=== PATIENT | male | born 1985 | race Caucasian/White ===

== ENCOUNTER → 2019-05-23 13:08 | Outpatient (BNVA) | payer MEDICAID, SELFPAY | PROVIDERS: Family Provider Nurse Practitioner; PCP Nurse Practitioner; Visit Provider Psychiatry & Neurology Psychiatry | DX: F20.89 Other schizophrenia (principal); F10.20 Alcohol dependence, uncomplicated; F12.20 Cannabis dependence, uncomplicated; F17.200 Nicotine dependence, unspecified, uncomplicated; G62.1 Alcoholic polyneuropathy | CPT/HCPCS: 99215 ==

== ENCOUNTER → 2019-07-18 08:11 | Outpatient (BNVA) | payer MEDICAID, SELFPAY | PROVIDERS: Family Provider Nurse Practitioner; PCP Nurse Practitioner; Visit Provider Psychiatry & Neurology Psychiatry | DX: F20.89 Other schizophrenia (principal); F10.20 Alcohol dependence, uncomplicated; G62.1 Alcoholic polyneuropathy; F12.20 Cannabis dependence, uncomplicated; F17.200 Nicotine dependence, unspecified, uncomplicated; F33.2 Major depressive disorder, recurrent severe without psychotic features | CPT/HCPCS: 99214 ==

== ENCOUNTER → 2019-07-24 08:16 | Outpatient (BNVA) | payer MEDICAID, SELFPAY | PROVIDERS: Family Provider Nurse Practitioner; PCP Nurse Practitioner; Visit Provider Psychiatry & Neurology Psychiatry | DX: F10.20 Alcohol dependence, uncomplicated (principal); F20.89 Other schizophrenia | CPT/HCPCS: 99214 ==

== ENCOUNTER → 2019-08-02 08:05 | Outpatient (BNVA) | payer MEDICAID, SELFPAY | PROVIDERS: Family Provider Nurse Practitioner; Visit Provider Psychiatry & Neurology Psychiatry | DX: F20.89 Other schizophrenia (principal); F10.20 Alcohol dependence, uncomplicated; F17.200 Nicotine dependence, unspecified, uncomplicated; G62.1 Alcoholic polyneuropathy; F12.20 Cannabis dependence, uncomplicated | CPT/HCPCS: 99213 ==

== ENCOUNTER → 2019-08-23 08:10 | Outpatient (BNVA) | payer MEDICAID, SELFPAY | PROVIDERS: Family Provider Nurse Practitioner; Visit Provider Psychiatry & Neurology Psychiatry | DX: F20.89 Other schizophrenia (principal); F10.20 Alcohol dependence, uncomplicated; F17.200 Nicotine dependence, unspecified, uncomplicated; F12.20 Cannabis dependence, uncomplicated; G62.1 Alcoholic polyneuropathy | CPT/HCPCS: 99213 ==

== ENCOUNTER → 2019-10-18 08:05 | Outpatient (BNVA) | payer MEDICAID, SELFPAY | PROVIDERS: Family Provider Nurse Practitioner; Visit Provider Psychiatry & Neurology Psychiatry | DX: F20.89 Other schizophrenia (principal); F10.20 Alcohol dependence, uncomplicated; F17.200 Nicotine dependence, unspecified, uncomplicated; F12.20 Cannabis dependence, uncomplicated; G62.1 Alcoholic polyneuropathy; F33.41 Major depressive disorder, recurrent, in partial remission | CPT/HCPCS: 99214 ==

== ENCOUNTER → 2019-12-12 09:38 | Outpatient (BNVA) | payer MEDICAID, SELFPAY | PROVIDERS: Family Provider Nurse Practitioner; Visit Provider Psychiatry & Neurology Psychiatry | DX: F20.89 Other schizophrenia (principal); F10.20 Alcohol dependence, uncomplicated; F17.200 Nicotine dependence, unspecified, uncomplicated; F12.20 Cannabis dependence, uncomplicated; G62.1 Alcoholic polyneuropathy | CPT/HCPCS: 99213 ==

== ENCOUNTER → 2020-02-01 12:42 | Outpatient (BNVA) | payer MEDICAID, SELFPAY | PROVIDERS: Family Provider Nurse Practitioner; Visit Provider Psychiatry & Neurology Psychiatry | DX: F20.89 Other schizophrenia (principal); F10.20 Alcohol dependence, uncomplicated; F12.20 Cannabis dependence, uncomplicated; F17.200 Nicotine dependence, unspecified, uncomplicated; G62.1 Alcoholic polyneuropathy | CPT/HCPCS: 99215 ==

== ENCOUNTER → 2020-02-07 11:29 | Outpatient (BNVA) | payer MEDICAID, SELFPAY | PROVIDERS: Family Provider Nurse Practitioner; Visit Provider Psychiatry & Neurology Psychiatry | DX: F20.89 Other schizophrenia (principal); F10.20 Alcohol dependence, uncomplicated; F17.200 Nicotine dependence, unspecified, uncomplicated; F12.20 Cannabis dependence, uncomplicated; G62.1 Alcoholic polyneuropathy | CPT/HCPCS: 99214 ==

== ENCOUNTER → 2020-02-15 15:34 | Outpatient (BNVA) | payer MEDICAID, SELFPAY | PROVIDERS: Family Provider Nurse Practitioner; Visit Provider Psychiatry & Neurology Psychiatry | DX: F20.89 Other schizophrenia (principal); F10.20 Alcohol dependence, uncomplicated; F17.200 Nicotine dependence, unspecified, uncomplicated; F12.20 Cannabis dependence, uncomplicated | CPT/HCPCS: 90832 ==

== ENCOUNTER → 2020-03-13 08:45 | Outpatient (BNVA) | payer MEDICAID, SELFPAY | PROVIDERS: Family Provider Nurse Practitioner; Visit Provider Psychiatry & Neurology Psychiatry | DX: F20.89 Other schizophrenia (principal); F10.20 Alcohol dependence, uncomplicated; F12.20 Cannabis dependence, uncomplicated; F17.200 Nicotine dependence, unspecified, uncomplicated | CPT/HCPCS: 99214 ==

== ENCOUNTER → 2020-04-09 08:10 | Outpatient (BNVA) | payer MEDICAID, SELFPAY | PROVIDERS: Family Provider Nurse Practitioner; Visit Provider Psychiatry & Neurology Psychiatry | DX: F20.89 Other schizophrenia (principal); F10.20 Alcohol dependence, uncomplicated; F17.200 Nicotine dependence, unspecified, uncomplicated; F12.20 Cannabis dependence, uncomplicated | CPT/HCPCS: 99214 ==

== ENCOUNTER → 2020-05-07 08:35 | Outpatient (BNVA) | payer MEDICAID, SELFPAY | PROVIDERS: Family Provider Nurse Practitioner; Visit Provider Psychiatry & Neurology Psychiatry | DX: F20.89 Other schizophrenia (principal); F10.20 Alcohol dependence, uncomplicated; F12.20 Cannabis dependence, uncomplicated; F17.200 Nicotine dependence, unspecified, uncomplicated | CPT/HCPCS: 99215 ==

== ENCOUNTER → 2020-06-25 08:09 | Outpatient (BNVA) | payer MEDICAID, SELFPAY | PROVIDERS: Family Provider Nurse Practitioner; Visit Provider Psychiatry & Neurology Psychiatry | DX: F10.20 Alcohol dependence, uncomplicated (principal); F20.89 Other schizophrenia; F12.20 Cannabis dependence, uncomplicated; F17.200 Nicotine dependence, unspecified, uncomplicated; Z79.899 Other long term (current) drug therapy | CPT/HCPCS: 99214 ==

== ENCOUNTER → 2020-08-20 08:07 | Outpatient (BNVA) | payer MEDICAID, SELFPAY | PROVIDERS: Family Provider Nurse Practitioner; Visit Provider Psychiatry & Neurology Psychiatry | DX: F20.89 Other schizophrenia (principal); F10.20 Alcohol dependence, uncomplicated; F12.20 Cannabis dependence, uncomplicated; F17.200 Nicotine dependence, unspecified, uncomplicated | CPT/HCPCS: 99214 ==

== ENCOUNTER → 2020-10-16 13:26 | Outpatient (BNVA) | payer MEDICAID, SELFPAY | PROVIDERS: Family Provider Nurse Practitioner; Visit Provider Psychiatry & Neurology Psychiatry | DX: F20.89 Other schizophrenia (principal); F10.20 Alcohol dependence, uncomplicated; F12.20 Cannabis dependence, uncomplicated; F17.200 Nicotine dependence, unspecified, uncomplicated | CPT/HCPCS: 99214 ==

== ENCOUNTER → 2021-02-26 13:47 | Outpatient (BNVA) | payer MEDICAID, SELFPAY | PROVIDERS: Family Provider Nurse Practitioner; Visit Provider Psychiatry & Neurology Psychiatry | DX: F20.89 Other schizophrenia (principal); G61.0 Guillain-Barre syndrome; F10.20 Alcohol dependence, uncomplicated; F12.20 Cannabis dependence, uncomplicated; F17.200 Nicotine dependence, unspecified, uncomplicated | CPT/HCPCS: 99215 ==

== ENCOUNTER → 2021-03-02 09:19 | Outpatient (BNVA) | payer MEDICAID, SELFPAY | PROVIDERS: Family Provider Nurse Practitioner; Visit Provider Specialist | DX: G61.0 Guillain-Barre syndrome (principal); G62.89 Other specified polyneuropathies; F10.20 Alcohol dependence, uncomplicated; R63.4 Abnormal weight loss; Z68.21 Body mass index [BMI] 21.0-21.9, adult | CPT/HCPCS: 62270; 95913; 99205 ==

== ENCOUNTER 2021-03-02 14:13 | Outpatient (CLI) | payer MEDICAID, SELFPAY ==
[2021-03-02 15:11] LABS: Basophils % 0.4 %; Eosinophils % 0.1 %; Hematocrit 45.3 % (42.0-52.0); Hemoglobin 16.1 g/dL (11.7-16.6); Lymphocytes # 2.4 10^3/uL (0.8-4.8); Lymphocytes % 33.4 %; Mean Corpuscular HGB Conc 35.5 g/dL (30.0-36.0); Mean Corpuscular Hemoglobin 35.5 pg (28.0-34.0); Mean Platelet Volume 9.6 fL (7.4-10.4); Monocytes # 0.7 10^3/uL (0.2-0.9); Monocytes % 9.2 %; Neutrophils # 4.01 10^3/uL (1.8-7.7); Neutrophils % 56.2 %; Nucleated Red Blood Cells % 0 %; Platelet Count 234 10^3/cmm (130-400); Red Blood Count 4.53 10^6/uL (4.1-5.3); Red Cell Distribution Width 16.3 % (12.1-15.1); White Blood Count 7.2 10^3/uL (4.0-10.0)
[2021-03-02 15:44] LABS: Folate Level 2.6 ng/mL (4.5-32.2)
[2021-03-02 15:46] LABS: Alanine Aminotransferase 12 U/L (0-41); Albumin Level 3.4 g/dL (3.5-5.2); Alkaline Phosphatase 109 IU/L (40-130); Anion Gap 19.3 (5-19); Aspartate Amino Transferase 16 U/L (0-40); Blood Urea Nitrogen 5 mg/dL (6-20); C Reactive Protein 7.6 mg/L (0.0-4.9); Calcium 8.4 mg/dL (8.5-10.5); Carbon Dioxide 24 mmol/L (22-29); Chloride 93 mmol/L (98-107); Globulin 2.8 g/dL (1.3-4.6); Glomerular Filtration Rate 127.6 mL/min (90-130); Glucose 99 mg/dL (65-115); Osmolality Calculated 273 mOsm/kg (285-295); Potassium 3.3 mmol/L (3.5-5.1); Sodium 133 mmol/L (136-145); Total Bilirubin 0.7 mg/dL (0.15-1.2); Total Protein 6.2 g/dL (6.6-8.7); Vitamin B12 401 pg/mL (232-1245)
[2021-03-02 15:51] LABS: HIV 1 & 2 Antibody Non-Reactive (Non-Reactiv); HIV 1 & 2 Antigen Non-Reactive (Non-Reactiv)
[2021-03-03 13:18] LABS: COMPLEMENT COMPONENT C3C 122 mg/dL (82-185); COMPLEMENT COMPONENT C4C 20 mg/dL (15-53)
[2021-03-04 11:54] LABS: Erythrocyte Sedimentation Rate 6 mm/hr (0-10)
[2021-03-04 13:58] LABS: CENTROMERE B ANTIBODY <1.0 NEG AI (<1.0 NEG); JO-1 ANTIBODY <1.0 NEG AI (<1.0 NEG); RNP ANTIBODY <1.0 NEG AI (<1.0 NEG); SCL-70 ANTIBODY <1.0 NEG AI (<1.0 NEG); SJOGREN'S ANTIBODY (SS-A) <1.0 NEG AI (<1.0 NEG); SM ANTIBODY <1.0 NEG AI (<1.0 NEG); SS-B <1.0 NEG AI (<1.0 NEG); THYROID PEROXIDASE ANTIBODIES 1 IU/mL (<9)
[2021-03-04 15:46] LABS: COMPLEMENT, TOTAL (CH50) 60 U/mL (31-60)
[2021-03-04 16:07] LABS: ANA SCREEN, IFA NEGATIVE (NEGATIVE)
[2021-03-06 14:27] LABS: DNA AB (DS) CRITHIDIA,IFA NEGATIVE (NEGATIVE)
== END 2021-03-02 14:14 | disposition home or self-care (01) ==
LOC: LAB 14:21
PROVIDERS: PCP Family Medicine; Visit Provider Specialist
DX: G61.81 Chronic inflammatory demyelinating polyneuritis (principal)
CPT/HCPCS: 36415; 80053; 80500; 82164; 82607; 82746; 82945; 83520; 84157; 84443; 85025; 85651; 86140; 86160; 86162; 86235; 86255; 86334; 86376; 86592; 86617; 87070; 87075; 87205; 87806; 89050

== ENCOUNTER → 2021-03-09 13:48 | Outpatient (BNVA) | payer MEDICAID, SELFPAY | PROVIDERS: PCP Family Medicine; Visit Provider Specialist | DX: G62.89 Other specified polyneuropathies (principal); E53.8 Deficiency of other specified B group vitamins; F17.200 Nicotine dependence, unspecified, uncomplicated | CPT/HCPCS: 99214; 99215 ==

== ENCOUNTER 2021-03-15 20:39 | Emergency (ER) | payer MEDICAID, SELFPAY ==
[2021-03-15 22:35] VITALS: BP 147/95; PULSE 100; RESP 18; TEMP 36.6; O2SAT 98; BMI 21.7
--- NOTE | 2021-03-16 01:09 | W.ED.SOB ---
Documented by User: NATALIO Wilson 03/16/21 04:16 HPI - SOB/Dyspnea General: Chief Complaint: Shortness of Breath/Dyspnea Stated Complaint: breathing diff Time Seen by Provider: 03/16/21 00:59 History of Present Illness: HPI Narrative: Patient is a 36-year-old male comes to the ED with chest pain. Symptoms started today around 3 PM. 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 Marquez is following patient and he was supposed to get his first course of treatment this week. Patient says since end of December he had weakness in his legs along with some numbness and tingling. He saw Dr. Marquez and she did some testing diagnosed him with GBS. He has been unable to walk and bed ridden since the end of December. He describes the chest pain that started today as a sharp pain in the left lower part of his chest that comes and goes and is pleuritic in nature. whenever he takes a deep breath sharp pain gets worse. Pain has improved since he first arrived here in the ED. He rates the current pain a 3 out of 10. Denies any shortness of breath, cough, hemoptysis, nausea/vomiting, abdominal pain, fever, chills, bladder or bowel symptoms. Associated symptoms: Reports chest pain; Deny abdominal pain, fever(s), nausea, orthopnea, palpitations or vomiting Review of Systems Const: Denies: fever(s), chills or fatigue Eyes: Denies: change in vision or eye discomfort ENMT: Denies: throat pain, odynophagia, nasal discharge or nasal congestion Card: Reports: chest pain; Denies: palpitations, edema, swelling of feet/ankles, dyspnea on exertion or orthopnea Resp: Reports: pain on inspiration (left lower lung); Denies: dyspnea, productive cough or non-productive cough GI: Denies: abdominal pain, nausea, vomiting, diarrhea, constipation or hematochezia : Denies: flank pain, difficulty urinating, dysuria or hematuria Musc: Denies: neck pain, back pain or extremity swelling Skin/Breast: Denies: rash or new lesions Neuro: Denies: headache(s), numbness in extremities or weakness in extremities [facility] ED PFSH: Medical History Alcohol dependence Cannabis use disorder, moderate, dependence Chain smoker Other schizophrenia Psychiatric care Social History Quit status (tobacco): not considering quitting Second hand smoke exposure: Yes Physical Exam Const: COMMON NORMALS: no acute distress, patient oriented x3 and alert GENERAL APPEARANCE: cooperative and comfortable HENMT: COMMON NORMALS: normocephalic HEAD & SCALP: normocephalic MOUTH: Normal oral and palatal mucosa present THROAT: posterior oropharynx normal and uvula midline Neck/C-Spine: COMMON NORMALS: supple GENERAL: Yes normal visual inspection Resp: COMMON NORMALS: normal respiratory effort, No retractions, No use of accessory muscles and clear to auscultation bilaterally EFFORT & INSPECTION: Yes able to speak in complete sentences, No tachypneic, No respiratory distress and No labored AUSCULTATION: clear to auscultation bilaterally Cardio: COMMON NORMALS: regular rate, regular rhythm, S1 normal heart sound present, S2 normal heart sound present, No gallops present (Cardio), No clicks present (Cardio), No murmurs present (Cardio) and Peripheral pulses 2+ throughout RATE: regular rate RHYTHM: regular rhythm HEART SOUNDS: S1 normal heart sound present and S2 normal heart sound present PERIPHERAL PULSES: Peripheral pulses 2+ throughout GI: COMMON NORMALS: Normal to inspection, nondistended, normoactive bowel sounds present, Soft to palpation, non-tender and no masses PALPATION: Yes Soft to palpation : COMMON NORMALS: Yes no CVA tenderness BLADDER/KIDNEY EXAM: Yes no CVA tenderness Back/Pelvis: COMMON NORMALS: no CVA tenderness Extremity: COMMON NORMALS: normal to inspection Neuro: COMMON NORMALS: patient oriented x3 and moves all extremities SENSORIUM/ORIENTATION: Yes alert Skin: GENERAL SKIN EXAM: dry skin Course Vital Signs: Vital signs: Vital Signs Temperature 98 F 03/15/21 22:35 Pulse Rate 81 03/16/21 04:04 Respiratory Rate 20 H 03/16/21 04:04 Blood Pressure 137/94 03/16/21 04:04 Pulse Oximetry 96 03/16/21 04:04 MDM - SOB/Dyspnea MDM Narrative: Medical decision making narrative: Patient is a 36-year-old male comes to the ED with left-sided pleuritic chest pain that just started several hours before he came to the ED. 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 He is currently being followed by Dr. Marquez for GBS and was scheduled to have his first treatment today March 16 at 7:30 AM. Vitals are stable with blood pressure 147/95, pulse of 100 and O2 sat 98% on room air. Exam shows patient in no acute respiratory distress or pain and rest of exam is benign. CBC and CMP were unremarkable. First troponin was 12. EKG showed normal sinus rhythm with no ST segment elevation or depression seen and a rate of 89 bpm. Chest x-ray showed no acute findings. D-dimer was elevated at 2.36. CTA of chest showed a saddle embolus with signs of right heart strain. I talked with Dr. Osullivan about CT of chest findings and I am transferring care patient over to Dr. Osullivan due to patient's acuity level. Patient will likely need transfer. Lab Data: Attestation: I reviewed the patient's lab results. Labs: Lab Results 03/16/21 03/16/21 03/16/21 01:18 01:18 01:18 WBC 10.8 10^3/uL H 10 ^3/uL (4.0-10.0) RBC 4.66 10^6/uL 10^6 /uL (4.1-5.3) Hgb 17.1 g/dL H g/dL (11.7-16.6) Hct 46.7 % % (42.0-52.0) MCV 100.2 fl H fl (80-94) MCH 36.7 pg H pg (28.0-34.0) MCHC 36.6 g/dL H g/dL (30.0-36.0) RDW 15.2 % H % (12.1-15.1) Plt Count 200 10^3/cmm 10^3 /cmm (130-400) MPV 9.7 fL fL (7.4-10.4) Neut % (Auto) 71.9 % % Lymph % (Auto) 18.6 % % Huntington % (Auto) 8.5 % % Eos % (Auto) 0.1 % % Baso % (Auto) 0.3 % % Neut # (Auto) 7.74 10^3/uL H 10 ^3/uL (1.8-7.7) Lymph # (Auto) 2.0 10^3/uL 10^3/ uL (0.8-4.8) Huntington # (Auto) 0.9 10^3/uL 10^3/ uL (0.2-0.9) Eos # (Auto) 0.0 10^3/uL 10^3/ uL (0.0-0.8) Baso # (Auto) 0.0 10^3/uL 10^3/ uL (0.0-0.1) Nucleated RBC % (a uto) 0 % % Nucleated RBCs # 0.0 /100WBC /100W BC D-Dimer Sodium 133 mmol/L L mmol /L (136-145) Potassium 3.5 mmol/L mmol/L (3.5-5.1) Chloride 95 mmol/L L mmol/ L (98-107) Carbon Dioxide 23 mmol/L mmol/L (22-29) Anion Gap 18.5 (5-19) BUN 2 mg/dL L mg/dL (6-20) Creatinine 0.6 mg/dL L mg/dL (0.7-1.2) GFR Calculation 151.6 mL/min H mL /min (90-130) Glucose 123 mg/dL H mg/dL (65-115) Calculated Osmolal ity 274 mOsm/kg L mOs m/kg (285-295) Calcium 8.0 mg/dL L mg/dL (8.5-10.5) Total Bilirubin 1.0 mg/dL mg/dL (0.15-1.2) AST 12 U/L U/L (0-40) ALT 9 U/L U/L (0-41) Alkaline Phosphata se 140 IU/L H IU/L (40-130) Troponin T Baselin e 12 ng/L ng/L (0-15) Total Protein 6.1 g/dL L g/dL (6.6-8.7) Albumin 3.2 g/dL L g/dL (3.5-5.2) Globulin 2.9 g/dL g/dL (1.3-4.6) 03/16/21 01:44 WBC RBC Hgb Hct MCV MCH MCHC RDW Plt Count MPV Neut % (Auto) Lymph % (Auto) Huntington % (Auto) Eos % (Auto) Baso % (Auto) Neut # (Auto) Lymph # (Auto) Huntington # (Auto) Eos # (Auto) Baso # (Auto) Nucleated RBC % (a uto) Nucleated RBCs # D-Dimer 2.36 ug/mIFEU H u g/mIFEU (0-0.59) Sodium Potassium Chloride Carbon Dioxide Anion Gap BUN Creatinine GFR Calculation Glucose Calculated Osmolal ity Calcium Total Bilirubin AST ALT Alkaline Phosphata se Troponin T Baselin e Total Protein Albumin Globulin Imaging Data^: CXR: Attestation: I personally reviewed and interpreted this imaging study as follows: Radiologist's impression: [address] [place] [id number] ReportSigned Patient: Navarro RingUnit #: [id number]: 1985Acct#:[id number]/Sex: 36 / MADM Date: 03/15/21Loc: ERRoom/Bed:Attending Dr: Ordering Provider/Ordering MD: Sulaiman Bravo Date of Service: 03/16/21 Procedure(s): XR chest 1V portable [id number] Accession Number(s): [id number] Report Number: [id number] PROCEDURE INFORMATION: Exam: XR Chest Exam date and time: 03/16/2021 1:08 AM Age: 36 years old Clinical indication: Pain; On breathing; Additional info: Pleuritic pain TECHNIQUE: Imaging protocol: XR of the chest. Views: 1 view. COMPARISON: MR thoracic spin wo con* [id number] 02/05/2021 1:23 PM FINDINGS: Lungs: The lungs are clear. The left hemidiaphragm is mildly elevated. Pleural spaces: Unremarkable. No pleural effusion. No pneumothorax. Heart/Mediastinum: The heart is normal in size. Right hilar calcified lymph nodes are appreciated. Bones/joints: Mild dextroscoliosis of the thoracic spine is appreciated. No acute fracture is visualized. XR/XR chest 1V portable [id number] IMPRESSION: No acute cardiopulmonary abnormality is seen. No pneumothorax or pleural effusion is visualized. Dictated By:Kirk Lo MDSigned By:Kirk Lo MDSigned Date/Time:03/16/21 0231DD/ 0108 CTA Chest: Attestation: I personally reviewed and interpreted this imaging study as follows: Radiologist's impression: [email or web address] [place] [address] CT Scan Report Signed Patient: Navarro Ring Unit #: [id number] : 1985 Age/Sex: 36 / M ADM Date: 03/15/21 Loc: ER Room/Bed: Attending Dr: Ordering Provider/Ordering MD: Sulaiman Bravo Date of Service: 03/16/21 Procedure(s): CT angio chest PE protcl [id number] Accession Number(s): [id number] Report Number: [id number] PROCEDURE INFORMATION: Exam: CTA Chest With Contrast Exam date and time: 03/16/2021 2:46 AM Age: 36 years old Clinical indication: Pain; On breathing; Additional info: Pleuritic chest pain, elevated d-dimer, immobile TECHNIQUE: Imaging protocol: Computed tomographic angiography of the chest with contrast. 3D rendering (Not supervised by radiologist): MIP and/or 3D reconstructed images were created by the technologist. Radiation optimization: All CT scans at this facility use at least one of these dose optimization techniques: automated exposure control; mA and/or kV adjustment per patient size (includes targeted exams where dose is matched to clinical indication); or iterative reconstruction. Contrast material: OMNI 350; Contrast volume: 95 ml; Contrast route: INTRAVENOUS (IV); COMPARISON: CR (CHEST, ) 03/16/2021 1:21 AM RADIATION DOSE METRICS: Total DLP (mGy-cm): 553.67 FINDINGS: Pulmonary arteries: Saddle embolus is present with emboli in the left lower lobe and right lower lobe segmental pulmonary branches. Aorta: Unremarkable. No aortic aneurysm. No aortic dissection. Lungs: There is patchy opacity in the left lower lobe which may be secondary to atelectasis, pneumonia or pulmonary infarct. 5 mm left lower lobe pulmonary nodule. Pleural spaces: Unremarkable. No pneumothorax. No pleural effusion. Heart: Unremarkable. No cardiomegaly. No pericardial effusion. Heart RV/LV ratio: RV/LV ratio = 1.2. Lymph nodes: Unremarkable. No enlarged lymph nodes. Liver: There is fatty infiltration of the liver. Bones/joints: Unremarkable. No acute fracture. Soft tissues: Unremarkable. CT/CT angio chest PE protcl [id number] IMPRESSION: 1. Saddle embolus with moderate clot burden and right heart strain. 2. Fatty infiltration of the liver. 3. There is patchy opacity in the left lower lobe which may be secondary to atelectasis, pneumonia or pulmonary infarct. 4. 5 mm left lower lobe pulmonary nodule.For patients at low risk (minimal or absent history of smoking and of other known risk factors), no routine follow-up is indicated. For patients at high risk (history of smoking or of other known risk factors), consider optional CT Chest at 12 months. (Reference: Tamra) REFERENCES: Tamra H, et al. Guidelines for Management of Incidental Pulmonary Nodules Detected on CT Images: From the Fleischner Society 2017. Radiology. 2017;284(1):228-243. Dictated By: Robert Slaughter Signed By: Robert Slaughter Signed Date/Time: 03/16/21333 DD/ 5 EKG Data^: EKG 1: Attestation: I personally reviewed and interpreted this EKG as follows: EKG Interpretation Date: 03/16/21 Interpretation: Sinus rhythm, no ST segment elevation or depression seen, 89 bpm. Discharge Plan Discharge Patient Disposition: Admitted As Inpatient Clinical Impression: Pulmonary embolism Qualifiers: Pulmonary embolism type: saddle Chronicity: acute Acute cor pulmonale presence: with acute cor pulmonale Qualified Code(s): I26.02 - Saddle embolus of pulmonary artery with acute cor pulmonale Condition: Stable Coding Level of Care Code ED Lead Supply Worker for Chg Fwd Exam Comprehensive Documented by User: Marc Osullivan DO 03/16/21 04:22 HPI - SOB/Dyspnea General: Chief Complaint: Shortness of Breath/Dyspnea Stated Complaint: breathing diff Time Seen by Provider: 03/16/21 00:59 PFSH ED PFSH: Medical History Alcohol dependence Cannabis use disorder, moderate, dependence Chain smoker Other schizophrenia Psychiatric care Social History Quit status (tobacco): not considering quitting Second hand smoke exposure: Yes Course Consultations: Consultation #1: negro Time: 03:59 Consultation #2: cam Left message Time: 04:02 Vital Signs: Vital signs: Vital Signs Temperature 98 F 03/15/21 22:35 Pulse Rate 81 03/16/21 04:04 Respiratory Rate 20 H 03/16/21 04:04 Blood Pressure 137/94 03/16/21 04:04 Pulse Oximetry 96 03/16/21 04:04 MDM - SOB/Dyspnea MDM Narrative: Medical decision making narrative: This patient was originally seen by Mr. Lawrence PA-C. I agree with his history, evaluation, and treatment. I have evaluated the patient as well. His blood pressure is currently 120/87. Heart rate 90. Saturations are 97% on room air. CTA shows near saddle embolus, with evidence of some right heart strain. Obviously, he is not hypoxic, nontachycardic, and not hypotensive. He would not be a acute thrombectomy/TPA candidate at this point. We have bolused heparin and will start infusion. I have a call out to cardiology for consultation in case thrombectomy were to be needed later. Spoke with hospitalist. They agree to admit. We have no beds in the facility, so he'll be placed on CSU hold in the ER. We have called multiple facilities to see if they have any beds available, and all hospitals in the area are in the same status of no beds available. Lab Data: Labs: Lab Results 03/16/21 03/16/21 03/16/21 01:18 01:18 01:18 WBC 10.8 10^3/uL H 10 ^3/uL (4.0-10.0) RBC 4.66 10^6/uL 10^6 /uL (4.1-5.3) Hgb 17.1 g/dL H g/dL (11.7-16.6) Hct 46.7 % % (42.0-52.0) MCV 100.2 fl H fl (80-94) MCH 36.7 pg H pg (28.0-34.0) MCHC 36.6 g/dL H g/dL (30.0-36.0) RDW 15.2 % H % (12.1-15.1) Plt Count 200 10^3/cmm 10^3 /cmm (130-400) MPV 9.7 fL fL (7.4-10.4) Neut % (Auto) 71.9 % % Lymph % (Auto) 18.6 % % Huntington % (Auto) 8.5 % % Eos % (Auto) 0.1 % % Baso % (Auto) 0.3 % % Neut # (Auto) 7.74 10^3/uL H 10 ^3/uL (1.8-7.7) Lymph # (Auto) 2.0 10^3/uL 10^3/ uL (0.8-4.8) Huntington # (Auto) 0.9 10^3/uL 10^3/ uL (0.2-0.9) Eos # (Auto) 0.0 10^3/uL 10^3/ uL (0.0-0.8) Baso # (Auto) 0.0 10^3/uL 10^3/ uL (0.0-0.1) Nucleated RBC % (a uto) 0 % % Nucleated RBCs # 0.0 /100WBC /100W BC D-Dimer Sodium 133 mmol/L L mmol /L (136-145) Potassium 3.5 mmol/L mmol/L (3.5-5.1) Chloride 95 mmol/L L mmol/ L (98-107) Carbon Dioxide 23 mmol/L mmol/L (22-29) Anion Gap 18.5 (5-19) BUN 2 mg/dL L mg/dL (6-20) Creatinine 0.6 mg/dL L mg/dL (0.7-1.2) GFR Calculation 151.6 mL/min H mL /min (90-130) Glucose 123 mg/dL H mg/dL (65-115) Calculated Osmolal ity 274 mOsm/kg L mOs m/kg (285-295) Calcium 8.0 mg/dL L mg/dL (8.5-10.5) Total Bilirubin 1.0 mg/dL mg/dL (0.15-1.2) AST 12 U/L U/L (0-40) ALT 9 U/L U/L (0-41) Alkaline Phosphata se 140 IU/L H IU/L (40-130) Troponin T Baselin e 12 ng/L ng/L (0-15) Total Protein 6.1 g/dL L g/dL (6.6-8.7) Albumin 3.2 g/dL L g/dL (3.5-5.2) Globulin 2.9 g/dL g/dL (1.3-4.6) 03/16/21 01:44 WBC RBC Hgb Hct MCV MCH MCHC RDW Plt Count MPV Neut % (Auto) Lymph % (Auto) Huntington % (Auto) Eos % (Auto) Baso % (Auto) Neut # (Auto) Lymph # (Auto) Huntington # (Auto) Eos # (Auto) Baso # (Auto) Nucleated RBC % (a uto) Nucleated RBCs # D-Dimer 2.36 ug/mIFEU H u g/mIFEU (0-0.59) Sodium Potassium Chloride Carbon Dioxide Anion Gap BUN Creatinine GFR Calculation Glucose Calculated Osmolal ity Calcium Total Bilirubin AST ALT Alkaline Phosphata se Troponin T Baselin e Total Protein Albumin Globulin Discharge Plan Discharge Patient Disposition: Admitted As Inpatient Clinical Impression: Pulmonary embolism Qualifiers: Pulmonary embolism type: saddle Chronicity: acute Acute cor pulmonale presence: with acute cor pulmonale Qualified Code(s): I26.02 - Saddle embolus of pulmonary artery with acute cor pulmonale Condition: Stable Coding Level of Care Code ED Lead Supply Worker for Trey Fwd Exam Comprehensive
[2021-03-16 01:22] VITALS: BP 147/97; PULSE 76; RESP 16; O2SAT 97
--- NOTE | 2021-03-16 01:22 | ECG_ITS ---
[facility] Test Date: 2021-03-16 Pat Name: Navarro Ring Department: Room: Gender: Male [employer] Operator: : 1985 Requested By: Sulaiman Bravo Order Number: [id number] Maninder MD: FAM MCGEE Measurements Intervals Chamberlain Rate: 89 P: 59 MD: 175 QRS: -52 QRSD: 98 T: 61 QT: 391 QTc: 476 Interpretive Statements SINUS RHYTHM POSSIBLE LEFT ATRIAL ENLARGEMENT [-0.1mV P-WAVE IN V1/V2] LEFT ANTERIOR FASCICULAR BLOCK [QRS AXIS <= -45, QR IN I, RS IN II] No previous ECG available for comparison Electronically Signed On 03-16-2021 19:03:37 GIS SOFTWARE DEVELOPER by FAM MCGEE [email or web address]
[2021-03-16 01:38] LABS: Basophils % 0.3 %; Eosinophils % 0.1 %; Hematocrit 46.7 % (42.0-52.0); Hemoglobin 17.1 g/dL (11.7-16.6); Lymphocytes % 18.6 %; Mean Corpuscular HGB Conc 36.6 g/dL (30.0-36.0); Mean Corpuscular Hemoglobin 36.7 pg (28.0-34.0); Mean Corpuscular Volume 100.2 fl (80-94); Mean Platelet Volume 9.7 fL (7.4-10.4); Monocytes # 0.9 10^3/uL (0.2-0.9); Monocytes % 8.5 %; Neutrophils # 7.74 10^3/uL (1.8-7.7); Neutrophils % 71.9 %; Nucleated Red Blood Cells % 0 %; Platelet Count 200 10^3/cmm (130-400); Red Blood Count 4.66 10^6/uL (4.1-5.3); Red Cell Distribution Width 15.2 % (12.1-15.1); White Blood Count 10.8 10^3/uL (4.0-10.0)
[2021-03-16] MEDS: ketorolac 30 mg/mL INJ IVP (01:46)
[2021-03-16 01:50] LABS: Troponin(5th) Baseline 12 ng/L (0-15)
[2021-03-16 01:53] LABS: Alanine Aminotransferase 9 U/L (0-41); Albumin Level 3.2 g/dL (3.5-5.2); Alkaline Phosphatase 140 IU/L (40-130); Anion Gap 18.5 (5-19); Aspartate Amino Transferase 12 U/L (0-40); Blood Urea Nitrogen 2 mg/dL (6-20); Carbon Dioxide 23 mmol/L (22-29); Chloride 95 mmol/L (98-107); Globulin 2.9 g/dL (1.3-4.6); Glomerular Filtration Rate 151.6 mL/min (90-130); Glucose 123 mg/dL (65-115); Osmolality Calculated 274 mOsm/kg (285-295); Potassium 3.5 mmol/L (3.5-5.1); Sodium 133 mmol/L (136-145); Total Protein 6.1 g/dL (6.6-8.7)
[2021-03-16 02:07] LABS: D Dimer 2.36 ug/mIFEU (0-0.59)
[2021-03-16 02:25] VITALS: BP 121/72; PULSE 76; RESP 16; O2SAT 96
[2021-03-16] MEDS: cloZAPine 100 mg Tablet 200 MG PO (02:38)
[2021-03-16] MEDS: cloZAPine 25 mg Tablet 50 MG PO (02:38)
--- NOTE | 2021-03-16 02:46 | CTR_ITS ---
PROCEDURE INFORMATION: Exam: CTA Chest With Contrast Exam date and time: 03/16/2021 2:46 AM Age: 36 years old Clinical indication: Pain; On breathing; Additional info: Pleuritic chest pain, elevated d-dimer, immobile TECHNIQUE: Imaging protocol: Computed tomographic angiography of the chest with contrast. 3D rendering (Not supervised by radiologist): MIP and/or 3D reconstructed images were created by the technologist. Radiation optimization: All CT scans at this facility use at least one of these dose optimization techniques: automated exposure control; mA and/or kV adjustment per patient size (includes targeted exams where dose is matched to clinical indication); or iterative reconstruction. Contrast material: OMNI 350; Contrast volume: 95 ml; Contrast route: INTRAVENOUS (IV); COMPARISON: CR (CHEST, ) 03/16/2021 1:21 AM RADIATION DOSE METRICS: Total DLP (mGy-cm): 553.67 FINDINGS: Pulmonary arteries: Saddle embolus is present with emboli in the left lower lobe and right lower lobe segmental pulmonary branches. Aorta: Unremarkable. No aortic aneurysm. No aortic dissection. Lungs: There is patchy opacity in the left lower lobe which may be secondary to atelectasis, pneumonia or pulmonary infarct. 5 mm left lower lobe pulmonary nodule. Pleural spaces: Unremarkable. No pneumothorax. No pleural effusion. Heart: Unremarkable. No cardiomegaly. No pericardial effusion. Heart RV/LV ratio: RV/LV ratio = 1.2. Lymph nodes: Unremarkable. No enlarged lymph nodes. Liver: There is fatty infiltration of the liver. Bones/joints: Unremarkable. No acute fracture. Soft tissues: Unremarkable. CT/CT angio chest PE protcl [id number] IMPRESSION: 1. Saddle embolus with moderate clot burden and right heart strain. 2. Fatty infiltration of the liver. 3. There is patchy opacity in the left lower lobe which may be secondary to atelectasis, pneumonia or pulmonary infarct. 4. 5 mm left lower lobe pulmonary nodule.For patients at low risk (minimal or absent history of smoking and of other known risk factors), no routine follow-up is indicated. For patients at high risk (history of smoking or of other known risk factors), consider optional CT Chest at 12 months. (Reference: Tamra) REFERENCES: Tamra Krishna et al. Guidelines for Management of Incidental Pulmonary Nodules Detected on CT Images: From the Fleischner Society 2017. Radiology. 2017;284(1):228-243.
[2021-03-16] MEDS: iohexol 350 mg/mL 100 mL Btl IV (03:16)
[2021-03-16 04:04] VITALS: BP 137/94; PULSE 81; RESP 20; O2SAT 96
[2021-03-16] MEDS: heparin 5,000 unit/mL INJ 1 mL 4000 UNIT IVP (04:15)
[2021-03-16 05:30] LABS: Troponin 5 2HR 14.75 ng/L (0-15); Troponin 5 2HR Delta 2.75 ABS# (0-10)
--- NOTE | 2021-03-16 05:35 | USCV_ITS ---
Navarro Ring Age: 36 Gender: M : 1985 Exam Date: 03/16/2021 06:27 Ordering Phys: Lidya Atkinson MD Technologist: Exam Location: [facility] [place] Indication: PE HISTORY: Lower extremity edema. PROCEDURES: The venous duplex Doppler examination of both lower extremities was performed in the standard fashion. The following venous structures were evaluated: common femoral vein, profunda vein, proximal portion of the greater saphenous vein, superficial femoral vein, and the popliteal vein. In addition, the posterior tibial and peroneal trunk were evaluated. FINDINGS: THERE IS NON OCCLUDING DVT IN RT LEG FROM FEMORAL VEIN, POPLETEAL AND PERINEAL TRUNK CONCLUSIONS Non occlusive DVT in RLE femoral vein, popliteal vein and peroneal trunk. No evidence of left lower extremity DVT. Hang Day MD (Electronically Signed) Final Date: 16 March 2021 10:45 S
--- NOTE | 2021-03-16 05:35 | USCV_ITS ---
Navarro Ring Age: 36 Gender: M : 1985 Exam Date: 03/16/2021 06:15 Ordering Phys: Lidya Atkinson MD Technologist: Ex[place] [facility] [place]: PE BP: 123 / 90 HR: 85 Rhythm: Sinus Technical Quality: Good MEASUREMENTS (Male / Female) Normal Values 2D ECHO LV Diastolic Diameter PLAX 3.6 cm 4.2 - 5.9 / 3.9 - 5.3 cm LV Systolic Diameter PLAX 2.7 cm IVS Diastolic Thickness 0.9 cm 0.6 - 1.0 / 0.6 - 0.9 cm IVS Systolic Thickness 1.2 cm LVPW Diastolic Thickness 0.6 cm 0.6 - 1.0 / 0.6 - 0.9 cm LVPW Systolic Thickness 1.4 cm LVOT Diameter 2.0 cm LV Ejection Fraction 2D Teich 50.5 % LV Ejection Fraction MOD 2C 65.3 % LV Ejection Fraction 2C AL 65.5 % LA Diameter 2.6 cm LA Width 2.7 cm LA Height 3.2 cm RA Width 3.4 cm RA Height 3.8 cm Aorta at Sinotubular Diameter 3.2 cm M-MODE LV Diastolic Diameter MM 4.1 cm 4.2 - 5.9 / 3.9 - 5.3 cm LV Systolic Diameter MM 3.0 cm LV Ejection Fraction MM Teich 53.7 % IVS Diastolic Thickness MM 0.7 cm 0.6 - 1.0 / 0.6 - 0.9 cm IVS Systolic Thickness MM 1.2 cm LVPW Diastolic Thickness MM 0.9 cm 0.6 - 1.0 / 0.6 - 0.9 cm LVPW Systolic Thickness MM 1.4 cm RV Diastolic Diameter MM 1.5 cm Aortic Annulus Diameter 3.2 cm LA Ao Ratio MM 0.9 MV E Point Septal Separation 0.7 cm DOPPLER AV Peak Velocity 110.0 cm/s LVOT Peak Velocity 99.0 cm/s AV Area Cont Eq vti 3.0 cm squared AV Area Cont Eq pk 2.9 cm squared MV Area PHT 5.1 cm squared Mitral E to A Ratio 0.7 MV E' Velocity 30.5 cm/s Mitral E to MV E' Ratio 5.2 Mitral E to LV E' Lateral Ratio 5.1 Mitral E to LV E' Septal Ratio 5.5 TR Peak Velocity 161.0 cm/s TR Peak Gradient 10.4 mmHg TV Peak E Velocity 76.0 cm/s Right Atrial Pressure 3.0 mmHg Pulmonary Artery Systolic Pressu 13.4 mmHg FINDINGS Left Ventricle Normal left ventricular size, systolic function and wall thickness, with no regional wall motion abnormalities. Left ventricular ejection fraction is estimated at 65 %. Normal diastolic function. Right Ventricle Normal right ventricular size and systolic function. RVSP could not be calculated due to incomplete tricuspid regurgitation velocity profile. Right Atrium Normal right atrial size. Right atrial pressure estimated at 3 mmHg. Left Atrium Normal left atrial size. Mitral Valve Structurally normal mitral valve. No mitral valve stenosis. Trace mitral valve regurgitation. Aortic Valve Structurally normal trileaflet aortic valve. No aortic valve stenosis. No aortic valve regurgitation. Tricuspid Valve Structurally normal tricuspid valve. No tricuspid valve stenosis. Trace tricuspid valve regurgitation. Pulmonic Valve Structurally normal pulmonic valve. No pulmonary valve stenosis. No pulmonary valve regurgitation. Pericardium No pericardial effusion. Aorta Normal-sized aortic root. Normal-sized inferior vena cava. CONCLUSIONS 1. Normal left ventricular size, systolic function and wall thickness, with no regional wall motion abnormalities. Left ventricular ejection fraction is estimated at 65 %. Normal diastolic function. 2. No significant valvular abnormality. 3. Normal right ventricular size and systolic function. 4. No prior similar studies to compare. Anh Lemus MD (Electronically Signed) Final Date: 16 March 2021 12:21 S
--- NOTE | 2021-03-16 05:42 | PM.HP ---
Providers/Chief Complaint Primary Care Provider: REINIER ALONZO MD Chief Complaint: breathing diff History of Present Illness Navarro Ring is a 36 year old male Medications/Allergies Home Medications Medication Instructions Recorded Confirmed Last Taken Type citalopram 20 mg tablet 20 mg PO DAILY #30 tab 06/25/20 03/02/21 Unknown Rx clozapine 100 mg tablet See Rx Instructions PO .COMPLEX 06/25/20 03/02/21 Unknown Rx #90 tab clozapine 50 mg tablet 50 mg PO .qhs #30 tab 06/25/20 03/02/21 Unknown Rx Allergies Allergy/AdvReac Type Severity Reaction Status Date / Time No Known Allergies Allergy Verified 03/09/21 14:51 PFSH Acute PFSH: Medical History Alcohol dependence Cannabis use disorder, moderate, dependence Chain smoker Other schizophrenia Psychiatric care Social History Quit status (tobacco): not considering quitting Second hand smoke exposure: Yes Vitals/I&O/Wt Last Vital Signs Temp 98 F 03/15/21 22:35 Pulse 81 03/16/21 04:04 Resp 20 H 03/16/21 04:04 BP 137/94 03/16/21 04:04 Pulse Ox 96 03/16/21 04:04 Weight last 48 hrs Weight 72.575 kg Data : 03/16/21 01:18 03/16/21 01:18 Coding Level of Care Code Acute Biology Specimen Technician for Trey Hyman
[2021-03-16 05:55] LABS: SARS Covid-2 Antigen Negative (Negative)
[2021-03-16] MEDS: ondansetron 2 mg/ML SDV 2 mL 4 MG IVP (06:44)
--- NOTE | 2021-03-16 08:05 | PC.NURSE ---
Recieved report from DEMETRIUS Breaux. EMS arrived shortly after report and transferred pt to another facility.
== END 2021-03-16 08:06 | disposition admitted as inpatient to this hospital (09) ==
PROVIDERS: Physician Assistant; Emergency Provider Emergency Medicine; PCP Family Medicine
DX: I26.02 Saddle embolus of pulmonary artery with acute cor pulmonale (principal); F17.200 Nicotine dependence, unspecified, uncomplicated
CPT/HCPCS: 71045; 71275; 80053; 84484; 85025; 85378; 87426; 93005; 93306; 93970; 96374; 96375; 99285; 99291; J1644; J1885; J2405; Q9967

== ENCOUNTER 2021-03-26 08:01 | Outpatient (RCR) | payer MEDICAID, SELFPAY ==
[2021-03-23 08:28] VITALS: BP 131/90; PULSE 125; RESP 20; TEMP 36.7; O2SAT 98; BMI 20.9
[2021-03-23 09:14] VITALS: BP 127/80; PULSE 114; RESP 20; TEMP 36.8; O2SAT 96
[2021-03-23 09:29] VITALS: BP 121/84; PULSE 108; RESP 20; TEMP 36.8; O2SAT 96
[2021-03-23 10:00] VITALS: BP 122/77; PULSE 103; RESP 18; O2SAT 97
[2021-03-23 10:31] VITALS: BP 139/89; PULSE 97; RESP 18; O2SAT 96
[2021-03-23 11:00] VITALS: BP 133/88; PULSE 90; RESP 16; O2SAT 97
--- NOTE | 2021-03-23 11:38 | PC.NURSE ---
patient tolerated first dose IVIG well, no s/s of reaction during titration.
[2021-03-24 08:20] VITALS: BP 126/82; PULSE 117; RESP 18; TEMP 36.3; O2SAT 95
[2021-03-25 08:00] VITALS: BP 116/88; PULSE 113; RESP 18; TEMP 36.5; O2SAT 96
[2021-03-26 08:13] VITALS: BP 127/84; PULSE 110; RESP 18; TEMP 36.3; O2SAT 96
--- NOTE | 2021-03-26 10:51 | PC.NURSE ---
Pt completed 4 consecutive days of IVIG 0.5 mg/kg and Thiamine 100 mg IM as ordered. Pt to return to GI lab on Tuesday to start weekly infusions of IVIG 0.4 mg/kg and Thiamine 100 mg IM as ordered. Tolerated infusions well. No reaction noted. States he is moderately fatigued. Noted to sleep during infusions.
== END 2021-03-27 23:59 | disposition home or self-care (01) ==
LOC: GILAB 08:01
PROVIDERS: PCP Family Medicine; Visit Provider Specialist
DX: R29.90 Unspecified symptoms and signs involving the nervous system (principal)
CPT/HCPCS: 96365; 96366; 96372; J1568; J3411

== ENCOUNTER 2021-04-20 12:20 | Outpatient (RCR) | payer MEDICAID, SELFPAY ==
--- NOTE | 2021-03-30 11:50 | PC.NURSE ---
Pt to GI lab for IVIG infusion. Pt states he is feeling a little stronger. Able to bring toes up towards nose now. Complains of mild fatigue but otherwise tolerating infusions well.
[2021-03-30 12:14] VITALS: BP 129/94; PULSE 98; RESP 18; TEMP 36.5; O2SAT 98
[2021-04-06 12:00] VITALS: BP 119/79; PULSE 99; RESP 18; TEMP 36.3; O2SAT 99
[2021-04-13 13:42] VITALS: BP 112/83; PULSE 100; RESP 18; TEMP 36.3; O2SAT 98
[2021-04-20 12:52] VITALS: BP 118/75; PULSE 86; RESP 18; TEMP 36.2; O2SAT 100
== END 2021-04-27 23:59 | disposition home or self-care (01) ==
LOC: GILAB 12:20
PROVIDERS: PCP Family Medicine; Visit Provider Specialist
DX: R29.90 Unspecified symptoms and signs involving the nervous system (principal)
CPT/HCPCS: 96365; 96366; 96372; J1568; J3411

== ENCOUNTER → 2021-04-22 08:59 | Outpatient (BNVA) | payer MEDICAID, SELFPAY | PROVIDERS: PCP Family Medicine; Visit Provider Specialist | DX: G61.0 Guillain-Barre syndrome (principal); G62.89 Other specified polyneuropathies; F10.239 Alcohol dependence with withdrawal, unspecified; F20.89 Other schizophrenia; Z86.718 Personal history of other venous thrombosis and embolism; Z79.01 Long term (current) use of anticoagulants | CPT/HCPCS: 99215 ==

== ENCOUNTER → 2021-04-24 14:20 | Outpatient (BNVA) | payer MEDICAID, SELFPAY | PROVIDERS: PCP Family Medicine; Visit Provider Psychiatry & Neurology Psychiatry | DX: F20.89 Other schizophrenia (principal); F12.20 Cannabis dependence, uncomplicated; F10.239 Alcohol dependence with withdrawal, unspecified; F17.200 Nicotine dependence, unspecified, uncomplicated; G61.81 Chronic inflammatory demyelinating polyneuritis; G62.89 Other specified polyneuropathies | CPT/HCPCS: 99214 ==

== ENCOUNTER → 2021-04-27 12:09 | Day surgery (SDC) | payer MEDICAID, SELFPAY ==
[2021-04-27 12:20] VITALS: BP 132/80; PULSE 88; RESP 18; TEMP 36.5; O2SAT 98
== END ==
PROVIDERS: PCP Family Medicine; Visit Provider Specialist
DX: R29.90 Unspecified symptoms and signs involving the nervous system (principal)
CPT/HCPCS: 96365; J1568

== ENCOUNTER 2021-05-11 12:00 | Outpatient (RCR) | payer MEDICAID, SELFPAY ==
[2021-05-05 12:45] VITALS: BP 126/82; PULSE 90; RESP 18; TEMP 36.7; O2SAT 100
[2021-05-11 12:49] VITALS: BP 119/87; PULSE 88; RESP 18; TEMP 36.3; O2SAT 99
[2021-05-20 09:01] VITALS: BMI 20.9
== END 2021-05-25 23:59 | disposition home or self-care (01) ==
LOC: GILAB 12:00
PROVIDERS: PCP Family Medicine; Visit Provider Specialist
DX: R29.90 Unspecified symptoms and signs involving the nervous system (principal)
CPT/HCPCS: 96365; 96366; J1568

== ENCOUNTER → 2021-06-19 14:06 | Outpatient (BNVA) | payer MEDICAID, SELFPAY | PROVIDERS: PCP Family Medicine; Visit Provider Psychiatry & Neurology Psychiatry | DX: F20.89 Other schizophrenia (principal); F12.20 Cannabis dependence, uncomplicated; Z79.899 Other long term (current) drug therapy; G61.81 Chronic inflammatory demyelinating polyneuritis; F10.239 Alcohol dependence with withdrawal, unspecified; F17.200 Nicotine dependence, unspecified, uncomplicated | CPT/HCPCS: 85025; 99214 ==

== ENCOUNTER 2021-06-23 12:55 | Outpatient (RCR) | payer MEDICAID, SELFPAY ==
[2021-05-26 12:12] VITALS: BP 126/86; PULSE 95; RESP 18; TEMP 36.5; O2SAT 99
[2021-06-02 12:29] VITALS: BP 155/13; PULSE 93; RESP 18; TEMP 36.1; O2SAT 98
[2021-06-08 12:03] VITALS: BP 113/94; PULSE 102; RESP 18; TEMP 36.4; O2SAT 99
[2021-06-16 12:31] VITALS: BP 118/88; PULSE 102; RESP 18; TEMP 36.7; O2SAT 98
[2021-06-23 13:00] VITALS: BP 142/89; PULSE 93; RESP 18; TEMP 36.6; O2SAT 96
== END 2021-06-25 23:59 | disposition home or self-care (01) ==
LOC: GILAB 12:55
PROVIDERS: PCP Family Medicine; Visit Provider Specialist
DX: R29.90 Unspecified symptoms and signs involving the nervous system (principal)
CPT/HCPCS: 96365; 96366; J1568

== ENCOUNTER 2021-07-20 11:14 | Outpatient (RCR) | payer MEDICAID, SELFPAY ==
[2021-06-29 12:20] VITALS: BP 128/91; PULSE 101; RESP 18; TEMP 36.1; O2SAT 98
[2021-07-06 12:18] VITALS: BP 132/89; PULSE 86; RESP 18; TEMP 36.1; O2SAT 97
[2021-07-15 13:08] VITALS: BP 128/81; PULSE 92; RESP 18; TEMP 36.8; O2SAT 98
[2021-07-20 11:41] VITALS: BP 133/95; PULSE 90; RESP 18; TEMP 36.7; O2SAT 100
== END 2021-07-25 23:59 | disposition home or self-care (01) ==
LOC: GILAB 11:14
PROVIDERS: PCP Family Medicine; Visit Provider Specialist
DX: R29.90 Unspecified symptoms and signs involving the nervous system (principal)
CPT/HCPCS: 96365; 96366; J1568

== ENCOUNTER → 2021-08-20 14:36 | Outpatient (BNVA) | payer MEDICAID, SELFPAY | PROVIDERS: PCP Family Medicine; Visit Provider Psychiatry & Neurology Psychiatry | DX: F20.89 Other schizophrenia (principal); F17.200 Nicotine dependence, unspecified, uncomplicated; F10.239 Alcohol dependence with withdrawal, unspecified; F12.20 Cannabis dependence, uncomplicated; Z79.899 Other long term (current) drug therapy | CPT/HCPCS: 85007; 85027; 99213 ==

== ENCOUNTER 2021-08-25 11:34 | Outpatient (RCR) | payer MEDICAID, SELFPAY ==
[2021-07-27 12:20] VITALS: BP 139/96; PULSE 92; RESP 18; TEMP 36.7; O2SAT 99
[2021-08-03 11:59] VITALS: BP 140/89; PULSE 100; RESP 18; TEMP 36.6; O2SAT 99
[2021-08-10 12:29] VITALS: BP 130/90; PULSE 94; RESP 18; TEMP 36.7; O2SAT 99
[2021-08-21 10:52] VITALS: BP 129/88; PULSE 97; RESP 18; TEMP 36.4; O2SAT 100
[2021-08-25 11:50] VITALS: BP 139/90; PULSE 99; RESP 18; TEMP 36.1; O2SAT 99
== END 2021-08-25 23:59 | disposition home or self-care (01) ==
LOC: GILAB 11:34
PROVIDERS: PCP Family Medicine; Visit Provider Specialist
DX: R29.90 Unspecified symptoms and signs involving the nervous system (principal)
CPT/HCPCS: 96365; J1568

== ENCOUNTER 2021-09-21 12:55 | Outpatient (RCR) | payer MEDICAID, SELFPAY ==
[2021-08-31 12:21] VITALS: BP 139/94; PULSE 94; RESP 18; TEMP 36.6; O2SAT 97
[2021-09-14 12:15] VITALS: BP 151/97; PULSE 81; RESP 18; TEMP 36.5; O2SAT 98
[2021-09-21 13:18] VITALS: BP 132/93; PULSE 104; RESP 18; TEMP 36.9; O2SAT 98
== END 2021-09-24 23:59 | disposition home or self-care (01) ==
LOC: GILAB 12:55
PROVIDERS: PCP Family Medicine; Visit Provider Specialist
DX: R29.90 Unspecified symptoms and signs involving the nervous system (principal)
CPT/HCPCS: 96365; 96366; J1568

== ENCOUNTER 2021-10-19 11:50 | Outpatient (RCR) | payer MEDICAID, SELFPAY ==
[2021-10-05 12:28] VITALS: BP 127/86; PULSE 94; RESP 18; TEMP 36.1; O2SAT 99
[2021-10-19 12:10] VITALS: BP 145/98; PULSE 85; RESP 18; TEMP 36.7; O2SAT 96
== END 2021-10-25 23:59 | disposition home or self-care (01) ==
LOC: GILAB 11:50
PROVIDERS: PCP Family Medicine; Visit Provider Specialist
DX: R29.90 Unspecified symptoms and signs involving the nervous system (principal)
CPT/HCPCS: 96365; J1568

== ENCOUNTER 2021-11-24 09:50 | Outpatient (RCR) | payer MEDICAID, SELFPAY ==
[2021-11-02 12:43] VITALS: BP 120/86; PULSE 100; RESP 18; TEMP 36.3; O2SAT 98
[2021-11-09 11:13] VITALS: BP 135/106; PULSE 90; RESP 18; TEMP 36.1; O2SAT 98
[2021-11-24 10:06] VITALS: BP 140/83; PULSE 83; RESP 18; TEMP 36.9; O2SAT 98
== END 2021-11-25 23:59 | disposition home or self-care (01) ==
LOC: GILAB 09:50
PROVIDERS: PCP Family Medicine; Visit Provider Specialist
DX: G62.82 Radiation-induced polyneuropathy (principal)
CPT/HCPCS: 96365; J1568

== ENCOUNTER 2021-12-21 11:31 | Outpatient (RCR) | payer MEDICAID, SELFPAY ==
[2021-12-02 14:15] VITALS: BP 144/98; PULSE 93; RESP 18; TEMP 36.6; O2SAT 99
[2021-12-09 11:32] VITALS: BP 137/96; PULSE 93; RESP 18; TEMP 36.7; O2SAT 97
[2021-12-21 11:54] VITALS: BP 136/89; PULSE 88; RESP 18; TEMP 36.4; O2SAT 97
== END 2021-12-25 23:59 | disposition home or self-care (01) ==
LOC: GILAB 11:31
PROVIDERS: PCP Family Medicine; Visit Provider Specialist
DX: G62.82 Radiation-induced polyneuropathy (principal)
CPT/HCPCS: 96365; J1568

== ENCOUNTER 2022-01-21 09:53 | Outpatient (RCR) | payer MEDICAID, SELFPAY ==
[2021-12-28 11:50] VITALS: BP 127/88; PULSE 84; RESP 18; TEMP 36.1; O2SAT 99
[2022-01-21 10:15] VITALS: BP 124/94; PULSE 105; RESP 18; TEMP 36.4; O2SAT 98
== END 2022-01-25 23:59 | disposition home or self-care (01) ==
LOC: GILAB 09:53
PROVIDERS: PCP Family Medicine; Visit Provider Specialist
DX: G62.82 Radiation-induced polyneuropathy (principal)
CPT/HCPCS: 96365; J1459; J1568

== ENCOUNTER 2022-02-16 11:14 | Outpatient (RCR) | payer MEDICAID, SELFPAY ==
[2022-01-26 10:29] VITALS: BP 124/89; PULSE 102; RESP 18; TEMP 36.7; O2SAT 98
[2022-02-02 12:05] VITALS: BP 136/98; PULSE 85; RESP 18; TEMP 36.4; O2SAT 100
[2022-02-16 11:48] VITALS: BP 149/102; PULSE 97; RESP 18; TEMP 36.7; O2SAT 98
== END 2022-02-24 23:59 | disposition home or self-care (01) ==
LOC: GILAB 11:14
PROVIDERS: PCP Family Medicine; Visit Provider Specialist
DX: G62.82 Radiation-induced polyneuropathy (principal)
CPT/HCPCS: 96365; J1459

== ENCOUNTER 2022-03-23 11:57 | Outpatient (RCR) | payer MEDICAID, SELFPAY ==
[2022-02-25 11:10] VITALS: BP 141/88; PULSE 100; RESP 18; TEMP 36.4; O2SAT 100
[2022-03-02 11:21] VITALS: BP 148/95; PULSE 73; RESP 18; TEMP 36.2; O2SAT 99
[2022-03-09 12:31] VITALS: BP 135/91; PULSE 90; RESP 18; TEMP 36.6; O2SAT 96
[2022-03-23 12:15] VITALS: BP 137/86; PULSE 79; RESP 18; TEMP 36.6; O2SAT 99
== END 2022-03-27 23:59 | disposition home or self-care (01) ==
LOC: GILAB 11:57
PROVIDERS: PCP Family Medicine; Visit Provider Specialist
DX: G62.82 Radiation-induced polyneuropathy (principal)
CPT/HCPCS: 85007; 85027; 96365; J1459

== ENCOUNTER 2022-04-13 11:44 | Outpatient (RCR) | payer MEDICAID, SELFPAY ==
[2022-03-30 11:25] VITALS: BP 149/100; PULSE 94; RESP 18; TEMP 36.7; O2SAT 99
[2022-04-06 11:21] VITALS: BP 161/106; PULSE 105; RESP 18; TEMP 36.4; O2SAT 97
[2022-04-13 11:57] VITALS: BP 144/88; PULSE 93; RESP 18; TEMP 36.3; O2SAT 99
== END 2022-04-27 23:59 | disposition home or self-care (01) ==
LOC: GILAB 11:44
PROVIDERS: PCP Family Medicine; Visit Provider Specialist
DX: G62.82 Radiation-induced polyneuropathy (principal)
CPT/HCPCS: 96365; 99214; J1459

== ENCOUNTER → 2022-05-04 11:05 | Day surgery (SDC) | payer MEDICAID, SELFPAY ==
[2022-05-04 11:10] VITALS: BP 137/84; PULSE 91; RESP 18; TEMP 36.7; O2SAT 98
== END ==
PROVIDERS: PCP Family Medicine; Visit Provider Specialist
DX: G62.82 Radiation-induced polyneuropathy (principal)
CPT/HCPCS: 96365; J1459

== ENCOUNTER → 2022-05-26 11:54 | Day surgery (SDC) | payer MEDICAID, SELFPAY ==
[2022-05-26 12:09] VITALS: BP 128/104; PULSE 95; RESP 18; TEMP 36.3; O2SAT 98
== END ==
PROVIDERS: PCP Family Medicine; Visit Provider Specialist
DX: G62.82 Radiation-induced polyneuropathy (principal)
CPT/HCPCS: 96365; J1459

== ENCOUNTER → 2022-06-15 11:07 | Day surgery (SDC) | payer MEDICAID, SELFPAY ==
[2022-06-15 11:10] VITALS: BP 157/88; PULSE 105; RESP 18; TEMP 36.7; O2SAT 98
== END ==
PROVIDERS: PCP Family Medicine; Visit Provider Specialist
DX: G62.82 Radiation-induced polyneuropathy (principal)
CPT/HCPCS: 96365; J1459

== ENCOUNTER → 2022-07-01 14:45 | Outpatient (BNVA) | payer MEDICAID, SELFPAY | PROVIDERS: PCP Family Medicine; Visit Provider Psychiatry & Neurology Psychiatry | DX: Z79.899 Other long term (current) drug therapy (principal); F20.89 Other schizophrenia; F12.90 Cannabis use, unspecified, uncomplicated; F10.90 Alcohol use, unspecified, uncomplicated | CPT/HCPCS: 80061; 83036; 85007; 85027 ==

== ENCOUNTER → 2022-07-06 11:55 | Day surgery (SDC) | payer MEDICAID, SELFPAY ==
[2022-07-06 12:20] VITALS: BP 137/88; PULSE 84; RESP 18; TEMP 36.4; O2SAT 97
== END ==
PROVIDERS: PCP Family Medicine; Visit Provider Specialist
DX: G62.9 Polyneuropathy, unspecified (principal)
CPT/HCPCS: 96365; J1459

== ENCOUNTER → 2022-07-30 11:46 | Day surgery (SDC) | payer MEDICAID, SELFPAY ==
[2022-07-30 12:09] VITALS: BP 136/79; PULSE 107; RESP 18; TEMP 36.4; O2SAT 96
== END ==
PROVIDERS: PCP Family Medicine; Visit Provider Specialist
DX: G60.0 Hereditary motor and sensory neuropathy (principal); Z79.899 Other long term (current) drug therapy
CPT/HCPCS: 85007; 85027; 96365; J1459

== ENCOUNTER → 2022-08-17 13:27 | Day surgery (SDC) | payer MEDICAID, SELFPAY ==
[2022-08-17 13:42] VITALS: BP 143/78; PULSE 100; RESP 18; TEMP 36.5; O2SAT 98
== END ==
PROVIDERS: PCP Family Medicine; Visit Provider Specialist
DX: G62.89 Other specified polyneuropathies (principal)
CPT/HCPCS: 96365; J1459

== ENCOUNTER → 2022-09-07 12:16 | Day surgery (SDC) | payer MEDICAID, SELFPAY ==
[2022-09-07 13:06] VITALS: BP 156/90; PULSE 106; RESP 18; TEMP 36.1; O2SAT 96
== END ==
PROVIDERS: PCP Family Medicine; Visit Provider Specialist
DX: G62.89 Other specified polyneuropathies (principal)
CPT/HCPCS: 96365; J1459

== ENCOUNTER → 2022-09-29 11:44 | Day surgery (SDC) | payer MEDICAID, SELFPAY ==
[2022-09-29 12:07] VITALS: BP 142/87; PULSE 86; RESP 18; TEMP 36.5; O2SAT 86
== END ==
PROVIDERS: PCP Family Medicine; Visit Provider Specialist
DX: G62.89 Other specified polyneuropathies (principal); Z79.899 Other long term (current) drug therapy
CPT/HCPCS: 85007; 85027; 96365; J1459

== ENCOUNTER → 2022-10-12 12:25 | Outpatient (BNVA) | payer MEDICAID, SELFPAY | PROVIDERS: PCP Family Medicine; Visit Provider Specialist | DX: G62.89 Other specified polyneuropathies (principal); G61.81 Chronic inflammatory demyelinating polyneuritis | CPT/HCPCS: 99214 ==

== ENCOUNTER → 2022-10-26 11:42 | Day surgery (SDC) | payer MEDICAID, SELFPAY ==
[2022-10-26 12:05] LABS: Basophils % 0.3 %; Hematocrit 50.5 % (42.0-52.0); Hemoglobin 17.6 g/dL (11.7-16.6); Lymphocytes # 1.7 10^3/uL (0.8-4.8); Lymphocytes % 19.1 %; Mean Corpuscular HGB Conc 34.9 g/dL (30.0-36.0); Mean Corpuscular Hemoglobin 32.2 pg (28.0-34.0); Mean Corpuscular Volume 92.5 fl (80-94); Monocytes # 0.5 10^3/uL (0.2-0.9); Monocytes % 5.6 %; Neutrophils # 6.58 10^3/uL (1.8-7.7); Neutrophils % 74.7 %; Nucleated Red Blood Cells % 0 %; Platelet Count 221 10^3/cmm (130-400); Red Blood Count 5.46 10^6/uL (4.1-5.3); Red Cell Distribution Width 14.6 % (12.1-15.1); White Blood Count 8.8 10^3/uL (4.0-10.0)
[2022-10-26 12:13] VITALS: BP 153/96; PULSE 101; RESP 18; TEMP 36.4; O2SAT 98
[2022-10-26 12:24] LABS: Anion Gap 16.2 (5-19); Blood Urea Nitrogen 3 mg/dL (6-20); Calcium 8.7 mg/dL (8.5-10.5); Carbon Dioxide 26 mmol/L (22-29); Chloride 97 mmol/L (98-107); Glomerular Filtration Rate 94.4 mL/min (90-130); Glucose 116 mg/dL (65-115); Osmolality Calculated 280 mOsm/kg (285-295); Potassium 3.2 mmol/L (3.5-5.1); Sodium 136 mmol/L (136-145)
== END ==
PROVIDERS: PCP Family Medicine; Visit Provider Specialist
DX: G60.8 Other hereditary and idiopathic neuropathies (principal)
CPT/HCPCS: 36415; 80048; 85025; 96365; J1459

== ENCOUNTER → 2022-11-23 11:35 | Day surgery (SDC) | payer MEDICAID, SELFPAY ==
[2022-11-23 11:45] VITALS: BP 150/98; PULSE 97; RESP 18; TEMP 36.7; O2SAT 96
[2022-11-23 12:06] LABS: Basophils % 0.3 %; Hematocrit 50.4 % (37-53); Lymphocytes # 2.4 10^3/uL (0.8-4.8); Lymphocytes % 19.2 %; Mean Corpuscular HGB Conc 34.5 g/dL (30-55); Mean Corpuscular Hemoglobin 33.3 pg (27-33); Mean Corpuscular Volume 96.4 fl (82-101); Mean Platelet Volume 9.2 fL (7.4-10.4); Monocytes # 0.5 10^3/uL (0.2-0.9); Monocytes % 4.4 %; Neutrophils # 9.37 10^3/uL (1.8-7.7); Neutrophils % 75.7 %; Nucleated Red Blood Cells % 0 %; Platelet Count 236 10^3/cmm (157-399); Red Blood Count 5.23 10^6/uL (3.85-5.65); Red Cell Distribution Width 15.7 % (12.1-15.1); White Blood Count 12.37 10^3/uL (3.29-11.43)
[2022-11-23 12:15] LABS: Anion Gap 12.7 (5-19); Blood Urea Nitrogen 5 mg/dL (6-20); Calcium 8.5 mg/dL (8.5-10.5); Carbon Dioxide 23 mmol/L (22-29); Chloride 101 mmol/L (98-107); Glomerular Filtration Rate 126.2 mL/min (90-130); Glucose 136 mg/dL (65-115); Osmolality Calculated 275 mOsm/kg (285-295); Potassium 3.7 mmol/L (3.5-5.1); Sodium 133 mmol/L (136-145)
== END ==
PROVIDERS: PCP Family Medicine; Visit Provider Specialist
DX: Z01.89 Encounter for other specified special examinations (principal)
CPT/HCPCS: 36415; 80048; 85007; 85025; 85027; 96365; J1459

== ENCOUNTER → 2023-02-25 14:36 | Outpatient (BNVA) | payer MEDICAID, SELFPAY | PROVIDERS: PCP Family Medicine; Visit Provider Psychiatry & Neurology Psychiatry | DX: F20.89 Other schizophrenia (principal); Z79.899 Other long term (current) drug therapy | CPT/HCPCS: 85007; 85027 ==

== ENCOUNTER → 2023-03-29 15:17 | Outpatient (BNVA) | payer MEDICAID, SELFPAY | PROVIDERS: Visit Provider Specialist | DX: R29.90 Unspecified symptoms and signs involving the nervous system (principal); G62.89 Other specified polyneuropathies; I82.5Y2 Chronic embolism and thrombosis of unspecified deep veins of left proximal lower extremity; Z79.01 Long term (current) use of anticoagulants | CPT/HCPCS: 99214 ==

== ENCOUNTER → 2023-04-12 15:28 | Outpatient (BNVA) | payer MEDICAID, SELFPAY | PROVIDERS: Visit Provider Psychiatry & Neurology Psychiatry | DX: F20.89 Other schizophrenia (principal); Z79.899 Other long term (current) drug therapy | CPT/HCPCS: 85007; 85027 ==

== ENCOUNTER → 2023-05-11 13:42 | Outpatient (BNVA) | payer MEDICAID, SELFPAY | PROVIDERS: Visit Provider Psychiatry & Neurology Psychiatry | DX: F20.89 Other schizophrenia (principal); F12.90 Cannabis use, unspecified, uncomplicated; F10.90 Alcohol use, unspecified, uncomplicated; F17.200 Nicotine dependence, unspecified, uncomplicated | CPT/HCPCS: 85007; 85027 ==

== ENCOUNTER → 2023-06-27 15:27 | Outpatient (BNVA) | payer MEDICAID, SELFPAY | PROVIDERS: Visit Provider Psychiatry & Neurology Psychiatry | DX: F20.89 Other schizophrenia (principal); Z79.899 Other long term (current) drug therapy | CPT/HCPCS: 85007; 85027 ==

== ENCOUNTER → 2023-08-29 13:33 | Outpatient (BNVA) | payer OTHER, SELFPAY | PROVIDERS: Visit Provider Psychiatry & Neurology Psychiatry | DX: F20.89 Other schizophrenia (principal); Z79.899 Other long term (current) drug therapy | CPT/HCPCS: 85007; 85027 ==

== ENCOUNTER → 2023-10-05 14:25 | Outpatient (BNVA) | payer OTHER, SELFPAY | PROVIDERS: Visit Provider Psychiatry & Neurology Psychiatry | DX: F20.89 Other schizophrenia (principal); F10.90 Alcohol use, unspecified, uncomplicated; F12.90 Cannabis use, unspecified, uncomplicated; F17.200 Nicotine dependence, unspecified, uncomplicated; Z79.899 Other long term (current) drug therapy | CPT/HCPCS: 85007; 85027 ==

== ENCOUNTER → 2023-11-18 14:02 | Outpatient (BNVA) | payer MEDICAID, SELFPAY | PROVIDERS: Visit Provider Psychiatry & Neurology Psychiatry | DX: F20.89 Other schizophrenia (principal) | CPT/HCPCS: 85007; 85027 ==

== ENCOUNTER → 2024-01-13 13:20 | Outpatient (BNVA) | payer OTHER, SELFPAY | PROVIDERS: Visit Provider Psychiatry & Neurology Psychiatry | DX: F20.89 Other schizophrenia (principal); Z79.899 Other long term (current) drug therapy | CPT/HCPCS: 85007; 85027 ==

== ENCOUNTER → 2024-02-27 15:35 | Outpatient (BNVA) | payer MEDICAID, SELFPAY | PROVIDERS: Visit Provider Psychiatry & Neurology Psychiatry | DX: Z79.899 Other long term (current) drug therapy (principal); F20.89 Other schizophrenia | CPT/HCPCS: 80061; 83036; 85007; 85027 ==

== ENCOUNTER → 2024-04-12 15:28 | Outpatient (BNVA) | payer OTHER, SELFPAY ==
[2024-03-19 14:44] VITALS: BP 145/88
[2024-03-19 14:46] VITALS: BMI 21.7
== END ==
PROVIDERS: Visit Provider Psychiatry & Neurology Psychiatry
DX: F20.89 Other schizophrenia (principal); F10.90 Alcohol use, unspecified, uncomplicated; F12.90 Cannabis use, unspecified, uncomplicated; F17.200 Nicotine dependence, unspecified, uncomplicated; I10 Essential (primary) hypertension; Z79.899 Other long term (current) drug therapy
CPT/HCPCS: 85007; 85027

== ENCOUNTER 2024-05-20 21:03 | Inpatient (IN) | payer MEDICAID, SELFPAY ==
[2024-03-19 14:44] VITALS: BP 145/88
[2024-03-19 14:46] VITALS: BMI 21.7
[2024-05-20 21:04] VITALS: BP 121/79; PULSE 120; RESP 18; TEMP 37.7; O2SAT 96; BMI 21.7
[2024-05-20 22:05] LABS: Basophils # 0.1 10^3/uL (0.0-0.1); Basophils % 0.5 %; Eosinophils % 0.2 %; Hematocrit 48.5 % (37-53); Lymphocytes # 3.6 10^3/uL (0.8-4.8); Lymphocytes % 26.8 %; Mean Corpuscular Hemoglobin 33.2 pg (27-33); Mean Corpuscular Volume 97.6 fl (82-101); Mean Platelet Volume 9.2 fL (7.4-10.4); Monocytes # 1.1 10^3/uL (0.2-0.9); Monocytes % 8.2 %; Neutrophils # 8.48 10^3/uL (1.8-7.7); Nucleated Red Blood Cells % 0 %; Platelet Count 218 10^3/cmm (157-399); Red Blood Count 4.97 10^6/uL (3.85-5.65); Red Cell Distribution Width 13.4 % (12.1-15.1); White Blood Count 13.25 10^3/uL (3.29-11.43)
[2024-05-20 22:29] LABS: Acetaminophen < 5.0 ug/mL (10-30); Alanine Aminotransferase 50 U/L (0-41); Albumin Level 4.4 g/dL (3.5-5.2); Alcohol Level 228 mg/dL (0-10); Alkaline Phosphatase 114 U/L (40-130); Anion Gap 19.2 (5-19); Aspartate Amino Transferase 136 U/L (0-40); Blood Urea Nitrogen 6 mg/dL (6-20); Carbon Dioxide 23 mmol/L (22-29); Chloride 98 mmol/L (98-107); Creatinine Clr Calc Pharmacy 104.9861; Globulin 3.7 g/dL (1.3-4.6); Glomerular Filtration Rate 82.8 mL/min (90-130); Glucose 123 mg/dL (65-115); Osmolality Calculated 281 mOsm/kg (285-295); Potassium 4.2 mmol/L (3.5-5.1); Salicylate 0.5 mg/dL (3-10); Sodium 136 mmol/L (136-145); Total Bilirubin 0.9 mg/dL (0.15-1.2); Total Protein 8.1 g/dL (6.6-8.7)
[2024-05-20 22:30] LABS: Thyroid Stimulating Hormone 1.08 uIU/mL (0.27-4.20)
--- NOTE | 2024-05-20 22:47 | W.ED.PSYCHS ---
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 He presents with worsening hallucinations, including visual, auditory and olfactory. He states he stopped taking his medicine a few days ago. He has been drinking alcohol instead. He has had up to 1 L of whiskey over the last 48 hours or so he says. He is currently not homicidal. He is currently not suicidal. He has had suicidal thoughts previously today though. He does not have a plan. He is here because he is seeking help with his psychiatric crisis . Related Data Previous Rx's ?Medication ?Instructions ?Recorded citalopram 20 mg tablet (Celexa) 20 mg PO DAILY #30 tabs 01/20/24 clozapine 100 mg tablet 100 mg PO QAM #90 tabs 01/20/24 clozapine 50 mg tablet 50 mg PO BEDTIME #30 tabs 01/20/24 apixaban 2.5 mg tablet (Eliquis) See Rx Instructions .Route 04/13/24 .COMPLEX #30 tabs Allergies Allergy/AdvReac Type Severity Reaction Status Date / Time No Known Allergies Allergy Verified 04/12/24 14:06 [facility] PFSH: Medical History Psychiatric care Chain smoker Other schizophrenia Social History Smoking and tobacco/nicotine status: never used tobacco/nicotine Quit status (tobacco/nicotine): not considering quitting Second hand smoke exposure: Yes Physical Exam Const: COMMON NORMALS: no acute distress GENERAL APPEARANCE: cooperative; not ill appearing and not frail appearing HENMT: COMMON NORMALS: normocephalic, atraumatic and Normal external nose present HEAD & SCALP: normocephalic and atraumatic FACE & SINUS: normal facial exam and face symmetric NOSE: Normal external nose present Eye: COMMON NORMALS: Equal, round and reactive pupils present and EOMs intact bilaterally PUPIL: Yes Equal, round and reactive pupils present Neck/C-Spine: GENERAL: Yes trachea midline Chest: CHEST: Yes Symmetrical chest wall rise Resp: COMMON NORMALS: normal respiratory effort, No retractions, No use of accessory muscles and clear to auscultation bilaterally AUSCULTATION: clear to auscultation bilaterally Cardio: COMMON NORMALS: regular rate and regular rhythm RATE: regular rate RHYTHM: regular rhythm GI: COMMON NORMALS: Normal to inspection, nondistended, normoactive bowel sounds present Extremity: COMMON NORMALS: no pedal edema Neuro: NOHEMY COMA SCALE: document GCS findings Nohemy coma scale eye opening: Spontaneous Nohemy coma scale verbal response: Orientated Ogden coma scale motor response: Obey commands Nohemy coma scale total score: 15 SENSORY EXAM: Yes extremities (intact) Psych: COMMON NORMALS: cooperative APPEARANCE: Yes unkempt ATTITUDE: Yes calm, No agitated and No aggressive ACTIVITY/MOTOR BEHAVIOR: Yes appropriate eye contact, Yes psychomotor agitation and Yes fidgeting SPEECH: Yes excessive MOOD & AFFECT: Yes expansive affect (Mildly) THOUGHT PROCESS: disorganized (Mildly) THOUGHT CONTENT: Yes Suicidality present, No Homicidality present and Yes Hallucination(s) present ATTENTION/CONCENTRATION: Yes attention grossly intact MEMORY/COGNITION: Yes memory grossly intact INSIGHT: Fair insight present (Psych) JUDGEMENT: Fair judgement present (Psych) Skin: COMMON NORMALS: no rashes or lesions noted GENERAL SKIN EXAM: no rashes or lesions noted Course Vital Signs: Vital signs: Vital Signs Temperature 99.8 F H 05/20/24 21:04 Pulse Rate 120 H 05/20/24 21:04 Respiratory Rate 18 05/20/24 21:04 Blood Pressure 121/79 05/20/24 21:04 Pulse Oximetry 96 05/20/24 21:04 Oxygen Delivery Me thod Room Air 05/20/24 21:04 MDM - Psych Medical Decision Making Labs are stable. Alcohol level 228, he is tolerating well. He is ambulatory and conversant. No beds available at our facility currently. He is willing to be treated. Medically he appears quite stable. Arrange staff for opening of bed and RN PU. He remains medically stable. He is willing to be admitted. Currently not suicidal, so will not order 96-hour hold. Laboratory is stable. Psychiatry agrees. Lab Data 05/20/24 21:50 05/20/24 21:50 Laboratory Results WBC 13.25 10^3/uL (3.29-11.43) H 05/20/24 21:50 RBC 4.97 10^6/uL (3.85-5.65) 05/20/24 21:50 Hgb 16.50 g/dL (11.27-16.99) 05/20/24 21:50 Hct 48.5 % (37-53) 05/20/24 21:50 MCV 97.6 fl (82-101) 05/20/24 21:50 MCH 33.2 pg (27-33) H 05/20/24 21:50 MCHC 34.0 g/dL (30-55) 05/20/24 21:50 RDW 13.4 % (12.1-15.1) 05/20/24 21:50 Plt Count 218 10^3/cmm (157-399) 05/20/24 21:50 MPV 9.2 fL (7.4-10.4) 05/20/24 21:50 Neut % (Auto) 64.0 % 05/20/24 21:50 Lymph % (Auto) 26.8 % 05/20/24 21:50 [place] % (Auto) 8.2 % 05/20/24 21:50 Eos % (Auto) 0.2 % 05/20/24 21:50 Baso % (Auto) 0.5 % 05/20/24 21:50 Neut # (Auto) 8.48 10^3/uL (1.8-7.7) H 05/20/24 21:50 Lymph # (Auto) 3.6 10^3/uL (0.8-4.8) 05/20/24 21:50 [place] # (Auto) 1.1 10^3/uL (0.2-0.9) H 05/20/24 21:50 Eos # (Auto) 0.0 10^3/uL (0.0-0.8) 05/20/24 21:50 Baso # (Auto) 0.1 10^3/uL (0.0-0.1) 05/20/24 21:50 Nucleated RBC % (auto) 0 % 05/20/24 21:50 Nucleated RBCs # 0.0 /100WBC 05/20/24 21:50 Sodium 136 mmol/L (136-145) 05/20/24 21:50 Potassium 4.2 mmol/L (3.5-5.1) 05/20/24 21:50 Chloride 98 mmol/L (98-107) 05/20/24 21:50 Carbon Dioxide 23 mmol/L (22-29) 05/20/24 21:50 Anion Gap 19.2 (5-19) H 05/20/24 21:50 BUN 6 mg/dL (6-20) 05/20/24 21:50 Creatinine 1.0 mg/dL (0.7-1.2) 05/20/24 21:50 GFR Calculation 82.8 mL/min (90-130) L 05/20/24 21:50 Glucose 123 mg/dL (65-115) H 05/20/24 21:50 Calculated Osmolality 281 mOsm/kg (285-295) L 05/20/24 21:50 Calcium 9.0 mg/dL (8.5-10.5) 05/20/24 21:50 Total Bilirubin 0.9 mg/dL (0.15-1.2) 05/20/24 21:50 AST 136 U/L (0-40) H 05/20/24 21:50 ALT 50 U/L (0-41) H 05/20/24 21:50 Alkaline Phosphatase 114 U/L (40-130) 05/20/24 21:50 Total Protein 8.1 g/dL (6.6-8.7) 05/20/24 21:50 Albumin 4.4 g/dL (3.5-5.2) 05/20/24 21:50 Globulin 3.7 g/dL (1.3-4.6) 05/20/24 21:50 TSH 1.08 uIU/mL (0.27-4.20) 05/20/24 21:50 Urine Color Yellow (Yellow) 05/20/24 23:00 Urine Appearance Clear (CLEAR) 05/20/24 23:00 Urine pH 6.0 (5-7) 05/20/24 23:00 Ur Specific Powell 1.004 (1.005-1.030) L 05/20/24 23:00 Urine Protein Negative (Negative) 05/20/24 23:00 Urine Glucose (UA) Negative (Normal) 05/20/24 23:00 Urine Ketones Trace (Negative) 05/20/24 23:00 Urine Blood Negative (Negative) 05/20/24 23:00 Urine Nitrate Negative (Negative) 05/20/24 23:00 Urine Bilirubin Negative (Negative) 05/20/24 23:00 Urine Urobilinogen 0.2 mg/dL (Negative) 05/20/24 23:00 Ur Leukocyte Esterase 1+ (Negative) A 05/20/24 23:00 Urine RBC 0-4 /hpf (0-2) H 05/20/24 23:00 Urine WBC 5-10 /hpf (0-5) H 05/20/24 23:00 Ur Squamous Epith Cells 0-4 /hpf (0-5) H 05/20/24 23:00 Amorphous Sediment Not Reportable 05/20/24 23:00 Urine Bacteria Trace /hpf (NONE) 05/20/24 23:00 Salicylates 0.5 mg/dL (3-10) L 05/20/24 21:50 Urine Opiates Screen Negative ng/mL (Negative) 05/20/24 23:00 Acetaminophen < 5.0 ug/mL (10-30) L 05/20/24 21:50 Ur Barbiturates Screen Negative ng/mL (Negative) 05/20/24 23:00 Ur Phencyclidine Scrn Negative ng/mL (Negative) 05/20/24 23:00 Ur Amphetamines Screen Positive ng/mL (Negative) H 05/20/24 23:00 U Benzodiazepines Scrn Negative ng/mL (Negative) 05/20/24 23:00 Urine Cocaine Screen Negative ng/mL (Negative) 05/20/24 23:00 U Marijuana (THC) Screen Positive ng/mL (Negative) H 05/20/24 23:00 Ethyl Alcohol 228 mg/dL (0-10) H 05/20/24 21:50 Influenza A (PCR) Negative (Negative) 05/20/24 22:29 Influenza Type B (PCR) Negative (Negative) 05/20/24 22:29 RSV (PCR) Negative (Negative) 05/20/24 22:29 SARS-CoV-2 (PCR) Negative (Negative) 05/20/24 22:29 No radiology studies performed this visit Discharge Plan Discharge Patient Disposition: Admitted As Inpatient Clinical Impression: Other schizophrenia, CIDP (chronic inflammatory demyelinating polyneuropathy) Condition: Stable Print Language: Maltese Coding Level of Care Code ED Bilingual Inside Sales Representative for Trey Hyman
[2024-05-20 23:12] LABS: Influenza A NEGATIVE (Negative); Influenza B NEGATIVE (Negative); Respiratory Syncytial Virus Ce NEGATIVE (Negative); SARS-CoV-2 PCR NEGATIVE (Negative)
[2024-05-20 23:23] LABS: Bilirubin Urine Negative (Negative); Blood Urine Negative (Negative); Glucose Urine UA Negative (Normal); Ketones Urine Trace (Negative); Leukocyte Esterase Urine 1+ (Negative); Nitrate Urine Negative (Negative); Protein Urine Negative (Negative); Specific Gravity, Urine 1.004 (1.005-1.030); Urine Appearance Clear (CLEAR); Urine Color Yellow (Yellow); Urobilinogen Urine 0.2 mg/dL (Negative)
[2024-05-20 23:30] LABS: Amphetamines Screen Urine Positive (Negative); Barbiturates Screen Urine Negative (Negative); Benzodiazepines Screen Urine Negative (Negative); Cocaine Screen Urine Negative (Negative); Opiate Screen Urine Negative (Negative); PCP Screen Urine Negative (Negative); THC Screen Urine Positive (Negative)
[2024-05-20 23:38] LABS: Add Urine Microscopic? YES; Bacteria Urine TRACE /hpf; RBC Urine 0-4 /hpf (0-2); Squamous Epithelial Cell Urine 0-4 /hpf (0-5)
[2024-05-21 05:51] VITALS: BP 105/62; PULSE 80; RESP 17; TEMP 36.8; O2SAT 96
[2024-05-21 06:00] VITALS: BP 136/56; PULSE 97; RESP 18; TEMP 36.6; O2SAT 96
--- NOTE | 2024-05-21 06:30 | PC.ADMIT ---
[address] Admission Note: The patient,Navarro Ring,39 y/o, was given written information regarding hospital policies, unit procedures and contact persons. Patient's smoking status: never smoked. Vital Signs - 8 hr 05/21/24 06:00 05/21/24 23:59 Temperature 98.6 F Pulse Rate 70 Respiratory Rate 18 18 Blood Pressure 148/86 108/64 Pulse Oximetry 98 Oxygen Delivery Method Room Air Pt arrived to NPU by wheelchair at 0600 on a Voluntary hold with no affidavits. Pt signed all admission paperwork with CLIENT SUPPORT ANALYST with no issues. Superficial scratches were noted on pts neck and on bilateral calves, otherwise skin assessment was unremarkable. Pt was then dressed into NPU scrubs at this time. Pt states that he is here today because he ran out of his medications and was unable to go get refills due to the winter weather. While being out of his meds he started drinking and ended up drinking 375ml of whiskey in 48 hours. Pt stated that his mom began to worry about him so he brought himself to the ER. Pt states that he has had 2 previous psych admissions in the past one being at [facility] in 2011 and the last time being at [facility] in 2019 when he attempted to overdose on his Clozaril. Pt is calm and cooperative during assessment and denies si/hi/avh at this time. Pt was orientated to the unit and then shown to his room where he then laid down. All questions answered and support was voiced.
[2024-05-21] MEDS: folic acid 1 mg Tablet PO (09:25)
[2024-05-21] MEDS: multivitamin therapeutic Tablet 1 TAB PO (09:25)
[2024-05-21] MEDS: hyDROXYzine 25 mg Capsule 50 MG PO (09:25)
[2024-05-21] MEDS: thiamine 100 mg Tablet PO (09:25)
[2024-05-21] MEDS: citalopram 20 mg Tablet PO (09:25)
[2024-05-21] MEDS: apixaban 5 mg Tablet 2.5 MG PO (09:25)
--- NOTE | 2024-05-21 12:13 | PC.NURSE ---
NEW ORDERS RECEIVED FROM DR. GARCIA TO RESTART HIS CLOZARIL 100 MG IN AM AND THEN CLOZARIL 250 MG AT BEDTIMES. ORDERS PLACED AND PT UPDATED ON NEW ORDERS. SUPPORT VOICED.
--- NOTE | 2024-05-21 12:43 | W.PM.NPUH&PS ---
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 He presents with worsening hallucinations, including visual, auditory and olfactory. He states he stopped taking his medicine a few days ago. He has been drinking alcohol instead. He has had up to 1 L of whiskey over the last 48 hours or so he says. He is currently not homicidal. He is currently not suicidal. He has had suicidal thoughts previously today though. He does not have a plan. He is here because he is seeking help with his psychiatric crisis . He was admitted to the neuropsychiatric unit for definitive treatment of those issues. He is known to [facility] through inpatient psychiatric services about 13 years ago and outpatient services mostly from that hospitalization forward. He presented with a UDS positive for amphetamines and cannabis as well as a blood alcohol of 228. He presented today reporting: Chief complaint Intoxication leading to hospitalization after family concern. History of the present complaint The patient reports a history of heavy alcohol use, which led to the current hospitalization. The patient became heavily intoxicated, prompting their mother to call for an ambulance. The patient has been drinking daily for years, consuming approximately 375 milliliters of Southern Comfort, equating to about 8 1/2 shots per day. The patient started drinking alcohol in April 2002, during their last semester of high school, and the consumption has progressively increased over time. The patient expresses a desire to stop drinking and acknowledges the need to move on from alcohol use. The patient has a long-standing history of mental health issues, including a diagnosis of schizophrenia prior to 2012, which was initially labeled as stress-induced. The patient experienced a psychotic break in 2007 while in graduate school, studying mathematics. Symptoms at that time included disorganized thoughts, visual hallucinations, and auditory hallucinations. The patient has been on various antipsychotic medications, including Clozapine, which has helped avoid hospitalizations since 2011, except for one in 2019. The patient has also been on citalopram and Eliquis but stopped taking these medications four to five days before the current encounter. The patient reports a history of depression, including feelings of hopelessness and worthlessness. The patient attempted suicide in 2019 after discontinuing medication for about a month. This period coincided with a significant personal stressor: the patient's grandmother, who had been a lifelong support, suffered a stroke in March 2019. The patient was responsible for her care until she was moved to a fpc, which the patient found very stressful and felt like a personal failure. The patient describes themselves as socially withdrawn and experiences anxiety, particularly in social situations. The patient reports feeling like an imposter in various aspects of life, contributing to their anxiety. The patient denies current suicidal ideation but acknowledges past experiences of severe depression and a suicide attempt. The patient has a family history of mental health issues, including depression, anxiety, schizophrenia, bipolar disorder, ADHD, autism, and PTSD. The patient's uncle, a [place] , has PTSD. The patient also mentions a possible mental illness in a paternal aunt, though details are unclear. The patient has been smoking cigarettes since 2004, consuming about a pack a day. The patient occasionally uses marijuana, which began in June 2002, but reports that it affects their memory of dreams. The patient denies using other drugs such as methamphetamine, opiates, or ecstasy and has never attended rehab or received drug and alcohol treatment. The patient has no history of legal issues related to substance use. The patient grew up in a challenging environment, with their mother being an alcoholic during their childhood. The patient lived with their grandparents from a young age, around 7 years old, due to their mother's alcoholism. The patient has a younger half-brother and a half-sister on their father's side, whom they have never met. The patient has never been and has no confirmed biological children, though there is a possibility of having a child from a past relationship. The patient is currently on disability and lives on property owned by their grandmother's trust. Mental health history Diagnosed with schizophrenia prior to 2012, initially labeled as stress-induced. Experienced a psychotic break in 2007 while in graduate school, studying mathematics, with symptoms including disorganized thoughts, visual and auditory hallucinations. Hospitalized in 2011 and 2019. Attempted suicide in 2019 after stopping medication for an extended period, coinciding with a personal crisis involving the care of his grandmother. Has been under psychiatric care for at least 13 years and has been on various medications, including Clozapine, citalopram, and previously Haldol. Reports feelings of depression, imposter syndrome, and social withdrawal. No current suicidal ideation. Family history includes mental illness on both maternal and paternal sides, with an uncle having PTSD. Social history Lives on grandmother's trust property. Has a history of alcohol use starting in April 2002, with daily consumption until hospitalization, typically 375 milliliters of Southern Comfort. Smokes about a pack of cigarettes daily since 2004. Occasional cannabis use since June 2002. No history of drug and alcohol treatment or legal issues related to substance use. Lives with numerous pets, including approximately 20 beagles and 6 other pets. Currently on disability. 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 No history of marriage or biological children, though there is a potential child from a past relationship. Identifies as heterosexual. Has a brother 16 years younger and a half-sister on the father's side, whom he has never met. Lived with grandparents from around age 7 due to mother's alcoholism. Socially withdrawn and finds social interactions challenging. Meds NPU Home Medications ?Medication ?Instructions ?Recorded ?Confirmed ?Last Taken ?Type citalopram 20 mg tablet (Celexa) 20 mg PO DAILY #30 tabs 01/20/24 05/21/24 Unknown Rx clozapine 100 mg tablet 100 mg PO QAM #90 tabs 01/20/24 05/21/24 Unknown Rx clozapine 50 mg tablet 50 mg PO BEDTIME #30 tabs 01/20/24 05/21/24 Unknown Rx apixaban 2.5 mg tablet (Eliquis) See Rx Instructions .Route 04/13/24 05/21/24 Unknown Rx .COMPLEX #30 tabs Allergies Allergy/AdvReac Type Severity Reaction Status Date / Time No Known Allergies Allergy Verified 04/12/24 14:06 PFS NPU PFSH: Medical History Psychiatric care Chain smoker Other schizophrenia Social History Smoking and tobacco/nicotine status: never used tobacco/nicotine Quit status (tobacco/nicotine): not considering quitting Second hand smoke exposure: Yes Mental Status Exam MSE Comments: This is a slender but well-developed white male in hospital scrubs with limited grooming and limited eye contact. No abnormal movements except for mild psychomotor retardation. Cooperative with exam in mild distress. Speech was slightly decreased rate and normal volume.. Mood described as okay, affect congruent. Thought process organized. Thought content: Patient denied suicidal or homicidal ideation, there were no delusions reported or noted, he denied any auditory or visual hallucinations. No current thoughts to hurt or kill self or others. Past suicide attempt in 2019 after stopping medication. Reports seeing faces and images when eyes are closed. No delusions or paranoia; feels quite a bit of weight around. Describes self as socially withdrawn and anxious. Struggles with depression, feelings of hopelessness, and imposter syndrome. Stress related to caring for grandmother after her stroke in 2019. Attention and concentration appeared intact and memory was mostly reliable but none were formally tested. He is alert and oriented x 3. Insight and judgment are limited impulse control impaired. Vitals/I&O/Wt Last Vital Signs Temp 98 F 05/21/24 06:00 Pulse 97 05/21/24 06:00 Resp 18 05/21/24 06:00 BP 136/56 05/21/24 06:00 Pulse Ox 96 05/21/24 06:00 O2 Del Method Room Air 05/21/24 06:00 Weight last 48 hrs Weight 72.575 kg Data NPU 05/20/24 21:50 05/20/24 21:50 A&P Assessment and plan (1) Alcohol use disorder, severe, dependence: (2) Schizophrenia: (3) Cannabis use disorder: (4) Hypertension: (5) Chain smoker: Plan This is an 39-year-old white male with history of addiction issues as well as a long history of psychosis/schizophrenia with limited hospitalizations except during times where he has been inconsistent with his medication. Schizophrenia, with a history of psychotic symptoms including disorganized thoughts, visual and auditory hallucinations, initially presenting in 2007. The patient has been on antipsychotic treatment with Clozapine, which has helped manage symptoms and reduce hospitalizations. There is also a history of a suicide attempt in 2019, associated with medication non-compliance and significant stressors. The patient experiences anxiety and social withdrawal, and reports feelings consistent with imposter syndrome. Patient voluntary and wanting to leave today. He agreed to allow a conversation with his outpatient psychiatrist before considering discharge tomorrow. 1. Restart clozapine as well as other medications. 2. Encourage individual, group and milieu therapy. 3. Continue every 15 minute checks for safety. 4. Obtain collateral information. Given long history with Dr. Simon, will consult with him and identify whether a discharge tomorrow as desired is safe based on the history we have obtained. 5. Encourage sober living treatment after discharge at the highest level care to which she is willing to commit. PDMP PDMP Reviewed: Not Reviewed Attestations NPU Medical Necessity Statement*: Inpatient hospitalization is medically necessary and the clinically appropriate intervention at this time. We will monitor medications and make changes as indicated. He will be in the hospital for over 2 midnights. Likely length of stay 2-4 days. Coding Level of Care Code Acute Code for [facility] Fwd Diagnoses Alcohol use disorder, severe, dependence F10.20 Schizophrenia F20.9 Cannabis use disorder F12.90 Hypertension I10 Chain smoker F17.200
[2024-05-21 13:56] VITALS: BP 145/81; PULSE 74; RESP 16; TEMP 36.8; O2SAT 97
[2024-05-21 16:00] VITALS: RESP 16
[2024-05-21 20:00] VITALS: BP 148/86; PULSE 70; RESP 18; TEMP 37; O2SAT 98
[2024-05-21] MEDS: cloZAPine 100 mg Tablet 250 MG PO (20:27)
[2024-05-21 23:59] VITALS: BP 108/64; RESP 18
[2024-05-22 04:00] VITALS: BP 138/85; RESP 18
[2024-05-22 08:00] VITALS: BP 142/93; PULSE 94; RESP 17; O2SAT 95
[2024-05-22] MEDS: thiamine 100 mg Tablet PO (08:56)
[2024-05-22] MEDS: citalopram 20 mg Tablet PO (08:56)
[2024-05-22] MEDS: folic acid 1 mg Tablet PO (08:56)
[2024-05-22] MEDS: multivitamin therapeutic Tablet 1 TAB PO (08:56)
[2024-05-22] MEDS: cloZAPine 100 mg Tablet PO (08:57)
[2024-05-22] MEDS: apixaban 5 mg Tablet 2.5 MG PO (08:57)
[2024-05-22 12:00] VITALS: BP 140/79; PULSE 94; RESP 17; O2SAT 94
--- NOTE | 2024-05-22 13:23 | W.PM.NPUDCS ---
Diagnoses at Discharge Discharge Diagnosis (1) Alcohol use disorder, severe, dependence: Status: Acute (2) Schizophrenia: Status: Acute (3) Cannabis use disorder: Status: Acute (4) Hypertension: Status: Acute (5) Chain smoker: Status: Acute Reason for Visit Reason for Visit: SI Brief History: History of Present Illness Navarro Ring is a 39 year old male who presented to the emergency department with the following report: Chief Complaint: Psychiatric Symptoms Stated Complaint: SI Time Seen by Provider: 05/20/24 21:11 History of Present Illness: 39-year-old male patient with a history of schizophrenia and 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 He presents with worsening hallucinations, including visual, auditory and olfactory. He states he stopped taking his medicine a few days ago. He has been drinking alcohol instead. He has had up to 1 L of whiskey over the last 48 hours or so he says. He is currently not homicidal. He is currently not suicidal. He has had suicidal thoughts previously today though. He does not have a plan. He is here because he is seeking help with his psychiatric crisis . He was admitted to the neuropsychiatric unit for definitive treatment of those issues. He is known to [facility] through inpatient psychiatric services about 13 years ago and outpatient services mostly from that hospitalization forward. He presented with a UDS positive for amphetamines and cannabis as well as a blood alcohol of 228. He presented today reporting: Chief complaint Intoxication leading to hospitalization after family concern. History of the present complaint The patient reports a history of heavy alcohol use, which led to the current hospitalization. The patient became heavily intoxicated, prompting their mother to call for an ambulance. The patient has been drinking daily for years, consuming approximately 375 milliliters of Southern [place], equating to about 8 1/2 shots per day. The patient started drinking alcohol in April 2002, during their last semester of high school, and the consumption has progressively increased over time. The patient expresses a desire to stop drinking and acknowledges the need to move on from alcohol use. The patient has a long-standing history of mental health issues, including a diagnosis of schizophrenia prior to 2012, which was initially labeled as stress-induced. The patient experienced a psychotic break in 2007 while in graduate school, studying mathematics. Symptoms at that time included disorganized thoughts, visual hallucinations, and auditory hallucinations. The patient has been on various antipsychotic medications, including Clozapine, which has helped avoid hospitalizations since 2011, except for one in 2019. The patient has also been on citalopram and Eliquis but stopped taking these medications four to five days before the current encounter. The patient reports a history of depression, including feelings of hopelessness and worthlessness. The patient attempted suicide in 2019 after discontinuing medication for about a month. This period coincided with a significant personal stressor: the patient's grandmother, who had been a lifelong support, suffered a stroke in March 2019. The patient was responsible for her care until she was moved to a retirement, which the patient found very stressful and felt like a personal failure. The patient describes themselves as socially withdrawn and experiences anxiety, particularly in social situations. The patient reports feeling like an imposter in various aspects of life, contributing to their anxiety. The patient denies current suicidal ideation but acknowledges past experiences of severe depression and a suicide attempt. The patient has a family history of mental health issues, including depression, anxiety, schizophrenia, bipolar disorder, ADHD, autism, and PTSD. The patient's uncle, a [place] , has PTSD. The patient also mentions a possible mental illness in a paternal aunt, though details are unclear. The patient has been smoking cigarettes since 2004, consuming about a pack a day. The patient occasionally uses marijuana, which began in June 2002, but reports that it affects their memory of dreams. The patient denies using other drugs such as methamphetamine, opiates, or ecstasy and has never attended rehab or received drug and alcohol treatment. The patient has no history of legal issues related to substance use. The patient grew up in a challenging environment, with their mother being an alcoholic during their childhood. The patient lived with their grandparents from a young age, around 7 years old, due to their mother's alcoholism. The patient has a younger half-brother and a half-sister on their father's side, whom they have never met. The patient has never been and has no confirmed biological children, though there is a possibility of having a child from a past relationship. The patient is currently on disability and lives on property owned by their grandmother's trust. Mental health history Diagnosed with schizophrenia prior to 2012, initially labeled as stress-induced. Experienced a psychotic break in 2007 while in graduate school, studying mathematics, with symptoms including disorganized thoughts, visual and auditory hallucinations. Hospitalized in 2011 and 2019. Attempted suicide in 2019 after stopping medication for an extended period, coinciding with a personal crisis involving the care of his grandmother. Has been under psychiatric care for at least 13 years and has been on various medications, including Clozapine, citalopram, and previously Haldol. Reports feelings of depression, imposter syndrome, and social withdrawal. No current suicidal ideation. Family history includes mental illness on both maternal and paternal sides, with an uncle having PTSD. Social history Lives on grandmother's trust property. Has a history of alcohol use starting in April 2002, with daily consumption until hospitalization, typically 375 milliliters of [place]. Smokes about a pack of cigarettes daily since 2004. Occasional cannabis use since June 2002. No history of drug and alcohol treatment or legal issues related to substance use. Lives with numerous pets, including approximately 20 beagles and 6 other pets. Currently on disability. 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 No history of marriage or biological children, though there is a potential child from a past relationship. Identifies as heterosexual. Has a brother 16 years younger and a half-sister on the father's side, whom he has never met. Lived with grandparents from around age 7 due to mother's alcoholism. Socially withdrawn and finds social interactions challenging. Mental Status Exam MSE Comments: This is a slender but well-developed white male in hospital scrubs with limited grooming and limited eye contact. No abnormal movements except for mild psychomotor retardation. Cooperative with exam in mild distress. Speech was slightly decreased rate and normal volume.. Mood described as okay, affect congruent. Thought process organized. Thought content: Patient denied suicidal or homicidal ideation, there were no delusions reported or noted, he denied any auditory or visual hallucinations. No current thoughts to hurt or kill self or others. Past suicide attempt in 2019 after stopping medication. Reports seeing faces and images when eyes are closed. No delusions or paranoia; feels quite a bit of weight around. Describes self as socially withdrawn and anxious. Struggles with depression, feelings of hopelessness, and imposter syndrome. Stress related to caring for grandmother after her stroke in 2019. Attention and concentration appeared intact and memory was mostly reliable but none were formally tested. He is alert and oriented x 3. Insight and judgment are limited impulse control impaired. Discharge Data Studies Completed and Pending: Laboratory Results WBC 13.25 10^3/uL (3. 29-11.43) H 05/20/24 21:50 RBC 4.97 10^6/uL (3.8 5-5.65) 05/20/24 21:50 Hgb 16.50 g/dL (11.27 -16.99) 05/20/24 21:50 Hct 48.5 % (37-53) 05/20/24 21:50 MCV 97.6 fl (82-101) 05/20/24 21:50 MCH 33.2 pg (27-33) H 05/20/24 21:50 MCHC 34.0 g/dL (30-55) 05/20/24 21:50 RDW 13.4 % (12.1-15.1 ) 05/20/24 21:50 Plt Count 218 10^3/cmm (157 -399) 05/20/24 21:50 MPV 9.2 fL (7.4-10.4) 05/20/24 21:50 Neut % (Auto) 64.0 % 05/20/24 21:50 Lymph % (Auto) 26.8 % 05/20/24 21:50 [place] % (Auto) 8.2 % 05/20/24 21:50 Eos % (Auto) 0.2 % 05/20/24 21:50 Baso % (Auto) 0.5 % 05/20/24 21:50 Neut # (Auto) 8.48 10^3/uL (1.8 -7.7) H 05/20/24 21:50 Lymph # (Auto) 3.6 10^3/uL (0.8- 4.8) 05/20/24 21:50 [place] # (Auto) 1.1 10^3/uL (0.2- 0.9) H 05/20/24 21:50 Eos # (Auto) 0.0 10^3/uL (0.0- 0.8) 05/20/24 21:50 Baso # (Auto) 0.1 10^3/uL (0.0- 0.1) 05/20/24 21:50 Nucleated RBC % (a uto) 0 % 05/20/24 21:50 Nucleated RBCs # 0.0 /100WBC 05/20/24 21:50 Sodium 136 mmol/L (136-1 45) 05/20/24 21:50 Potassium 4.2 mmol/L (3.5-5 .1) 05/20/24 21:50 Chloride 98 mmol/L (98-107 ) 05/20/24 21:50 Carbon Dioxide 23 mmol/L (22-29) 05/20/24 21:50 Anion Gap 19.2 (5-19) H 05/20/24 21:50 BUN 6 mg/dL (6-20) 05/20/24 21:50 Creatinine 1.0 mg/dL (0.7-1. 2) 05/20/24 21:50 GFR Calculation 82.8 mL/min (90-1 30) L 05/20/24 21:50 Glucose 123 mg/dL (65-115 ) H 05/20/24 21:50 Calculated Osmolal ity 281 mOsm/kg (285- 295) L 05/20/24 21:50 Calcium 9.0 mg/dL (8.5-10 .5) 05/20/24 21:50 Total Bilirubin 0.9 mg/dL (0.15-1 .2) 05/20/24 21:50 AST 136 U/L (0-40) H 05/20/24 21:50 ALT 50 U/L (0-41) H 05/20/24 21:50 Alkaline Phosphata se 114 U/L (40-130) 05/20/24 21:50 Total Protein 8.1 g/dL (6.6-8.7 ) 05/20/24 21:50 Albumin 4.4 g/dL (3.5-5.2 ) 05/20/24 21:50 Globulin 3.7 g/dL (1.3-4.6 ) 05/20/24 21:50 TSH 1.08 uIU/mL (0.27 -4.20) 05/20/24 21:50 Urine Color Yellow (Yellow) 05/20/24 23:00 Urine Appearance Clear (CLEAR) 05/20/24 23:00 Urine pH 6.0 (5-7) 05/20/24 23:00 Ur Specific [place] 1.004 (1.005-1.0 30) L 05/20/24 23:00 Urine Protein Negative (Negati ve) 05/20/24 23:00 Urine Glucose (UA) Negative (Normal ) 05/20/24 23:00 Urine Ketones Trace (Negative) 05/20/24 23:00 Urine Blood Negative (Negati ve) 05/20/24 23:00 Urine Nitrate Negative (Negati ve) 05/20/24 23:00 Urine Bilirubin Negative (Negati ve) 05/20/24 23:00 Urine Urobilinogen 0.2 mg/dL (Negati ve) 05/20/24 23:00 Ur Leukocyte Bailee a[place] 1+ (Negative) A 05/20/24 23:00 Urine RBC 0-4 /hpf (0-2) H 05/20/24 23:00 Urine WBC 5-10 /hpf (0-5) H 05/20/24 23:00 Ur Squamous Epith Cells 0-4 /hpf (0-5) H 05/20/24 23:00 Amorphous Sediment Not Reportable 05/20/24 23:00 Urine Bacteria Trace /hpf (NONE) 05/20/24 23:00 Salicylates 0.5 mg/dL (3-10) L 05/20/24 21:50 Urine Opiates Scre en Negative ng/mL (N egative) 05/20/24 23:00 Acetaminophen < 5.0 ug/mL (10-3 0) L 05/20/24 21:50 Ur Barbiturates Sc reen Negative ng/mL (N egative) 05/20/24 23:00 Ur Phencyclidine S crn Negative ng/mL (N egative) 05/20/24 23:00 Ur Amphetamines Sc reen Positive ng/mL (N egative) H 05/20/24 23:00 U Benzodiazepines Scrn Negative ng/mL (N egative) 05/20/24 23:00 Urine Cocaine Scre en Negative ng/mL (N egative) 05/20/24 23:00 U Marijuana (THC) Screen Positive ng/mL (N egative) H 05/20/24 23:00 Ethyl Alcohol 228 mg/dL (0-10) H 05/20/24 21:50 Influenza A (PCR) Negative (Negati ve) 05/20/24 22:29 Influenza Type B ( PCR) Negative (Negati ve) 05/20/24 22:29 RSV (PCR) Negative (Negati ve) 05/20/24 22:29 SARS-CoV-2 (PCR) Negative (Negati ve) 05/20/24 22:29 Vitals: Last Vital Signs Temp 98.6 F 05/21/24 20:00 Pulse 94 05/22/24 12:00 Resp 17 05/22/24 12:00 BP 140/79 05/22/24 12:00 Pulse Ox 94 05/22/24 12:00 O2 Del Method Room Air 05/21/24 20:00 Discharge Plan Discharge Patient Disposition: Home Condition: Stable Prescriptions: Continued citalopram [Celexa] 20 mg tablet 20 mg PO DAILY Qty: 30 11RF clozapine 100 mg tablet 100 mg PO QAM Qty: 90 11RF Rx Instructions: Take one tablet in the morning and two tablets at night. clozapine 50 mg tablet 50 mg PO BEDTIME Qty: 30 11RF Rx Instructions: Take with two 100mg tabs at night for total nightly dose of 250mg. Eliquis 2.5 mg tablet See Rx Instructions .ROUTE .COMPLEX Qty: 30 11RF Dose Instruction: TAKE 1 TABLET BY MOUTH EVERY DAY Rx Instructions: TAKE 1 TABLET BY MOUTH EVERY DAY Discharge Orders: Discharge Order (Routine); Ordered 05/22/24 Ordered By: John Ring Referrals: [facility] [Outside] - 05/23/24 2:45 pm (hospital follow up with Trisatn Vences) Robert Michel DO [Physician] - 05/30/24 10:00 am Partha Simon DO [Staff Physician] - 06/06/24 3:15 pm Discharge Diet: Regular Discharge Activity: Resume usual activity Patient Instructions: Opioid Safety Discharge Attestations NPU Time Spent in Discharge Care*: less than 30 min Specific Discharge Activities: Specific discharge activities: educating patient, discussing with briefcase sewer/social workers/dc planners, documenting/other paperwork and evaluating patient/reviewing data Coding Level of Care Code Acute Code for Chg Fwd Diagnoses Alcohol use disorder, severe, dependence F10.20 Schizophrenia F20.9 Cannabis use disorder F12.90 Hypertension I10 Chain smoker F17.200
[2024-05-22 16:00] VITALS: BP 133/87; PULSE 104; RESP 17; O2SAT 94
[2024-05-22 18:00] VITALS: BP 133/87; PULSE 104; O2SAT 94
[2024-05-22 20:00] VITALS: BP 138/86; PULSE 103; RESP 16; TEMP 37.1; O2SAT 96
[2024-05-22] MEDS: cloZAPine 100 mg Tablet 250 MG PO (21:39)
== END 2024-05-22 21:50 | disposition home or self-care (01) | DRG 885 ==
LOC: ER 05-21 05:17 → NP 05-21 05:36
PROVIDERS: Admitting Provider Psychiatry & Neurology Psychiatry; Emergency Provider Emergency Medicine; Visit Provider Psychiatry & Neurology Psychiatry
DX: F20.9 Schizophrenia, unspecified (principal); G61.81 Chronic inflammatory demyelinating polyneuritis; F10.20 Alcohol dependence, uncomplicated; I10 Essential (primary) hypertension; F17.210 Nicotine dependence, cigarettes, uncomplicated; Z79.01 Long term (current) use of anticoagulants; Y90.7 Blood alcohol level of 200-239 mg/100 ml; Z86.718 Personal history of other venous thrombosis and embolism; Z86.711 Personal history of pulmonary embolism
CPT/HCPCS: 36415; 80053; 80306; 80307; 81001; 84443; 85025; 87637; 97165; 99285

== ENCOUNTER → 2024-06-26 13:56 | Outpatient (BNVA) | payer OTHER, SELFPAY ==
[2024-03-19 14:44] VITALS: BP 145/88
[2024-03-19 14:46] VITALS: BMI 21.7
== END ==
PROVIDERS: PCP Family Medicine; Visit Provider Psychiatry & Neurology Psychiatry
DX: F20.9 Schizophrenia, unspecified (principal); Z79.899 Other long term (current) drug therapy
CPT/HCPCS: 85007; 85027

== ENCOUNTER 2024-07-30 06:12 | Inpatient (IN) | payer MEDICAID, SELFPAY ==
[2024-03-19 14:44] VITALS: BP 145/88
[2024-03-19 14:46] VITALS: BMI 21.7
[2024-07-30] VITALS (91 sets, daily range): BP systolic 124–152; BP diastolic 78–110; PULSE 79–121; RESP 0–36; TEMP 35.7–36.8; O2SAT 93–99; BMI 22.4
--- NOTE | 2024-07-30 06:27 | ECG_ITS ---
[facility] 2024-[facility]30 Pat Name: Navarro Ring Department: Room: Gender: Male Supervisor Contact Lens: : 1985 Requested By: Andreas Brown Order Number: [id number] Maninder MD: Pedrito Bourgeois M.D. Measurements Intervals [place] Rate: 109 P: 66 MO: 179 QRS: -31 QRSD: 101 T: 62 QT: 350 QTc: 473 Interpretive Statements SINUS TACHYCARDIA LEFT ATRIAL ENLARGEMENT [-0.15mV P-WAVE IN V1/V2] LEFT AXIS DEVIATION [QRS AXIS < -30] POSSIBLE RIGHT VENTRICULAR CONDUCTION DELAY [RSR (QR) IN V1/V2] Compared to ECG 03/16/2021 01:18:17 Left-axis deviation now present Sinus rhythm no longer present Left anterior fascicular block no longer present Electronically Signed On 07-30-2024 09:10:48 CDT by Pedrito Bourgeois M.D. [email or web address]
--- NOTE | 2024-07-30 06:28 | XRR_ITS ---
PROCEDURE INFORMATION: Exam: XR Chest Exam date and time: 07/30/2024 7:02 AM Age: 39 years old Clinical indication: Cough and dyspnea; Additional info: Dyspnea/cough TECHNIQUE: Imaging protocol: Radiologic exam of the chest. Views: 1 view. COMPARISON: CT angio chest PE protcl [id number] 03/16/2021 3:16 AM FINDINGS: Lungs: Unremarkable. No consolidation. Pleural spaces: Unremarkable. No pleural effusion. No pneumothorax. Heart/Mediastinum: Unremarkable. No cardiomegaly. Bones/joints: Unremarkable. XR/XR chest 1V portable [id number] IMPRESSION: No acute findings.
[2024-07-30 06:41] LABS: Basophils % 0.3 %; Hematocrit 45.8 % (37-53); Lymphocytes # 1.2 10^3/uL (0.8-4.8); Lymphocytes % 11.6 %; Mean Corpuscular HGB Conc 34.7 g/dL (30-55); Mean Corpuscular Hemoglobin 33.3 pg (27-33); Mean Platelet Volume 9.1 fL (7.4-10.4); Monocytes # 0.6 10^3/uL (0.2-0.9); Monocytes % 5.8 %; Neutrophils # 8.58 10^3/uL (1.8-7.7); Neutrophils % 81.9 %; Nucleated Red Blood Cells % 0 %; Platelet Count 224 10^3/cmm (157-399); Red Blood Count 4.77 10^6/uL (3.85-5.65); Red Cell Distribution Width 13.4 % (12.1-15.1); White Blood Count 10.47 10^3/uL (3.29-11.43)
[2024-07-30] MEDS: sodium chloride 0.9% 1,000 ML 999 ML IV (06:41)
[2024-07-30 06:57] LABS: Alanine Aminotransferase 16 U/L (0-41); Albumin Level 4.3 g/dL (3.5-5.2); Alkaline Phosphatase 84 U/L (40-130); Anion Gap 17.6 (5-19); Aspartate Amino Transferase 18 U/L (0-40); Blood Urea Nitrogen 6 mg/dL (6-20); Calcium 8.8 mg/dL (8.5-10.5); Carbon Dioxide 23 mmol/L (22-29); Chloride 103 mmol/L (98-107); Creatinine Clr Calc Pharmacy 132.8076; Globulin 2.7 g/dL (1.3-4.6); Glomerular Filtration Rate 107.1 mL/min (90-130); Glucose 118 mg/dL (65-115); Osmolality Calculated 289 mOsm/kg (285-295); Potassium 3.6 mmol/L (3.5-5.1); Sodium 140 mmol/L (136-145); Total Bilirubin 0.3 mg/dL (0.15-1.2)
[2024-07-30 06:58] LABS: Acetaminophen < 5.0 ug/mL (10-30); Alcohol Level < 10 mg/dL (0-10); Salicylate < 0.3 mg/dL (3-10)
[2024-07-30 07:06] LABS: ABG PCO2 38.9 mmHg (35-45); ABG PH Result 7.39 (7.35-7.45); Alveolar-Arterial Oxygen Gradi 1.4 mmHg (5-10); Arterial Blood Gas Hematocrit 45.3 % (42-52); Base Excess ABG -1.2 mmol/L (-2.0-2.0); Blood Gas Allen Test Pos; Blood Gas Operator Identificat WALCI; Blood Gas Sample Site Radial, left; Blood Gas Sample Type Arterial; Carboxyhemoglobin 2.7 %THgb (0.4-20.1); HCO3 ABG 23.6 mmol/L (22-26); HGB O2 Sat 93.6 % (95-100); Ionized Calcium Level - ABG 1.1 mmol/L (1.1-1.4); Oxygen Device ROOM AIR; Oxygen Saturation ABG 97.2; PO2 ABG 89.4 mmHg (80.0-100.0); PO2 FiO2 Ratio Arterial Blood 425; Potassium Level - ABG 3.4 mmol/L (3.5-5.0); Total Hemoglobin 14.8 g/dL (14-18)
[2024-07-30] MEDS: labetalol 5 mg/mL SDV 20mL 10 MG IVP (07:24)
--- NOTE | 2024-07-30 07:43 | PC.NURSE ---
PATIENT CONTINUES TO ROTATE IN BED. PATIENT ENCOURAGED TO SIT STILL. PATIENT UNABLE TO DO SO.
--- NOTE | 2024-07-30 07:46 | W.ED.OVERDOS ---
HPI - Overdose General: Chief Complaint: Overdose Stated Complaint: overdose Time Seen by Provider: 07/30/24 06:27 History of Present Illness: 39-year-old male presents emergency room via EMS after intentionally ingesting fifteen 100 mg tablets of Clozaril. He told EMS he did so out of frustration. He never specifically mention suicidal ideation -he actually denied suicidal or homicidal ideation to EMS. He informed his mother who called 911. On arrival here he is sedate difficult to arouse cannot really answer questions well. Related Data Previous Rx's ?Medication ?Instructions ?Recorded citalopram 20 mg tablet (Celexa) 20 mg PO DAILY #30 tabs 01/20/24 clozapine 100 mg tablet 100 mg PO QAM #90 tabs 01/20/24 clozapine 50 mg tablet 50 mg PO BEDTIME #30 tabs 01/20/24 apixaban 2.5 mg tablet (Eliquis) See Rx Instructions .Route 04/13/24 .COMPLEX #30 tabs Allergies Allergy/AdvReac Type Severity Reaction Status Date / Time environmental Allergy Unknown Unknown Uncoded 07/30/24 10:00 Review of Systems General: Reports: ROS unobtainable due to mental status [facility] ED PFSH: Medical History (Updated 07/30/24 @ 09:44 by Hamilton Lemus MD) 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) DVT (deep venous thrombosis) Psychiatric care Chain smoker Other schizophrenia Social History (Updated 07/30/24 @ 09:56 by Hamilton Lemus MD) Smoking and tobacco/nicotine status: current every day tobacco/nicotine user cigarettes Packs smoked per day: 1 Years cigarettes smoked: 15 Quit status (tobacco/nicotine): not considering quitting Second hand smoke exposure: Yes Alcohol intake: current Substance/Drug Use: current Substance/Drug use type: Marijuana Physical Exam HENMT: COMMON NORMALS: normocephalic, atraumatic and hearing grossly normal bilaterally HEAD & SCALP: normocephalic and atraumatic Resp: COMMON NORMALS: normal respiratory effort, No retractions, No use of accessory muscles and clear to auscultation bilaterally AUSCULTATION: clear to auscultation bilaterally Cardio: COMMON NORMALS: regular rhythm and No murmurs present (Cardio) RATE: tachycardic RHYTHM: regular rhythm GI: COMMON NORMALS: Soft to palpation and No hepatosplenomegaly present AUSCULTATION: Yes normoactive bowel sounds PALPATION: Yes Soft to palpation, No Tenderness to palpation present (GI), No Guarding due to palpation present (GI) and Yes No hepatosplenomegaly present Extremity: COMMON NORMALS: normal to inspection, capillary refill normal, no clubbing, cyanosis or edema, no calf tenderness and no pedal edema Skin: COMMON NORMALS: no rashes or lesions noted GENERAL SKIN EXAM: no rashes or lesions noted Course Vital Signs: Vital signs: Vital Signs Temperature 98 F 07/30/24 11:15 Pulse Rate 85 07/30/24 12:00 Respiratory Rate 22 H 07/30/24 12:00 Blood Pressure 148/96 07/30/24 12:00 Pulse Oximetry 97 07/30/24 12:00 Oxygen Delivery Me thod Room Air 07/30/24 11:00 MDM - Overdose Medical Decision Making Patient has been very agitated at times combative. He is not able to be redirected. He is given several doses of Ativan placed in soft restraints for his own protection. He is improved now we will repeat a temperature and repeat EKG remove restraints as we are able. Recheck this EKG and temp no elevation of temps there is no prolonged QT noted on the EKG. Patient continues to be some somewhat sedate the Ativan has improved his disorientation. Admit to ICU. Patient is on 96-hour hold discussed with hospitalist Dr. Lemus will be the attending Dr. Robles will consult Medical Records I reviewed the patient's medical records. Lab Data I reviewed the patient's lab results. 07/30/24 06:32 07/30/24 06:32 Radiology Impressions Chest X-Ray 07/30/24 06:28 IMPRESSION: No acute findings. Laboratory Results WBC 10.47 10^3/uL (3.29-11.43) 07/30/24 06:32 RBC 4.77 10^6/uL (3.85-5.65) 07/30/24 06:32 Hgb 15.90 g/dL (11.27-16.99) 07/30/24 06:32 Hct 45.8 % (37-53) 07/30/24 06:32 MCV 96.0 fl (82-101) 07/30/24 06:32 MCH 33.3 pg (27-33) H 07/30/24 06:32 MCHC 34.7 g/dL (30-55) 07/30/24 06:32 RDW 13.4 % (12.1-15.1) 07/30/24 06:32 Plt Count 224 10^3/cmm (157-399) 07/30/24 06:32 MPV 9.1 fL (7.4-10.4) 07/30/24 06:32 Neut % (Auto) 81.9 % 07/30/24 06:32 Lymph % (Auto) 11.6 % 07/30/24 06:32 [place] % (Auto) 5.8 % 07/30/24 06:32 Eos % (Auto) 0.0 % 07/30/24 06:32 Baso % (Auto) 0.3 % 07/30/24 06:32 Neut # (Auto) 8.58 10^3/uL (1.8-7.7) H 07/30/24 06:32 Lymph # (Auto) 1.2 10^3/uL (0.8-4.8) 07/30/24 06:32 [place] # (Auto) 0.6 10^3/uL (0.2-0.9) 07/30/24 06:32 Eos # (Auto) 0.0 10^3/uL (0.0-0.8) 07/30/24 06:32 Baso # (Auto) 0.0 10^3/uL (0.0-0.1) 07/30/24 06:32 Nucleated RBC % (auto) 0 % 07/30/24 06: Nucleated RBCs # 0.0 /100WBC 07/30/24 06:32 PT 12.80 SECONDS (12.1-14.9) 07/30/24 06:32 INR 0.90 (0.8-1.2) 07/30/24 06:32 Specimen Type Arterial 07/30/24 06:55 Sample Site Radial, left 07/30/24 06:55 ABG pH 7.39 (7.35-7.45) 07/30/24 06:55 ABG pCO2 38.9 mmHg (35-45) 07/30/24 06:55 ABG pO2 89.4 mmHg (80.0-100.0) 07/30/24 06:55 ABG PO2/FiO2 Ratio 425 07/30/24 06:55 ABG HCO3 23.6 mmol/L (22-26) 07/30/24 06:55 ABG O2 Saturation 97.2 07/30/24 06:55 ABG Base Excess -1.2 mmol/L (-2.0-2.0) 07/30/24 06:55 Juan Test Pos 07/30/24 06:55 A-a O2 Gradient 1.4 mmHg (5-10) L 07/30/24 06:55 Hematocrit 45.3 % (42-52) 07/30/24 06:55 Hgb O2 Saturation 93.6 % (95-100) L 07/30/24 06:55 Carboxyhemoglobin 2.7 %THgb (0.4-20.1) 07/30/24 06:55 Methemoglobin 1.0 % (0.4-1.5) 07/30/24 06:55 Total Hemoglobin 14.8 g/dL (14-18) 07/30/24 06:55 Sodium 140.0 mmol/L (131-143) 07/30/24 06:55 Potassium 3.4 mmol/L (3.5-5.0) L 07/30/24 06:55 Glucose 119.0 mg/dL (70-115) H 07/30/24 06:55 Ionized Calcium 1.1 mmol/L (1.1-1.4) 07/30/24 06:55 O2 Delivery Device Room air 07/30/24 06:55 FiO2 21.0 % 07/30/24 06:55 Lubrication Equipment Servicer ID [place] 07/30/24 06:55 Sodium 140 mmol/L (136-145) 07/30/24 06:32 Potassium 3.6 mmol/L (3.5-5.1) 07/30/24 06:32 Chloride 103 mmol/L (98-107) 07/30/24 06:32 Carbon Dioxide 23 mmol/L (22-29) 07/30/24 06:32 Anion Gap 17.6 (5-19) 07/30/24 06:32 BUN 6 mg/dL (6-20) 07/30/24 06:32 Creatinine 0.8 mg/dL (0.7-1.2) 07/30/24 06:32 GFR Calculation 107.1 mL/min (90-130) 07/30/24 06:32 Glucose 118 mg/dL (65-115) H 07/30/24 06:32 Calculated Osmolality 289 mOsm/kg (285-295) 07/30/24 06:32 Calcium 8.8 mg/dL (8.5-10.5) 07/30/24 06:32 Total Bilirubin 0.3 mg/dL (0.15-1.2) 07/30/24 06:32 AST 18 U/L (0-40) 07/30/24 06:32 ALT 16 U/L (0-41) 07/30/24 06:32 Alkaline Phosphatase 84 U/L (40-130) 07/30/24 06:32 Creatine Kinase 240 U/L (39-308) 07/30/24 06:32 Total Protein 7.0 g/dL (6.6-8.7) 07/30/24 06:32 Albumin 4.3 g/dL (3.5-5.2) 07/30/24 06:32 Globulin 2.7 g/dL (1.3-4.6) 07/30/24 06:32 Urine Color Yellow (Yellow) 07/30/24 07:02 Urine Appearance Clear (CLEAR) 07/30/24 07:02 Urine pH 7 (5-7) 07/30/24 07:02 Ur Specific [place] 1.005 (1.005-1.030) 07/30/24 07:02 Urine Protein Neg (Negative) 07/30/24 07:02 Urine Glucose (UA) 1+ (Normal) H 07/30/24 07:02 Urine Ketones Negative (Negative) 07/30/24 07:02 Urine Blood Neg (Negative) 07/30/24 07:02 Urine Nitrate Negative (Negative) 07/30/24 07:02 Urine Bilirubin Neg (Negative) 07/30/24 07:02 Urine Urobilinogen Neg mg/dL (Negative) 07/30/24 07:02 Ur Leukocyte Esterase 1+ (Negative) H 07/30/24 07:02 Urine RBC 0-2 /hpf (0-2) 07/30/24 07:02 Urine WBC 6-10 /hpf (0-5) 07/30/24 07:02 Ur Squamous Epith Cells 0-5 /hpf (0-5) 07/30/24 07:02 Amorphous Sediment Not Reportable 07/30/24 07:02 Urine Bacteria None seen /hpf (NONE) 07/30/24 07:02 Hyaline Casts 0-4 /lpf H 07/30/24 07:02 Salicylates < 0.3 mg/dL (3-10) L 07/30/24 06:32 Urine Opiates Screen Negative ng/mL (Negative) 07/30/24 07:02 Acetaminophen < 5.0 ug/mL (10-30) L 07/30/24 06:32 Ur Barbiturates Screen Negative ng/mL (Negative) 07/30/24 07:02 Ur Phencyclidine Scrn Negative ng/mL (Negative) 07/30/24 07:02 Ur Amphetamines Screen Positive ng/mL (Negative) H 07/30/24 07:02 U Benzodiazepines Scrn Negative ng/mL (Negative) 07/30/24 07:02 Urine Cocaine Screen Negative ng/mL (Negative) 07/30/24 07:02 U Marijuana (THC) Screen Negative ng/mL (Negative) 07/30/24 07:02 Ethyl Alcohol < 10 mg/dL (0-10) 07/30/24 06:32 All radiology interpretation(s) finalized by discharge Discharge Plan Discharge Patient Disposition: Admitted As Inpatient Admit Provider: Hamilton Lemus Clinical Impression: Drug overdose, Suicide attempt by adequate means, Schizophrenia Condition: Stable Coding Level of Care Code ED [employer] for Trey Hyman
[2024-07-30 07:47] LABS: Amphetamines Screen Urine Positive (Negative); Barbiturates Screen Urine Negative (Negative); Benzodiazepines Screen Urine Negative (Negative); Cocaine Screen Urine Negative (Negative); Opiate Screen Urine Negative (Negative); PCP Screen Urine Negative (Negative); THC Screen Urine Negative (Negative)
[2024-07-30 07:51] LABS: Bacteria Urine None Seen /hpf; Hyaline Casts Urine 0-4 /lpf; RBC Urine 0-2 /hpf (0-2); Squamous Epithelial Cell Urine 0-5 /hpf (0-5)
[2024-07-30 07:53] LABS: Urine Color Yellow (Yellow)
--- NOTE | 2024-07-30 07:53 | PC.NURSE ---
PATIENT CONTINUES TO TRY AND AMBULATE AND REMOVE LINES. PATIENT IS UNDER THE INFLUENCE AND UNSAFE TO BE STANDING OR WALKING. PATIENT ALSO NEEDS CONTINUOUS MONITORING DUE TO OVERDOSE. PATIENT RIGHT ARM IN SOFT RESTRAINT DUE TO CONSTANT MOVING. PATIENT IN ROOM 10 IN SIGHT OF NURSES STATION.PATENT AIRWAY, UNLABORED RESPIRATIONS, AND APPROPRIATE COLOR.
[2024-07-30 08:00] LABS: Add Urine Microscopic? YES; Bilirubin Urine Neg (Negative); Blood Urine Neg (Negative); Glucose Urine UA 1+ (Normal); Ketones Urine Negative (Negative); Leukocyte Esterase Urine 1+ (Negative); Nitrate Urine Negative (Negative); Protein Urine Neg (Negative); Specific Gravity, Urine 1.005 (1.005-1.030); Urine Appearance Clear (CLEAR); Urobilinogen Urine Neg (Negative); pH Urine 7 (5-7)
[2024-07-30 08:01] LABS: Add Urine Culture? No
--- NOTE | 2024-07-30 08:01 | PC.NURSE ---
PATIENT NOW IN BILATERAL ARM RESTRAINTS DUE TO STILL GETTING UP AND AMBULATING.
[2024-07-30] MEDS: LORazepam 1 MG/0.5 ML injection 2 MG IVP ×4 (08:34→15:55)
--- NOTE | 2024-07-30 09:27 | PC.NURSE ---
96 hr rights reviewed with patient @0745 with assistance of [facility] philanthropy officer [place] All education reviewed with patient at this time. Pt verbalized no questions regarding hold to HS. Pt did exhibit signs of unsafe behavior by continuously removing leads and pulling at IV's during time rights were being served. HS advised that pt needed these leads as to monitor him medically as he was still considered to be a need for medical placement into our ICU. HS explained that he needed to leave these cables alone. Pt verbalized understanding but still at times thrashed around in bed. Nurse assigned to his care was in eye sight of patient and aware of conversation and education HS had re-enforced. Pt copy was left @bedside with pt. No further needs at this time
--- NOTE | 2024-07-30 09:35 | ECG_ITS ---
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 Measurements Intervals [place] Rate: 92 P: 69 MS: 196 QRS: -19 QRSD: 105 T: 73 QT: 376 QTc: 467 Interpretive Statements SINUS RHYTHM POSSIBLE LEFT ATRIAL ENLARGEMENT [-0.1mV P-WAVE IN V1/V2] INCOMPLETE RIGHT BUNDLE BRANCH BLOCK [90+ ms QRS DURATION, TERMINAL R IN V1/V2, 40+ ms S IN I/aVL/V4/V5/V6] Compared to ECG 07/30/2024 06:27:24 Incomplete right bundle-branch block now present Sinus tachycardia no longer present Left-axis deviation no longer present Electronically Signed On 07-30-2024 10:15:13 CDT by Pedrito Bourgeois M.D. [email or web address] [id number]
--- NOTE | 2024-07-30 09:42 | P.HP_ITS ---
Providers/Chief Complaint 2 Primary Care Provider: Robert Michel DO Chief Complaint: overdose History of Present Illness 39-year-old gentleman with history of AIDP during COVID pandemic, subsequent loss of mobility, temporary wheelchair dependence, DVT, subsequently recovered but incompletely sensory and motor functions, as well as history of smoking, daily EtOH intake, recently also under stress after having her property from his grandmother and having difficult time managing it, was brought in by EMS after overdose with medication at home. His mother called EMS after her younger son found Mr. Ring asking for help, feeling unwell. He was somnolent, although his medication does make him somnolent as is. After some discussion he admitted to have overdosed on medication, it appears with 15 tablets of [address] to the ER and in ER confused, restless, at times combative threatening to hit staff, in ER requiring restraints. Poison control was contacted. Psychiatry was consulted. He was placed under 96-hour hold. His mother states he is not normally a violent person. She is aware of him smoking marijuana occasionally and additionally to EtOH and smoking, but denies knowledge of other substance use. Review of Systems 2 General: Reports: ROS unobtainable due to mental status Medications/Allergies Home Medications ?Medication ?Instructions ?Recorded ?Confirmed ?Last Taken ?Type citalopram 20 mg tablet (Celexa) 20 mg PO DAILY #30 ta bs 01/20/24 07/30/24 Unknown Rx clozapine 100 mg tablet 100 mg PO QAM #90 tabs 01/1907/30/24 07/30/24 Rx clozapine 50 mg tablet 50 mg PO BEDTIME #30 tabs 07/30/24 Unknown Rx apixaban 2.5 mg tablet (Eliquis) See Rx Instructions . 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) DVT (deep venous thrombosis) Psychiatric care Chain smoker Other schizophrenia Social History (Updated 07/30/24 @ 09:56 by Hamilton Lemus MD) Smoking and tobacco/nicotine status: current every day tobacco/nicotine user cigarettes Packs smoked per day: 1 Years cigarettes smoked: 15 Quit status (tobacco/nicotine): not considering quitting Second hand smoke exposure: Yes Alcohol intake: current Substance/Drug Use: current Substance/Drug use type: Marijuana Vitals/I&O/Wt Last Vital Signs Temp 96.2 F L 07/30/24 09:39 Pulse 121 H 07/30/24 08:35 Resp 16 07/30/24 08:35 BP 129/110 07/30/24 06:31 Pulse Ox 96 07/30/24 08:35 O2 Del Method Room Air 07/30/24 08:35 07/29/24 07/30/24 07/30/24 22:59 06:59 14:59 Intake Total 0 / 0 1000 / 1000 Balance 0 / 0 1000 / 1000 Weight last 48 hrs Weight 74.843 kg Physical Exam 2 Const: GENERAL APPEARANCE: not cooperative ORIENTATION/CONSCIOUSNESS: Yes confused and Yes lethargic OTHER: Moving around in bed, BSR of the legs, moving his head [id number]. Intermittently mumbling. HENMT: COMMON NORMALS: oropharynx normal Neck/C-Spine: COMMON NORMALS: no JVD Resp: COMMON NORMALS: normal respiratory effort and clear to auscultation bilaterally AUSCULTATION: clear to auscultation bilaterally Cardio: COMMON NORMALS: no JVD, regular rhythm, S1 normal heart sound present, S2 normal heart sound present and No murmurs present (Cardio) RHYTHM: regular rhythm HEART SOUNDS: S1 normal heart sound present and S2 normal heart sound present GI: COMMON NORMALS: Normal to inspection, nondistended, normoactive bowel sounds present, Soft to palpation and non-tender PALPATION: Yes Soft to palpation Extremity: COMMON NORMALS: no joint enlargement and no pedal edema Neuro: COMMON NORMALS: moves all extremities SENSORIUM/ORIENTATION: Yes alert OTHER: Asterixis Skin: COMMON NORMALS: no rashes or lesions noted GENERAL SKIN EXAM: no rashes or lesions noted Data 07/30/24 06:32 07/30/24 06:32 A&P Assessment and plan (1) Drug overdose: Medication overdose with prescribed medication, 15 tablets of 100 mg clozapine, with recent life stressors. Reviewed vitals, CBC, INR, ABG, CMP, UA, UDS, chest x-ray, EKG, on my interpretation no QTc prolongation, incomplete RBBB, questionable area of high takeoff, less likely ST elevation in V3, V4, discussing with cardiology. Pending official read. With tachycardia, hypertension. Monitor on telemetry. Monitor vitals. Will give labetalol as needed. Poison control has been contacted. Monitor for QTc prolongation, will reassess EKG. Monitor tachycardia, hypertension, at risk of seizure, seizure precautions, for now NPO. Has been requiring restraints. Repeat EKG requested. Reviewed ER provider note, discussed with ER provider. Possible concomitant severe alcohol withdrawal, he has mother states he does drink alcohol daily, a pint of [place], but has run out of money and could not purchase alcohol since a couple of days. Additionally testing positive for amphetamine, possible vitamin intoxication, his mother is not aware of other substances apart from marijuana smoking and alcohol. Requested confirmatory test. Psychiatry is consulted, will need further assessment and admission once he is able to communicate. He has been placed under 96-hour hold. Admission to intensive care unit with close monitoring, elevated risk of severe and/or life-threatening events complicating medication overdose, possible alcohol withdrawal, possible amphetamine intoxication. Continue to monitor vitals, repeat blood counts, chemistry. Requested CK, reviewed, normal. Repeat in the morning. Plan Acute metabolic encephalopathy: Confused, restless, with asterixis, earlier threatening to hit staff. Required chemical sedation, one-to-one sitter and restraints. Secondary to medication overdose, possible [place], as well as possibility of amphetamine intoxication. Additional assessment management as above. Depression, suicidal attempt: Pending psychiatric assessment and admission. Psychiatry is consulted. Under 96-hour hold. Alcohol use disorder with possible alcohol withdrawal: Encourage cessation. Consider rehabilitation options with case management was able to communicate. Treat withdrawal, benzodiazepines as needed per [facility] protocol. Thiamine, folic acid, multivitamin. Monitor telemetry with risk of arrhythmia. Seizure precautions. Smoking: Encourage cessation Marijuana use Possible vitamin use PDMP PDMP Reviewed: Not Reviewed Attestations 2 Medical Necessity Statement*: Admission over 2 midnights anticipated for assessment and management of prescribed medication overdose, with tachycardia, hypertension, acute encephalopathy Coding Level of Care Code Critical Care >/= 30 minutes Critical care time (in minutes): 35 The high probability of a clinically significant, sudden or life threatening deterioration, as referenced in this documentation, required my full and direct attention, intervention and personal management. The critical care time shown is in addition to time spent performing any reported separately billable procedures and includes the following: [x] Data and vital sign review and interpretation [x ] Patient assessment, examination and intervention [x] Medication orders and management [x] Patient/Family updates as able [x] Care Coordination and Documentation. Diagnoses Drug overdose T50.900D
[2024-07-30 09:52] LABS: Creatine Phosphokinase 240 U/L (39-308)
--- NOTE | 2024-07-30 09:52 | PC.NURSE ---
PATIENT CONTINUES TO FIGHT AT RESTRAINTS AND COME OUT OF THE BED. PATIENT REMAINS IN 4 POINT SOFT RESTRAINTS.
--- NOTE | 2024-07-30 11:06 | PC.NURSE ---
PATIENT LINENS CHANGED AND PROVIDED NEW CLOTHING DUE TO URINE SOAKED SHEETS. PATIENT REMAINS SEDATED AT THIS TIME.
[2024-07-30] MEDS: thiamine 100 mg/mL 2mL SDV IM (11:40)
--- NOTE | 2024-07-30 16:01 | PC.NURSE ---
attempt to do ekg iv ativan given but when touch pt becomes combative and refused to stay still , unable to give information on imunizations or social drivers at this time
--- NOTE | 2024-07-30 16:26 | ECG_ITS ---
[employer] Test Date: 2024-07-30 Pat Name: Navarro Ring Department: Room: ICU02 Gender: Male Qa Manager: : 1985 Requested By: Hamilton Lemus Order Number: [id number] Maninder MD: Jovany Arredondo M.D. Measurements Intervals [place] Rate: 97 P: 71 [place]: 183 QRS: -27 QRSD: 105 T: 79 QT: 390 QTc: 496 Interpretive Statements SINUS RHYTHM LEFT ATRIAL ENLARGEMENT [-0.15mV P-WAVE IN V1/V2] BORDERLINE LEFT AXIS DEVIATION [QRS AXIS < -20] INCOMPLETE RIGHT BUNDLE BRANCH BLOCK [90+ ms QRS DURATION, TERMINAL R IN V1/V2, 40+ ms S IN I/aVL/V4/V5/V6] WARNING: DATA QUALITY MAY AFFECT INTERPRETATION Compared to ECG 07/30/2024 09:35:54 No significant changes Baseline artifacts, need to repeat Electronically Signed On 08-01-2024 23:44:14 CDT by Jovany Arredondo M.D. [email or web address]
--- NOTE | 2024-07-30 16:29 | PC.NURSE ---
ekg done even though pt not holding still
[2024-07-31] VITALS (192 sets, daily range): BP systolic 112–154; BP diastolic 75–102; PULSE 73–103; RESP 0–32; TEMP 36.5–36.8; O2SAT 89–100; BMI 22.1
[2024-07-31] MEDS: LORazepam 1 MG/0.5 ML injection 2 MG IVP (00:29)
[2024-07-31 03:50] LABS: Basophils % 0.4 %; Hematocrit 48.4 % (37-53); Lymphocytes # 1.8 10^3/uL (0.8-4.8); Lymphocytes % 18.6 %; Mean Corpuscular HGB Conc 34.3 g/dL (30-55); Mean Corpuscular Hemoglobin 33.3 pg (27-33); Mean Corpuscular Volume 97.2 fl (82-101); Mean Platelet Volume 9.2 fL (7.4-10.4); Monocytes # 0.7 10^3/uL (0.2-0.9); Monocytes % 7.2 %; Neutrophils # 7.01 10^3/uL (1.8-7.7); Neutrophils % 73.5 %; Nucleated Red Blood Cells % 0 %; Platelet Count 212 10^3/cmm (157-399); Red Blood Count 4.98 10^6/uL (3.85-5.65); Red Cell Distribution Width 13.7 % (12.1-15.1); White Blood Count 9.55 10^3/uL (3.29-11.43)
[2024-07-31 04:24] LABS: Alanine Aminotransferase 15 U/L (0-41); Albumin Level 4.2 g/dL (3.5-5.2); Alkaline Phosphatase 87 U/L (40-130); Anion Gap 17.3 (5-19); Aspartate Amino Transferase 16 U/L (0-40); Blood Urea Nitrogen 5 mg/dL (6-20); Carbon Dioxide 24 mmol/L (22-29); Chloride 106 mmol/L (98-107); Creatinine Clr Calc Pharmacy 151.7802; Globulin 2.8 g/dL (1.3-4.6); Glomerular Filtration Rate 124.9 mL/min (90-130); Glucose 95 mg/dL (65-115); Osmolality Calculated 295 mOsm/kg (285-295); Potassium 3.3 mmol/L (3.5-5.1); Sodium 144 mmol/L (136-145); Total Bilirubin 0.6 mg/dL (0.15-1.2)
[2024-07-31 04:25] LABS: Creatine Phosphokinase 167 U/L (39-308)
--- NOTE | 2024-07-31 09:27 | PC.NURSE ---
Dr. Novak rounded on patient and gave verbal orders for a clear liquid diet.
--- NOTE | 2024-07-31 14:40 | PM.PN ---
Subjective Subjective: He is having vague recollection of last night, reports being restrained, turning and pulling off telemetry monitors, does not have recollection of the parts where he was more confused. He does recall taking excess of his medication in attempt to overdose to harm himself. Confirms that he has been going through a stressful time. he states that he mostly drinks alcohol socially, although does admit to daily drinking but does not feel that it is a problem, and does not feel that he needs rehabilitation. Discussing risks with him, verbalizes understanding risks including chronic risks including liver cirrhosis, dementia, cancer. Admits to intermittent substance use with methamphetamine, although denies ever injecting it. He states that he s snorts it. He understands the risk of heart attack and stroke with methamphetamine use. Understands to avoid, as well as risk in combination with alcohol which she states has been using to destress. Vitals/I&O/Wt Last Vital Signs Temp 98.2 F 07/31/24 04:40 Pulse 90 07/31/24 12:20 Resp 10 L 07/31/24 12:20 BP 135/94 07/31/24 12:20 Pulse Ox 95 07/31/24 12:20 O2 Del Method Room Air 07/30/24 21:17 07/30/24 07/31/24 07/31/24 22:59 06:59 14:59 Intake Total 0 / 0 Output Total 400 / 400 Balance -400 / 600 0 / 0 Weight last 48 hrs Weight 74 kg Weight 74.843 kg Weight 74.843 kg Physical Exam Const: COMMON NORMALS: alert GENERAL APPEARANCE: cooperative OTHER: She is sleeping, wakes up to voice. With standby assist was able to get up and ambulate to the restroom and back. HENMT: COMMON NORMALS: oropharynx normal Neck/C-Spine: COMMON NORMALS: no JVD Resp: COMMON NORMALS: normal respiratory effort and clear to auscultation bilaterally AUSCULTATION: clear to auscultation bilaterally Cardio: COMMON NORMALS: no JVD, regular rhythm, S1 normal heart sound present, S2 normal heart sound present and No murmurs present (Cardio) RHYTHM: regular rhythm HEART SOUNDS: S1 normal heart sound present and S2 normal heart sound present GI: COMMON NORMALS: Normal to inspection, nondistended, normoactive bowel sounds present, Soft to palpation and non-tender PALPATION: Yes Soft to palpation Extremity: COMMON NORMALS: no joint enlargement and no pedal edema Neuro: COMMON NORMALS: moves all extremities SENSORIUM/ORIENTATION: Yes alert OTHER: Asterixis resolved Skin: COMMON NORMALS: no rashes or lesions noted GENERAL SKIN EXAM: no rashes or lesions noted Data 07/31/24 03:40 07/31/24 03:40 A&P Assessment and plan (1) Drug overdose: Medication overdose with prescribed medication, 15 tablets of 100 mg clozapine, with recent life stressors. Reviewed vitals, CBC, INR, ABG, CMP, UA, UDS, chest x-ray, EKG, on my interpretation no QTc prolongation, incomplete RBBB, questionable area of high takeoff, less likely ST elevation in V3, V4, discussing with cardiology. Pending official read. With tachycardia, hypertension. Monitor on telemetry. Monitor vitals. Will give labetalol as needed. With significant cephalopathy, lethargic this morning, but gradually waking up. Waking up well by the afternoon. Resolved acute encephalopathy resolved. He is able to get up and ambulate. Discussed with nursing, psychiatrist. Case management. Plan is to further admit for assessment management at neuropsychiatric unit, however, no bed open, transfer to medical surgical floor with plan for admission and continued care on neuropsychiatric unit in the morning for further assessment management of depression, suicidal attempt, polysubstance use disorder. Hold off resuming any of the home medications per discussion. He is under 96-hour hold. Continue to monitor vitals, repeat blood counts, chemistry. Requested CK, reviewed, normal. Repeat in the morning. Plan Acute metabolic encephalopathy: Now resolved. Confused, restless, with asterixis, earlier threatening to hit staff. Required chemical sedation, one-to-one sitter and restraints. Secondary to medication overdose, alcohol withdrawal, as well as methamphetamine intoxication. Depression, suicidal attempt: Pending psychiatric assessment and admission. Psychiatry is consulted. Under 96-hour hold. Alcohol use disorder with possible alcohol withdrawal: Discussed alcohol use with him. As per outside sources he drinks daily close to a liter of whiskey. It appears that he had stopped 2 to 3 days ago. Per discussion with him he states he mostly drinks socially, although does admit to daily drinking. He does not feel that this is a problem currently to warrant rehabilitation. Discussed with him risks of continued alcohol consumption, recommended discontinuation of alcohol consumption. Offered for outpatient rehabilitation options to be provided, although he declines at this time. Had been treated for component of withdrawal, benzodiazepines as needed per [facility] protocol. Monitor for further withdrawal. Continue thiamine, folic acid, multivitamin. Smoking: Encourage cessation Marijuana use Methamphetamine use: By snorting. Denies any injection use. Discussed with him risk of methamphetamine use, he acknowledged understanding, including risk of stroke, heart attack, other severe and or life-threatening complications. He states he has tried it 3 times so far. He does not feel that it is a advanced problem for him to need rehabilitation. Offered him options to be provided by employment evaluator/case manager for outpatient rehabilitation, he declines at this time. PDMP PDMP Reviewed: Not Reviewed Attestations Medical Necessity Statement*: Continue admission for assessment and management following medication overdose, suicide attempt, depression, substance use. Diagnoses Drug overdose T50.901A
[2024-07-31] MEDS: potassium chloride ER 20 mEq Tablet PO (15:18)
--- NOTE | 2024-07-31 16:11 | PC.NURSE ---
This nurse took report from DEMETRIUS Rojas at 1610.
--- NOTE | 2024-07-31 16:26 | PC.NURSE ---
Report called to Odilon on [employer].
--- NOTE | 2024-07-31 16:34 | PC.NURSE ---
This nurse assumed care of pt at this time.
--- NOTE | 2024-07-31 18:34 | W.PM.NPUH&PS ---
Providers/Chief Complaint Admitting Physician: Hamilton Lemus Primary Care Provider: Robert Michel DO Chief Complaint: overdose HPI NPU History of Present Illness Navarro Ring is a 39 year old male recently discharged from the neuropsychiatric unit approximately 2-1/2 months ago who presented to the emergency department after admitting to overdose on 15 tablets of 100 mg of Clozaril. The patient had appeared confused and combative and was placed in restraints and ultimately placed on a 96-hour hold. He had spent 1 night in the intensive care unit and was seen today on the medical floor awaiting bed availability on the neuropsychiatric unit. The patient had reported that he had been stressed by his mother and girlfriend and stated that he had been tired of being told what to do. He reports that he often struggles with managing his stress at home stating that he had felt that his girlfriend and mother had unusually high expectations of him and he states that he had been extremely stressed out and decided to take the pills. He had reported that he is not currently suicidal. He denied any feelings of hopelessness or worthlessness. The patient had reported that he becomes depressed from time to time. He had continued to report alcohol use but minimized the significance of his use. He had also acknowledged intermittent use of methamphetamine but reported that he was not addicted to this. The patient's urine drug screen was positive for amphetamines on admission. He had reported no substantiative changes in his current situation with no changes in stressors since his last hospitalization 2 and half months ago. He had denied any paranoia, or auditory or visual hallucinations. He had reported no change in overall motivation. He had reported compliance with his current medication regimen. Patient had admitted to a significant amount of consumption of alcohol on a daily basis with no reports of alcohol related withdrawal symptoms. He had reported drinking approximately a pint of alcohol a day and reported last use of alcohol 2 to 3 days prior to admission. Current medications: Celexa 20 mg daily, Clozaril 50 mg in the morning and 100 mg at night, Eliquis Excerpt from NPU Discharge Summary from 05/21/24 Discharge Diagnosis (1) Alcohol use disorder, severe, dependence: Status: Acute (2) Schizophrenia: Status: Acute (3) Cannabis use disorder: Status: Acute (4) Hypertension: Status: Acute (5) Chain smoker: Status: Acute Reason for Visit SI Brief History: History of Present Illness Navarro Ring is a 39 year old male who presented to the emergency department with the following report: Chief Complaint: Psychiatric Symptoms Stated Complaint: SI Time Seen by Provider: 05/20/24 21:11 History of Present Illness: 39-year-old male patient with a history of schizophrenia and 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 He presents with worsening hallucinations, including visual, auditory and olfactory. He states he stopped taking his medicine a few days ago. He has been drinking alcohol instead. He has had up to 1 L of whiskey over the last 48 hours or so he says. He is currently not homicidal. He is currently not suicidal. He has had suicidal thoughts previously today though. He does not have a plan. He is here because he is seeking help with his psychiatric crisis . He was admitted to the neuropsychiatric unit for definitive treatment of those issues. He is known to [facility] through inpatient psychiatric services about 13 years ago and outpatient services mostly from that hospitalization forward. He presented with a UDS positive for amphetamines and cannabis as well as a blood alcohol of 228. He presented today reporting: Chief complaint Intoxication leading to hospitalization after family concern. History of the present complaint The patient reports a history of heavy alcohol use, which led to the current hospitalization. The patient became heavily intoxicated, prompting their mother to call for an ambulance. The patient has been drinking daily for years, consuming approximately 375 milliliters of Southern [employer], equating to about 8 1/2 shots per day. The patient started drinking alcohol in April 2002, during their last semester of high school, and the consumption has progressively increased over time. The patient expresses a desire to stop drinking and acknowledges the need to move on from alcohol use. The patient has a long-standing history of mental health issues, including a diagnosis of schizophrenia prior to 2012, which was initially labeled as stress-induced. The patient experienced a psychotic break in 2007 while in graduate school, studying mathematics. Symptoms at that time included disorganized thoughts, visual hallucinations, and auditory hallucinations. The patient has been on various antipsychotic medications, including Clozapine, which has helped avoid hospitalizations since 2011, except for one in 2019. The patient has also been on citalopram and Eliquis but stopped taking these medications four to five days before the current encounter. The patient reports a history of depression, including feelings of hopelessness and worthlessness. The patient attempted suicide in 2019 after discontinuing medication for about a month. This period coincided with a significant personal stressor: the patient's grandmother, who had been a lifelong support, suffered a stroke in March 2019. The patient was responsible for her care until she was moved to a detention, which the patient found very stressful and felt like a personal failure. The patient describes themselves as socially withdrawn and experiences anxiety, particularly in social situations. The patient reports feeling like an imposter in various aspects of life, contributing to their anxiety. The patient denies current suicidal ideation but acknowledges past experiences of severe depression and a suicide attempt. The patient has a family history of mental health issues, including depression, anxiety, schizophrenia, bipolar disorder, ADHD, autism, and PTSD. The patient's uncle, a [place] , has PTSD. The patient also mentions a possible mental illness in a paternal aunt, though details are unclear. The patient has been smoking cigarettes since 2004, consuming about a pack a day. The patient occasionally uses marijuana, which began in June 2002, but reports that it affects their memory of dreams. The patient denies using other drugs such as methamphetamine, opiates, or ecstasy and has never attended rehab or received drug and alcohol treatment. The patient has no history of legal issues related to substance use. The patient grew up in a challenging environment, with their mother being an alcoholic during their childhood. The patient lived with their grandparents from a young age, around 7 years old, due to their mother's alcoholism. The patient has a younger half-brother and a half-sister on their father's side, whom they have never met. The patient has never been and has no confirmed biological children, though there is a possibility of having a child from a past relationship. The patient is currently on disability and lives on property owned by their grandmother's trust. Mental health history Diagnosed with schizophrenia prior to 2012, initially labeled as stress-induced. Experienced a psychotic break in 2007 while in graduate school, studying mathematics, with symptoms including disorganized thoughts, visual and auditory hallucinations. Hospitalized in 2011 and 2019. Attempted suicide in 2019 after stopping medication for an extended period, coinciding with a personal crisis involving the care of his grandmother. Has been under psychiatric care for at least 13 years and has been on various medications, including Clozapine, citalopram, and previously Haldol. Reports feelings of depression, imposter syndrome, and social withdrawal. No current suicidal ideation. Family history includes mental illness on both maternal and paternal sides, with an uncle having PTSD. Social history Lives on grandmother's trust property. Has a history of alcohol use starting in April 2002, with daily consumption until hospitalization, typically 375 milliliters of [place]fort. Smokes about a pack of cigarettes daily since 2004. Occasional cannabis use since June 2002. No history of drug and alcohol treatment or legal issues related to substance use. Lives with numerous pets, including approximately 20 beagles and 6 other pets. Currently on disability. 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 No history of marriage or biological children, though there is a potential child from a past relationship. Identifies as heterosexual. Has a brother 16 years younger and a half-sister on the father's side, whom he has never met. Lived with grandparents from around age 7 due to mother's alcoholism. Socially withdrawn and finds social interactions challenging. Hospital Course Hospital Course He acclimated to the individual, group and milieu therapies provided. He presented with active addiction and being off of his medication including Clozaril. He was challenged by the fact that in the situations things have gone fairly bad for him including suicide attempts when off medication and having psychotic thoughts. He was open to has restarting his medication without incident and with a positive response. He was not on a 96-hour hold and was very resistant to the idea of doing anything beyond getting his medication restarted and returning to his outpatient provider. We contacted his outpatient provider Dr. Simon and he reviewed the case and it was determined that the doctor was open to him being seen very quickly and continuing his management with him and not staying in the hospital any longer. He adjusted well to those medications. He worked with the treatment team to obtain appropriate follow-up and discharge planning. He had significant improvement and was able to contract for safety outside the hospital prior to discharge. The outside hospital, patient had routine laboratory studies which were within normal limits except for few outliers. Additionally there was a general medical evaluation which was also within normal limits and revealed no new acute processes. Discharge Summary: At the time of discharge, he denied psychosis or lethality. And his psychotic symptoms seem to be diminishing. Mood and anxiety were well managed. Patient endorsed a plan to avoid all drugs of abuse and follow-up with the aftercare recommendations of the treatment team. Patient was evaluated and deemed to be absent credible lethality, and had achieved the maximum benefit from an inpatient hospitalization, so was discharged. Meds NPU Home Medications ?Medication ?Instructions ?Recorded ?Confirmed ?Last Taken ?Type citalopram 20 mg tablet (Celexa) 20 mg PO DAILY #30 tabs 01/20/24 07/30/24 Unknown Rx clozapine 100 mg tablet 100 mg PO QAM #90 tabs 01/20/24 07/30/24 07/30/24 Rx clozapine 50 mg tablet 50 mg PO BEDTIME #30 tabs 01/20/24 07/30/24 Unknown Rx apixaban 2.5 mg tablet (Eliquis) See Rx Instructions .Route 04/13/24 07/30/24 Unknown Rx .COMPLEX #30 tabs Allergies Allergy/AdvReac Type Severity Reaction Status Date / Time environmental Allergy Unknown Unknown Uncoded 07/30/24 10:00 ON LICENSE OF [facility] NPU PFSH: Medical History (Updated 07/30/24 @ 09:44 by Hamilton Lemus MD) 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) DVT (deep venous thrombosis) Psychiatric care Chain smoker Other schizophrenia Social History (Updated 07/30/24 @ 09:56 by Hamilton Lemus MD) Smoking and tobacco/nicotine status: current every day tobacco/nicotine user cigarettes Packs smoked per day: 1 Years cigarettes smoked: 15 Quit status (tobacco/nicotine): not considering quitting Second hand smoke exposure: Yes Alcohol intake: current Substance/Drug Use: current Substance/Drug use type: Marijuana Mental Status Exam MSE Comments: This is a slender but well-developed white male in hospital scrubs with limited grooming and limited eye contact. No abnormal involuntary motor movements except for mild psychomotor retardation. He was cooperative with exam in mild distress. Speech was slightly decreased in rate and normal volume. Mood described as all right. His affect was restricted and mood congruent. Thought process was linear and organized. Thought content: Patient denied suicidal or homicidal ideation. There were no delusions reported or noted, he denied any auditory or visual hallucinations. Attention and concentration appeared intact and memory was mostly reliable but none were formally tested. He is alert and oriented x 3. Insight and judgment are poor. Impulse control is poor. Vitals/I&O/Wt Last Vital Signs Temp 97.7 F 07/31/24 16:59 Pulse 91 07/31/24 16:59 Resp 17 07/31/24 16:59 BP 146/97 07/31/24 16:59 Pulse Ox 96 07/31/24 16:59 O2 Del Method Room Air 07/31/24 16:59 07/31/24 07/31/24 07/31/24 06:59 14:59 22:59 Intake Total 0 / 0 Output Total 400 / 400 Balance -400 / 600 0 / 0 Weight last 48 hrs Weight 74 kg Weight 74.843 kg Weight 74.843 kg Data NPU 07/31/24 03:40 07/31/24 03:40 A&P Assessment and plan (1) Schizophrenia: (2) Suicide attempt by adequate means: (3) Alcohol use disorder, severe, dependence: (4) Cannabis use disorder: (5) Hypertension: (6) Chain smoker: Plan This is an 39-year-old white male with history of addiction issues as well as a long history of psychosis/schizophrenia with limited hospitalizations except during times where he has been inconsistent with his medication. Schizophrenia, with a history of psychotic symptoms including disorganized thoughts, visual and auditory hallucinations, initially presenting in 2007. The patient has been on antipsychotic treatment with Clozapine, which has helped manage symptoms and reduce hospitalizations. There is also a history of a suicide attempt in 2019, associated with medication non-compliance and significant stressors. The patient experiences anxiety and social withdrawal, and reports feelings consistent with imposter syndrome. Patient voluntary and wanting to leave today. He agreed to allow a conversation with his outpatient psychiatrist before considering discharge tomorrow. 1. Restart clozapine as well as other medications. Will contact Dr. Simon regarding patient. 2. Encourage individual, group and milieu therapy. 3. Continue every 15 minute checks for safety. 4. Obtain collateral information. Patient remain on CIWA. 5. Encourage sober living treatment after discharge at the highest level care to which he is willing to commit. PDMP PDMP Reviewed: Not Reviewed Attestations NPU Medical Necessity Statement*: Inpatient hospitalization is medically necessary and the clinically appropriate intervention at this time.Will transfer to NPU when bed is available. We will monitor medications and make changes as indicated. He will be in the hospital for over 2 midnights. Likely length of stay 5-7days. Coding Level of Care Code Acute Code for Chg Fwd Diagnoses Other schizophrenia F20.89 Schizophrenia type: other Suicide attempt by adequate means X83.8XXA Alcohol use disorder, severe, dependence F10.20 Cannabis use disorder F12.90 Hypertension I10 Chain smoker F17.200
[2024-08-01 04:00] VITALS: BP 164/107; PULSE 88; RESP 16; TEMP 36.3; O2SAT 95
[2024-08-01 05:43] LABS: Basophils % 0.4 %; Eosinophils % 0.1 %; Lymphocytes # 2.7 10^3/uL (0.8-4.8); Mean Corpuscular HGB Conc 34.2 g/dL (30-55); Mean Corpuscular Hemoglobin 33.1 pg (27-33); Mean Platelet Volume 8.8 fL (7.4-10.4); Monocytes # 0.6 10^3/uL (0.2-0.9); Monocytes % 6.2 %; Nucleated Red Blood Cells % 0 %; Platelet Count 236 10^3/cmm (157-399); Red Blood Count 4.95 10^6/uL (3.85-5.65); Red Cell Distribution Width 13.6 % (12.1-15.1); White Blood Count 9.85 10^3/uL (3.29-11.43)
[2024-08-01 06:04] LABS: Alanine Aminotransferase 13 U/L (0-41); Albumin Level 3.7 g/dL (3.5-5.2); Alkaline Phosphatase 79 U/L (40-130); Anion Gap 12.6 (5-19); Aspartate Amino Transferase 12 U/L (0-40); Blood Urea Nitrogen 7 mg/dL (6-20); Calcium 8.9 mg/dL (8.5-10.5); Carbon Dioxide 28 mmol/L (22-29); Chloride 103 mmol/L (98-107); Glomerular Filtration Rate 93.5 mL/min (90-130); Glucose 98 mg/dL (65-115); Osmolality Calculated 288 mOsm/kg (285-295); Potassium 3.6 mmol/L (3.5-5.1); Sodium 140 mmol/L (136-145); Total Bilirubin 0.4 mg/dL (0.15-1.2); Total Protein 6.7 g/dL (6.6-8.7)
[2024-08-01] MEDS: thiamine 100 mg Tablet PO (07:19)
[2024-08-01] MEDS: multivitamin therapeutic Tablet 1 TAB PO (07:19)
[2024-08-01] MEDS: folic acid 1 mg Tablet PO (07:19)
[2024-08-01 08:00] VITALS: BP 131/85; PULSE 95; RESP 18; TEMP 36.4; O2SAT 95
[2024-08-01 11:56] VITALS: BP 128/79; PULSE 95; RESP 17; TEMP 36.9; O2SAT 98
--- NOTE | 2024-08-01 12:02 | PM.PN ---
Subjective Subjective: Reports he is doing well. Has been tolerating oral intake. No issues with ambulation in the room. No nausea or vomiting. Vitals/I&O/Wt Last Vital Signs Temp 98.4 F 08/01/24 11:56 Pulse 95 08/01/24 11:56 Resp 17 08/01/24 11:56 BP 128/79 08/01/24 11:56 Pulse Ox 98 08/01/24 11:56 O2 Del Method Room Air 08/01/24 11:56 07/31/24 08/01/24 08/01/24 22:59 06:59 14:59 Intake Total 360 / 360 Balance 360 / 360 Weight last 48 hrs Weight 70.488 kg Weight 74 kg Physical Exam Const: COMMON NORMALS: alert GENERAL APPEARANCE: cooperative and lethargic ORIENTATION/CONSCIOUSNESS: Yes confused and Yes lethargic OTHER: Wakes up to voice. HENMT: COMMON NORMALS: oropharynx normal Neck/C-Spine: COMMON NORMALS: no JVD Resp: COMMON NORMALS: normal respiratory effort and clear to auscultation bilaterally AUSCULTATION: clear to auscultation bilaterally Cardio: COMMON NORMALS: no JVD, regular rhythm, S1 normal heart sound present, S2 normal heart sound present and No murmurs present (Cardio) RHYTHM: regular rhythm HEART SOUNDS: S1 normal heart sound present and S2 normal heart sound present GI: COMMON NORMALS: Normal to inspection, nondistended, normoactive bowel sounds present, Soft to palpation and non-tender PALPATION: Yes Soft to palpation Extremity: COMMON NORMALS: no joint enlargement and no pedal edema Neuro: COMMON NORMALS: moves all extremities SENSORIUM/ORIENTATION: Yes alert and Yes lethargic OTHER: Asterixis resolved Skin: COMMON NORMALS: no rashes or lesions noted GENERAL SKIN EXAM: no rashes or lesions noted Data 08/01/24 05:16 08/01/24 05:16 A&P Assessment and plan (1) Drug overdose: Medication overdose with prescribed medication, 15 tablets of 100 mg clozapine, with recent life stressors. Subsequently with acute encephalopathy, with tachycardia, hypertension. Now resolved. He is doing well, tolerating oral intake. Ambulating in the room. Per discussion with psychiatrist transfer further assessment management to neuropsychiatric unit today. Reviewed vitals, CBC, CMP. No liver parameter abnormality. Will sign off at current time, please feel free to call in case of questions. Home psychiatric medications have not been resumed so far per discussion with psychiatry. Discussed with nursing, leather case finisher. He is under 96-hour hold. Plan Acute metabolic encephalopathy: Now resolved. Confused, restless, with asterixis, earlier threatening to hit staff. Required chemical sedation, one-to-one sitter and restraints. Secondary to medication overdose, alcohol withdrawal, as well as methamphetamine intoxication. Depression, suicidal attempt: Pending psychiatric assessment and admission. Psychiatry is consulted. Under 96-hour hold. Alcohol use disorder with possible alcohol withdrawal: Withdrawal resolved. Discussed alcohol use with him. As per outside sources he drinks daily close to a liter of whiskey. It appears that he had stopped 2 to 3 days ago. Per discussion with him he states he mostly drinks socially, although does admit to daily drinking. He does not feel that this is a problem currently to warrant rehabilitation. Discussed with him risks of continued alcohol consumption, recommended discontinuation of alcohol consumption. Offered for outpatient rehabilitation options to be provided, although he declines at this time. Had been treated for component of withdrawal, benzodiazepines as needed per [facility] protocol. Monitor for further withdrawal. Continue thiamine, folic acid, multivitamin. Smoking: Encourage cessation Marijuana use Methamphetamine use: By snorting. Denies any injection use. Discussed with him risk of methamphetamine use, he acknowledged understanding, including risk of stroke, heart attack, other severe and or life-threatening complications. He states he has tried it 3 times so far. He does not feel that it is a advanced problem for him to need rehabilitation. Offered him options to be provided by leather case finisher for outpatient rehabilitation, he declines at this time. PDMP PDMP Reviewed: Not Reviewed Attestations Medical Necessity Statement*: Continue assessment management on psychiatric unit with depression, following suicide attempt, polysubstance use. and High MDM includes amount and/or complexity of data reviewed/ordered [ resulted lab(s)/test(s), ordered lab(s)/test(s) and other healthcare professional discussion] as documented Diagnoses Drug overdose T50.903M
--- NOTE | 2024-08-01 12:50 | PC.NURSE ---
Addendum entered by Caity Black LPN 08/01/24 13:26: This nurse called NPU a second time at 1325. Ginette to call me back as she is doing a pt discharge. Original Note: This nurse attempted to call report to NPU at 1250. No answer.
--- NOTE | 2024-08-01 13:59 | PC.NURSE ---
This nurse called report to DEMETRIUS Peng in NPU at 1355. Security was called for help escorting pt down to NPU.
[2024-08-01 14:24] VITALS: BP 131/84; PULSE 100; RESP 17; TEMP 36.9; O2SAT 96
--- NOTE | 2024-08-01 14:32 | P.NPUPN_ITS ---
Subjective NPU 2 Subjective: 39-year-old male with a history of schiz ophrenia on Clozaril admitted after an overdose on Clozaril with recent reports of continued alcohol use and intermittent use of methamphetamine. Patient had reported no suicidal thoughts currently. He continued to report minimal effects from the use of methamphetamine or alcohol despite its apparent adverse consequences for him. He had continued to report wishing for no additional services to help with addiction. He had reported no prior history of treatment for substance use. He was agreeable to considering counseling. He had denied any hallucinations or paranoid this time. The patient was compliant and redirectable as he was transferred from the medical floor to the this floor today. Mental Status Exam 2 MSE Comments: This is a slender but well-developed white male in hospital scrubs with limited grooming and limited eye contact. No abnormal involuntary motor movements except for mild psychomotor retardation. He was cooperative with exam in mild distress. Speech was slightly decreased in rate and normal in volume. Mood described as okay. His affect was restricted and mood congruent. Thought process was linear and organized. Thought content: Patient denied suicidal or homicidal ideation. There were no delusions reported or noted, he denied any auditory or visual hallucinations. Attention and concentration appeared intact and memory was mostly reliable but none were formally tested. He is alert and oriented x 3. Insight and judgment are poor. Impulse control is poor. Vitals/I&O/Wt Last Vital Signs Temp 98.5 F 08/01/24 14:24 Pulse 100 08/01/24 14:24 Resp 17 08/01/24 14:24 BP 131/84 08/01/24 14:24 Pulse Ox 96 08/01/24 14:24 O2 Del Method Room Air 08/01/24 11:56 07/31/24 08/01/24 08/01/24 22:59 06:59 14:59 Intake Total 600 / 600 Balance 600 / 600 Weight last 48 hrs Weight 70.488 kg Weight 74 kg Data NPU 08/01/24 05:16 08/01/24 05:16 A&P Assessment and plan (1) Schizophrenia: (2) Suicide attempt by adequate means: (3) Alcohol use disorder, severe, dependence: (4) Cannabis use disorder: (5) Hypertension: (6) Chain smoker: Plan This is an 39-year-old white male with history of addiction issues as well as a long history of psychosis/schizophrenia with limited hospitalizations except during times where he has been inconsistent with his medication. Schizophrenia, with a history of psychotic symptoms including disorganized thoughts, visual and auditory hallucinations, initially presenting in 2007. The patient has been on antipsychotic treatment with Clozapine, which has helped manage symptoms and reduce hospitalizations. There is also a history of a suicide attempt in 2019, associated with medication non-compliance and significant stressors. The patient experiences anxiety and social withdrawal, and reports feelings consistent with imposter syndrome. Patient voluntary and wanting to leave today. He agreed to allow a conversation with his outpatient psychiatrist before considering discharge tomorrow. 1. Restart clozapine as well as other medications. referral for psychotherapy, patient not contemplating substance abuse treatment at this time. 2. Encourage individual, group and milieu therapy. 3. Continue every 15 minute checks for safety. 4. Obtain collateral information. Patient remain on CIWA. 5. Encourage sober living treatment after discharge at the highest level care to which he is willing to commit. PDMP PDMP Reviewed: Not Reviewed Involuntary Hold Information 2 Hold Status: Date/Time Hold Expires: 08/03/24 @ 0715 Attestations NPU 2 Medical Necessity Statement*: Inpatient hospitalization is medically necessary and the clinically appropriate intervention at this time. We will monitor medications and make changes as indicated. The patient's likely length of stay 5-7days. Coding Level of Care Code Acute Code for Chg Fwd Diagnoses Other schizophrenia F20.89 Schizophrenia type: other Suicide attempt by adequate means X83.8XXA Alcohol use disorder, severe, dependence F10.20 Cannabis use disorder F12.90 Hypertension I10 Chain smoker F17.200
[2024-08-01 15:08] VITALS: BP 128/83; PULSE 100; TEMP 36.8; O2SAT 99
[2024-08-01 20:00] VITALS: BP 158/93; PULSE 76; RESP 18; TEMP 36.4; O2SAT 96
[2024-08-02] VITALS (7 sets, daily range): BP systolic 119–148; BP diastolic 74–95; PULSE 76–98; RESP 16–18; TEMP 36.3–37; O2SAT 96–100
[2024-08-02 08:24] LABS: Basophils # 0.1 10^3/uL (0.0-0.1); Basophils % 0.5 %; Hematocrit 49.6 % (37-53); Lymphocytes # 2.9 10^3/uL (0.8-4.8); Lymphocytes % 30.3 %; Mean Corpuscular HGB Conc 33.3 g/dL (30-55); Mean Corpuscular Hemoglobin 33.1 pg (27-33); Mean Corpuscular Volume 99.4 fl (82-101); Monocytes # 0.8 10^3/uL (0.2-0.9); Monocytes % 7.9 %; Neutrophils # 5.75 10^3/uL (1.8-7.7); Neutrophils % 60.9 %; Nucleated Red Blood Cells % 0 %; Platelet Count 221 10^3/cmm (157-399); Red Blood Count 4.99 10^6/uL (3.85-5.65); Red Cell Distribution Width 13.3 % (12.1-15.1); White Blood Count 9.45 10^3/uL (3.29-11.43)
[2024-08-02 08:50] LABS: Alanine Aminotransferase 14 U/L (0-41); Albumin Level 3.8 g/dL (3.5-5.2); Alkaline Phosphatase 76 U/L (40-130); Anion Gap 15.1 (5-19); Aspartate Amino Transferase 13 U/L (0-40); Blood Urea Nitrogen 10 mg/dL (6-20); Calcium 9.1 mg/dL (8.5-10.5); Carbon Dioxide 28 mmol/L (22-29); Chloride 104 mmol/L (98-107); Creatinine Clr Calc Pharmacy 129.7833; Globulin 3.1 g/dL (1.3-4.6); Glomerular Filtration Rate 107.1 mL/min (90-130); Glucose 111 mg/dL (65-115); Osmolality Calculated 296 mOsm/kg (285-295); Potassium 4.1 mmol/L (3.5-5.1); Sodium 143 mmol/L (136-145); Total Bilirubin 0.5 mg/dL (0.15-1.2); Total Protein 6.9 g/dL (6.6-8.7)
[2024-08-02] MEDS: folic acid 1 mg Tablet PO ×2 (09:28→09:38)
[2024-08-02] MEDS: multivitamin therapeutic Tablet 1 TAB PO ×2 (09:28→09:37)
[2024-08-02] MEDS: thiamine 100 mg Tablet PO ×2 (09:28→09:37)
--- NOTE | 2024-08-02 14:36 | P.NPUPN_ITS ---
Subjective NPU 2 Subjective: 39-year-old male with a history of schiz ophrenia on Clozaril admitted after an overdose on Clozaril with recent reports of continued alcohol use and intermittent use of methamphetamine. The patient had reported that he was feeling much better. He had reported interest in consideration for counseling although he had continued to minimize the use of stimulant amphetamine and alcohol for managing stressors at home. He had reported no paranoia or auditory hallucinations. He had been less isolative and had been able to attend groups. He had denied any recent social legs isolation. He had denied any depressed mood at this time. Mental Status Exam 2 MSE Comments: This is a tall slender but well-developed white male in hospital scrubs with limited grooming and limited eye contact. No abnormal involuntary motor movements except for mild psychomotor retardation. He was cooperative with exam in mild distress. Speech was slightly normal in rate and normal in volume. Mood described as okay. His affect was restricted and mood congruent. Thought process was linear and organized. Thought content: Patient denied suicidal or homicidal ideation. There were no delusions reported or noted, he denied any auditory or visual hallucinations. Attention and concentration appeared intact and memory was mostly reliable but none were formally tested. He is alert and oriented x 3. Insight is poor and judgment is guarded. Impulse control is poor. Vitals/I&O/Wt Last Vital Signs Temp 98.6 F 08/02/24 12:00 Pulse 96 08/02/24 12:00 Resp 16 08/02/24 12:00 BP 145/74 08/02/24 12:00 Pulse Ox 96 08/02/24 12:00 O2 Del Method Room Air 08/02/24 12:00 Weight last 48 hrs Weight 70.488 kg Data NPU 08/02/24 07:55 08/02/24 07:55 A&P Assessment and plan (1) Schizophrenia: (2) Suicide attempt by adequate means: (3) Alcohol use disorder, severe, dependence: (4) Cannabis use disorder: (5) Hypertension: (6) Chain smoker: Plan This is an 39-year-old white male with history of addiction issues as well as a long history of psychosis/schizophrenia with limited hospitalizations except during times where he has been inconsistent with his medication. Schizophrenia, with a history of psychotic symptoms including disorganized thoughts, visual and auditory hallucinations, initially presenting in 2007. The patient has been on antipsychotic treatment with Clozapine, which has helped manage symptoms and reduce hospitalizations. There is also a history of a suicide attempt in 2020, associated with medication non-compliance and significant stressors. The patient experiences anxiety and social withdrawal, and reports feelings consistent with imposter syndrome. Patient voluntary and wanting to leave today. He agreed to allow a conversation with his outpatient psychiatrist before considering discharge tomorrow. 1. Restart clozapine beginning at 100mg bid and referral for psychotherapy. Restart celexa 20mg daily. CBC with Diff ordered. 2. Encourage individual, group and milieu therapy. 3. Continue every 15 minute checks for safety. 4. Obtain collateral information. Patient remain on CIWA. 5. Encourage sober living treatment after discharge at the highest level care to which he is willing to commit. PDMP PDMP Reviewed: Not Reviewed Involuntary Hold Information 2 Hold Status: Legal Status: 96 Hour Hold Date/Time Hold Expires: 08/03/24 @ 0715 Attestations NPU 2 Medical Necessity Statement*: Inpatient hospitalization is medically necessary and the clinically appropriate intervention at this time. We will monitor medications and make changes as indicated. The patient's likely length of stay 2-3 days. Coding Level of Care Code Acute Code for Chg Fwd Diagnoses Other schizophrenia F20.89 Schizophrenia type: other Suicide attempt by adequate means X83.8XXA Alcohol use disorder, severe, dependence F10.20 Cannabis use disorder F12.90 Hypertension I10 Chain smoker F17.200
[2024-08-02 14:43] LABS: Total Cells Counted 100 (0-100)
[2024-08-02 14:44] LABS: Eosinophils 0 %; Lymphocytes 37 %; Platelet Estimate Normal (Normal); Segmented Neutrophils 56 %
[2024-08-02] MEDS: cloZAPine 100 mg Tablet PO (18:17)
[2024-08-03 06:00] VITALS: BP 136/87; PULSE 80; RESP 18; TEMP 36.8; O2SAT 98
[2024-08-03] MEDS: citalopram 20 mg Tablet PO (08:29)
[2024-08-03] MEDS: cloZAPine 100 mg Tablet PO (08:29)
[2024-08-03 09:45] VITALS: BP 136/87; PULSE 80; RESP 18; TEMP 36.8; O2SAT 98
[2024-08-03 11:44] LABS: Amphetamine 1100 ng/mL; Methamphetamine 10000 ng/mL; Methylenedioxyamphetamine negative; Methylenedioxyethylamphetamine negative; Methylenedioxymethamphetamine negative
[2024-08-03 14:00] VITALS: BP 154/111; PULSE 104; RESP 16; TEMP 36.9; O2SAT 96
--- NOTE | 2024-08-03 14:05 | P.NPUDS_ITS ---
Diagnoses at Discharge Discharge Diagnosis (1) Schizophrenia: Status: Acute Qualifiers: Schizophrenia type: other Qualified Code(s): F20.89 - Other schizophrenia (2) Suicide attempt by adequate means: Status: Acute (3) Alcohol use disorder, severe, dependence: Status: Acute (4) Cannabis use disorder: Status: Acute (5) Hypertension: Status: Acute (6) Chain smoker: Status: Acute Reason for Visit Reason for Visit: overdose Brief History: History of Present Illness Navarro Ring is a 39 year old male recently discharged from the neuropsychiatric unit approximately 2-1/2 months ago who presented to the emergency department after admitting to overdose on 15 tablets of 100 mg of Clozaril. The patient had appeared confused and combative and was placed in restraints and ultimately placed on a 96-hour hold. He had spent 1 night in the intensive care unit and was seen today on the medical floor awaiting bed availability on the neuropsychiatric unit. The patient had reported that he had been stressed by his mother and girlfriend and stated that he had been tired of being told what to do. He reports that he often struggles with managing his stress at home stating that he had felt that his girlfriend and mother had unusually high expectations of him and he states that he had been extremely stressed out and decided to take the pills. He had reported that he is not currently suicidal. He denied any feelings of hopelessness or worthlessness. The patient had reported that he becomes depressed from time to time. He had continued to report alcohol use but minimized the significance of his use. He had also acknowledged intermittent use of methamphetamine but reported that he was not addicted to this. The patient's urine drug screen was positive for amphetamines on admission. He had reported no substantiative changes in his cur rent situation with no changes in stressors since his last hospitalization 2 and half months ago. He had denied any paranoia, or auditory or visual hallucinations. He had reported no change in overall motivation. He had reported compliance with his current medication regimen. Patient had admitted to a significant amount of consumption of alcohol on a daily basis with no reports of alcohol related withdrawal symptoms. He had reported drinking approximately a pint of alcohol a day and reported last use of alcohol 2 to 3 days prior to admission. Current medications: Celexa 20 mg daily, Clozaril 50 mg in the morning and 100 mg at night, Eliquis Excerpt from NPU Discharge Summary from 05/21/24 Discharge Diagnosis (1) Alcohol use disorder, severe, depend ence: Status: Acute (2) Schizophrenia: Status: Acute (3) Cannabis use disorder: Status: Acute (4) Hypertension: Status: Acute (5) Chain smoker: Status: Acute Reason for Visit SI Brief History: History of Present Illness Navarro Ring is a 39 year old male who presented to the emergency department with the following report: Chief Complaint: Psychiatric Symptoms Stated Complaint: SI Time Seen by Provider: 05/20/24 21:11 History of Present Illness: 39-year-old male patient with a history of schizophrenia and 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 He presents with worsening hallucinations, including visual, auditory and olfactory. He states he stopped taking his medicine a few days ago. He has been drinking alcohol instead. He has had up to 1 L of whiskey over the last 48 hours or so he says. He is currently not homicidal. He is currently not suicidal. He has had suicidal thoughts previously today though. He does not have a plan. He is here because he is seeking help with his psychiatric crisis . He was admitted to the neuropsychiatric unit for definitive treatment of those issues. He is known to [facility] through inpatient psychiatric services about 13 years ago and outpatient services mostly from that hospitalization forward. He presented with a UDS positive for amphetamines and cannabis as well as a blood alcohol of 228. He presented today reporting: Chief complaint Intoxication leading to hospitalization after family concern. History of the present complaint The patient reports a history of heavy alcohol use, which led to the current hospitalization. The patient became heavily intoxicated, prompting their mother to call for an ambulance. The patient has been drinking daily for years, consuming approximately 375 milliliters of Southern [place]fort, equating to about 8 1/2 shots per day. The patient started drinking alcohol in April 2002, during their last semester of high school, and the consumption has progressively increased over time. The patient expresses a desire to stop drinking and acknowledges the need to move on from alcohol use. The patient has a long-standing history of mental health issues, including a diagnosis of schizophrenia prior to 2012, which was initially labeled as stress- induced. The patient experienced a psychotic break in 2007 while in graduate school, studying mathematics. Symptoms at that time included disorganized thoughts, visual hallucinations, and auditory hallucinations. The patient has been on various antipsychotic medications, including Clozapine, which has helped avoid hospitalizations since 2011, except for one in 2019. The patient has also been on citalopram and Eliquis but stopped taking these medications four to five days before the current encounter. The patient reports a history of depression, including feelings of hopelessness and worthlessness. The patient attempted suicide in 2019 after discontinuing medication for about a month. This period coincided with a significant personal stressor: the patient's grandmother, who had been a lifelong support, suffered a stroke in March 2019. The patient was responsible for her care until she was moved to a group home, which the patient found very stressful and felt like a personal failure. The patient describes themselves as socially withdrawn and experiences anxiety, particularly in social situations. The patient reports feeling like an imposter in various aspects of life, contributing to their anxiety. The patient denies current suicidal ideation but acknowledges past experiences of severe depression and a suicide attempt. The patient has a family history of mental health issues, including depression, anxiety, schizophrenia, bipolar disorder, ADHD, autism, and PTSD. The patient's uncle, a [place] , has PTSD. The patient also mentions a possible mental illness in a paternal aunt, though details are unclear. The patient has been smoking cigarettes since 2004, consuming about a pack a day. The patient occasionally uses marijuana, which began in June 2002, but reports that it affects their memory of dreams. The patient denies using other drugs such as methamphetamine, opiates, or ecstasy and has never attended rehab or received drug and alcohol treatment. The patient has no history of legal issues related to substance use. The patient grew up in a challenging environment, with their mother being an alcoholic during their childhood. The patient lived with their grandparents from a young age, around 7 years old, due to their mother's alcoholism. The patient has a younger half-brother and a half-sister on their father's side, whom they have never met. The patient has never been and has no confirmed biological children, though there is a possibility of having a child from a past relationship. The patient is currently on disability and lives on property owned by their grandmother's trust. Mental health history Diagnosed with schizophrenia prior to 2012, initially labeled as stress-induced. Experienced a psychotic break in 2007 while in graduate school, studying mathematics, with symptoms including disorganized thoughts, visual and auditory hallucinations. Hospitalized in 2011 and 2019. Attempted suicide in 2020 after stopping medication for an extended period, coinciding with a personal crisis involving the care of his grandmother. Has been under psychiatric care for at least 13 years and has been on various medications, including Clozapine, citalopram, and previously Haldol. Reports feelings of depression, imposter syndrome, and social withdrawal. No current suicidal ideation. Family history includes mental illness on both maternal and paternal sides, with an uncle chin sandrag PTSD. Social history Lives on grandmother's trust property. Has a history of alcohol use starting in April 2002, with daily consumption until hospitalization, typically 375 milliliters of [place]fort. Smokes about a pack of cigarettes daily since 2004. Occasional cannabis use since June 2002. No history of drug and alcohol treatment or legal issues related to substance use. Lives with numerous pets, including approximately 20 beagles and 6 other pets. Currently on disability. 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 No history of marriage or biological children, though there is a potential child from a past relationship. Identifies as heterosexual. Has a brother 16 years younger and a half-sister on the father's side, whom he has never met. Lived with grandparents from around age 7 due to mother's alcoholism. Socially withdrawn and finds social interactions challenging. Hospital Course Hospital Course He acclimated to the individual, group and milieu therapies provided. He presented with active addiction and being off of his medication including Clozaril. He was challenged by the fact that in the situations things have gone fairly bad for him including suicide attempts when off medication and having psychotic thoughts. He was open to has restarting his medication without incident and with a positive response. He was not on a 96-hour hold and was very resistant to the idea of doing anything beyond getting his medication restarted and returning to his outpatient provider. We contacted his outpatient provider Dr. Simon and he reviewed the case and it was determined that the doctor was open to him being seen very quickly and continuing his management with him and not staying in the hospital any longer. He adjusted well to those medications. He worked with the treatment team to obtain appropriate follow-up and discharge planning. He had significant improvement and was able to contract for safety outside the hospital prior to discharge. The outside hospital, patient had routine laboratory studies which were within normal limits except for few outliers. Additionally there was a general medical evaluation which was also within normal limits and revealed no new acute processes. Discharge Summary: At the time of discharge, he denied psychosis or lethality. And his psychotic symptoms seem to be diminishing. Mood and anxiety were well managed. Patient endorsed a plan to avoid all drugs of abuse and follow-up with the aftercare recommendations of the treatment team. Patient was evaluated and deemed to be absent credible lethality, and had achieved the maximum benefit from an inpatient hospitalization, so was discharged. Hospital Course Hospital Course The patient was originally admitted to the intensive care unit after his overdose on Clozaril. He was eventually stabilized and transferred to the neuropsychiatric unit for further treatment. Medications were eventually resumed with no changes made. The patient was agreeable to continuing psychotherapy and was agreeable to consideration for further treatment regarding his substance abuse issues. During the hospitalization, the patient had routine laboratory studies which were within normal limits except for a few outliers.? Additionally, there was a general medical evaluation which was also within normal limits and revealed no new acute processes.? At the time of discharge, lethality was denied and psychosis was resolving.? Mood and anxiety were well managed.? The patient endorsed a plan to avoid all drugs of abuse and follow up with the aftercare recommendations of the treatment team.? The patient was evaluated and deemed to be absent credible lethality and had achieved the maximum benefit from an inpatient hospitalization, and so was discharged. ? Involuntary Hold Information Hold Status: Legal Status: 96 Hour Hold Date/Time Hold Expires: 08/03/24 @ 0715 Mental Status Exam MSE Comments: This is a tall slender but well-developed white male in hospital scrubs with limited grooming and limited eye contact. No abnormal involuntary motor movements except for mild psychomotor retardation. He was cooperative with exam in mild distress. Speech was slightly normal in rate and normal in volume. Mood described as okay. His affect was restricted and mood congruent. Thought process was linear and organized. Thought content: Patient denied suicidal or homicidal ideation. There were no delusions reported or noted, he denied any auditory or visual hallucinations. Attention and concentration appeared intact and memory was mostly reliable but none were formally tested. He is alert and oriented x 3. Insight is poor and judgment is fair on discharge. Impulse control is guarded. Discharge Data Studies Completed and Pending: Completed Studies During Hospitalization Category Date Time Status XR chest 1V nury ble [id number] Stat Exams 07/30/24 06:28 Completed Radiology Impressions Chest X-Ray 07/30/24 06:28 IMPRESSION: No acute findings. Laboratory Results WBC 9.45 10^3/uL (3.2 9-11.43) 08/02/24 07:55 RBC 4.99 10^6/uL (3.8 5-5.65) 08/02/24 07:55 Hgb 16.50 g/dL (11.27 -16.99) 08/02/24 07:55 Hct 49.6 % (37-53) 08/02/24 07:55 MCV 99.4 fl (82-101) 08/02/24 07:55 MCH 33.1 pg (27-33) H 08/02/24 07:55 MCHC 33.3 g/dL (30-55) 08/02/24 07:55 RDW 13.3 % (12.1-15.1 ) 08/02/24 07:55 Plt Count 221 10^3/cmm (157 -399) 08/02/24 07:55 MPV 9.0 fL (7.4-10.4) 08/02/24 07:55 Neut % (Auto) 60.9 % 08/02/24 07:55 Lymph % (Auto) 30.3 % 08/02/24 07:55 [place] % (Auto) 7.9 % 08/02/24 07:55 Eos % (Auto) 0.0 % 08/02/24 07:55 Baso % (Auto) 0.5 % 08/02/24 07:55 Neut # (Auto) 5.75 10^3/uL (1.8 -7.7) 08/02/24 07:55 Lymph # (Auto) 2.9 10^3/uL (0.8- 4.8) 08/02/24 07:55 [place] # (Auto) 0.8 10^3/uL (0.2- 0.9) 08/02/24 07:55 Eos # (Auto) 0.0 10^3/uL (0.0- 0.8) 08/02/24 07:55 Baso # (Auto) 0.1 10^3/uL (0.0- 0.1) 08/02/24 07:55 Nucleated RBC % (a uto) 0 % 08/02/24 07:55 Total Counted 100 (0-100) 08/02/24 07:55 Atypical Lymphs % Not Reportable 08/02/24 07:55 Segmented Neutroph ils 56 % 08/02/24 07:55 Band Neutrophils Not Reportable 08/02/24 07:55 Lymphocytes (Man[place] l) 37 % 08/02/24 07:55 Monocytes (Manual) 7.0 % 08/02/24 07:55 Eosinophils (Man[place] l) 0 % 08/02/24 07:55 Basophils (Manual) 0.0 % 08/02/24 07:55 Nucleated RBCs # 0.0 /100WBC 08/02/24 07:55 Platelet Estimate Normal (Normal) 08/02/24 07:55 PT 12.80 SECONDS (12 .1-14.9) 07/30/24 06:32 INR 0.90 (0.8-1.2) 07/30/24 06:32 Specimen Type Arterial 07/30/24 06:55 Sample Site Radial, left 07/30/24 06:55 ABG pH 7.39 (7.35-7.45) 07/30/24 06:55 ABG pCO2 38.9 mmHg (35-45) 07/30/24 06:55 ABG pO2 89.4 mmHg (80.0-1 00.0) 07/30/24 06:55 ABG PO2/FiO2 Ratio 425 07/30/24 06:55 ABG HCO3 23.6 mmol/L (22-2 6) 07/30/24 06:55 ABG O2 Saturation 97.2 07/30/24 06:55 ABG Base Excess -1.2 mmol/L (-2.0 -2.0) 07/30/24 06:55 Juan Test Pos 07/30/24 06:55 A-a O2 Gradient 1.4 mmHg (5-10) L 07/30/24 06:55 Hematocrit 45.3 % (42-52) 07/30/24 06:55 Hgb O2 Saturation 93.6 % (95-100) L 07/30/24 06:55 Carboxyhemoglobin 2.7 %THgb (0.4-20 .1) 07/30/24 06:55 Methemoglobin 1.0 % (0.4-1.5) 07/30/24 06:55 Total Hemoglobin 14.8 g/dL (14-18) 07/30/24 06:55 Sodium 140.0 mmol/L (131 -143) 07/30/24 06:55 Potassium 3.4 mmol/L (3.5-5 .0) L 07/30/24 06:55 Glucose 119.0 mg/dL (70-1 15) H 07/30/24 06:55 Ionized Calcium 1.1 mmol/L (1.1-1 .4) 07/30/24 06:55 O2 Delivery Device Room air 07/30/24 06:55 FiO2 21.0 % 07/30/24 06:55 [employer] ID [place] 07/30/24 06:55 Sodium 143 mmol/L (136-1 45) 08/02/24 07:55 Potassium 4.1 mmol/L (3.5-5 .1) 08/02/24 07:55 Chloride 104 mmol/L (98-10 7) 08/02/24 07:55 Carbon Dioxide 28 mmol/L (22-29) 08/02/24 07:55 Anion Gap 15.1 (5-19) 08/02/24 07:55 BUN 10 mg/dL (6-20) 08/02/24 07:55 Creatinine 0.8 mg/dL (0.7-1. 2) 08/02/24 07:55 GFR Calculation 107.1 mL/min (90- 130) 08/02/24 07:55 Glucose 111 mg/dL (65-115 ) 08/02/24 07:55 Calculated Osmolal ity 296 mOsm/kg (285- 295) H 08/02/24 07:55 Calcium 9.1 mg/dL (8.5-10 .5) 08/02/24 07:55 Total Bilirubin 0.5 mg/dL (0.15-1 .2) 08/02/24 07:55 AST 13 U/L (0-40) 08/02/24 07:55 ALT 14 U/L (0-41) 08/02/24 07:55 Alkaline Phosphata se 76 U/L (40-130) 08/02/24 07:55 Creatine Kinase 167 U/L (39-308) 07/31/24 03:40 Total Protein 6.9 g/dL (6.6-8.7 ) 08/02/24 07:55 Albumin 3.8 g/dL (3.5-5.2 ) 08/02/24 07:55 Globulin 3.1 g/dL (1.3-4.6 ) 08/02/24 07:55 Urine Color Yellow (Yellow) 07/30/24 07:02 Urine Appearance Clear (CLEAR) 07/30/24 07:02 Urine pH 7 (5-7) 07/30/24 07:02 Ur Specific Gravit y 1.005 (1.005-1.0 30) 07/30/24 07:02 Urine Protein Neg (Negative) 07/30/24 07:02 Urine Glucose (UA) 1+ (Normal) H 07/30/24 07:02 Urine Ketones Negative (Negati ve) 07/30/24 07:02 Urine Blood Neg (Negative) 07/30/24 07:02 Urine Nitrate Negative (Negati ve) 07/30/24 07:02 Urine Bilirubin Neg (Negative) 07/30/24 07:02 Urine Urobilinogen Neg mg/dL (Negati ve) 07/30/24 07:02 Ur Leukocyte Bailee ase 1+ (Negative) H 07/30/24 07:02 Urine RBC 0-2 /hpf (0-2) 07/30/24 07:02 Urine WBC 6-10 /hpf (0-5) 07/30/24 07:02 Ur Squamous Epith Cells 0-5 /hpf (0-5) 07/30/24 07:02 Amorphous Sediment Not Reportable 07/30/24 07:02 Urine Bacteria None seen /hpf (N ONE) 07/30/24 07:02 Hyaline Casts 0-4 /lpf H 07/30/24 07:02 Salicylates < 0.3 mg/dL (3-10 ) L 07/30/24 06:32 Urine Opiates Scre en Negative ng/mL (N egative) 07/30/24 07:02 Acetaminophen < 5.0 ug/mL (10-3 0) L 07/30/24 06:32 Ur Barbiturates Sc reen Negative ng/mL (N egative) 07/30/24 07:02 Ur Phencyclidine S crn Negative ng/mL (N egative) 07/30/24 07:02 Amphetamines 1100 ng/mL 07/30/24 07:02 Ur Amphetamines Sc reen Positive ng/mL (N egative) H 07/30/24 07:02 Methamphetamine GC /MS 72554 ng/mL 07/30/24 07:02 Methylenedioxyamph MDA negative 07/30/24 07:02 MDEA negative 07/30/24 07:02 Urine MDMA negative 07/30/24 07:02 U Benzodiazepines Scrn Negative ng/mL (N egative) 07/30/24 07:02 Urine Cocaine Scre en Negative ng/mL (N egative) 07/30/24 07:02 U Marijuana (THC) Screen Negative ng/mL (N egative) 07/30/24 07:02 Ethyl Alcohol < 10 mg/dL (0-10) 07/30/24 06:32 Vitals: Last Vital Signs Temp 98.3 F 08/03/24 09:45 Pulse 80 08/03/24 09:45 Resp 18 08/03/24 09:45 BP 136/87 08/03/24 09:45 Pulse Ox 98 08/03/24 09:45 O2 Del Method Room Air 08/03/24 06:00 Discharge Plan Discharge Patient Disposition: Home Condition: Stable Prescriptions: Continued citalopram [Celexa] 20 mg tablet 20 mg PO DAILY Qty: 30 11RF clozapine 100 mg tablet 100 mg PO QAM Qty: 90 11RF Rx Instructions: Take one tablet in the morning and two tablets at night. clozapine 50 mg tablet 50 mg PO BEDTIME Qty: 30 11RF Rx Instructions: Take with two 100mg tabs at night for total nightly dose of 250mg. Eliquis 2.5 mg tablet See Rx Instructions .ROUTE .COMPLEX Qty: 30 11RF Dose Instruction: TAKE 1 TABLET BY MOUTH EVERY DAY Rx Instructions: TAKE 1 TABLET BY MOUTH EVERY DAY Discharge Orders: Discharge Order (Routine); Ordered 08/03/24 Ordered By: Jay Adame Referrals: Robert Michel DO [Primary Care Provider, Family Practice] Partha Simon DO [Staff Physician, Psychiatry] Discharge Diet: Usual diet Discharge Activity: Resume usual activity Patient Instructions: Clozapine (By mouth), Depression (DC), Methamphetamine Use Disorder (DC), Anxiety (DC), Suicide Prevention (DC), Opioid Safety, Pain Management Discharge Attestations NPU Time Spent in Discharge Care*: less than 30 min Specific Discharge Activities: Specific discharge activities: educating patient and discussing with complex case manager/social workers/dc planners Coding Level of Care Code Acute Code for Chg Fwd Diagnoses Other schizophrenia F20.89 Schizophrenia type: other Suicide attempt by adequate means X83.8XXA Alcohol use disorder, severe, dependence F10.20 Cannabis use disorder F12.90 Hypertension I10 Chain smoker F17.200
== END 2024-08-03 15:55 | disposition home or self-care (01) | DRG 917 ==
LOC: ER 09:34 → ICU 09:58 → MEDSURG 07-31 16:25 → NP 08-01 14:11
PROVIDERS: Psychiatry & Neurology Psychiatry; Admitting Provider Internal Medicine; Emergency Provider Family Medicine; PCP Family Medicine; Visit Provider Internal Medicine
DX: T42.4X2A Poisoning by benzodiazepines, intentional self-harm, initial encounter (principal); G93.41 Metabolic encephalopathy; F20.89 Other schizophrenia; F10.20 Alcohol dependence, uncomplicated; F12.90 Cannabis use, unspecified, uncomplicated; I10 Essential (primary) hypertension; F17.210 Nicotine dependence, cigarettes, uncomplicated; F15.90 Other stimulant use, unspecified, uncomplicated; G62.9 Polyneuropathy, unspecified; Z81.8 Family history of other mental and behavioral disorders; Z86.718 Personal history of other venous thrombosis and embolism; I45.10 Unspecified right bundle-branch block; F32.A Depression, unspecified; R00.0 Tachycardia, unspecified
CPT/HCPCS: 36415; 36600; 71045; 80051; 80053; 80306; 80307; 80324; 80359; 81001; 82330; 82550; 82805; 85007; 85025; 85610; 93005; 96372; 96374; 96375; 96376; 97150; 97165; 99285; 99291; J2060; J3411; J3490; J7030; J9999

== ENCOUNTER → 2024-09-13 16:08 | Outpatient (BNVA) | payer SELFPAY ==
[2024-03-19 14:44] VITALS: BP 145/88
[2024-03-19 14:46] VITALS: BMI 21.7
== END ==
PROVIDERS: PCP Family Medicine; Visit Provider Psychiatry & Neurology Psychiatry
DX: F20.89 Other schizophrenia (principal); Z79.899 Other long term (current) drug therapy
CPT/HCPCS: 85007; 85027

== ENCOUNTER → 2024-10-11 16:07 | Outpatient (BNVA) | payer OTHER, SELFPAY ==
[2024-03-19 14:44] VITALS: BP 145/88
[2024-03-19 14:46] VITALS: BMI 21.7
== END ==
PROVIDERS: PCP Family Medicine; Visit Provider Psychiatry & Neurology Psychiatry
DX: F20.89 Other schizophrenia (principal); Z79.899 Other long term (current) drug therapy
CPT/HCPCS: 85007; 85027

== ENCOUNTER → 2024-11-07 16:28 | Outpatient (BNVA) | payer OTHER, SELFPAY ==
[2024-03-19 14:44] VITALS: BP 145/88
[2024-03-19 14:46] VITALS: BMI 21.7
== END ==
PROVIDERS: PCP Family Medicine; Visit Provider Psychiatry & Neurology Psychiatry
DX: Z79.899 Other long term (current) drug therapy (principal)
CPT/HCPCS: 85007; 85027

== ENCOUNTER 2025-01-17 14:44 | Inpatient (IN) | payer MEDICAID, SELFPAY ==
[2024-03-19 14:44] VITALS: BP 145/88
[2024-03-19 14:46] VITALS: BMI 21.7
--- NOTE | 2025-01-17 14:45 | ED.C_ITS ---
HPI - Psych 2 General: Chief Complaint: Psychiatric Symptoms Stated Complaint: mhe Time Seen by Provider: 01/17/25 14:44 History of Present Illness: 39-year-old man with a history of DVT, s chizophrenia, alcohol use disorder, methamphetamine abuse, cannabis use, and tobacco dependence who presents to the emergency room by ambulance with concerns for the patient's wellbeing. Reports that he had stopped taking his psychiatric medications and initially was found in a field wandering. Was arrested and placed on a 12-hour hold in the police facility. Released to his mother. He said he then went home and slept and then when he woke up he was back outside wandering around and confused again. Police had to be called yet again. This time he was brought to the emergency room. Related Data Home Medications ?Medication ?Instructions ?Recorded ?Confirmed apixaban 2.5 mg tablet (Eliquis) 2.5 mg PO DAILY 01/1701/17/25 citalopram 20 mg tablet 20 mg PO DAILY 01/17/2512/27 clozapine 100 mg tablet See Rx Instructions .Route . 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 Skin: Warm, dry. Head: Normocephalic, atraumatic. Neck: Supple, trachea midline. Eye: Extraocular movements are intact. Ears, nose, mouth and throat: mucosa moist. Cardiovascular: Regular, Normal peripheral perfusion. Respiratory: Lungs are clear to auscultation, respirations are non-labored, breath sounds are equal, Symmetrical chest wall expansion. Gastrointestinal: Soft, Nontender, Non distended Musculoskeletal: Normal ROM, no deformity. Neurological: Alert unable to assess orientation, No focal neurological deficit observed. Psychiatric: Unable to assess fully. Patient has very flat affect and does not answer any questions. At 1 point he stands up in the chair and holds his hands up like he is being arrested. He then has some strange movements in and sat back down on the chair. Course 2 Vital Signs: Vital signs: Vital Signs Temperature 99.0 F 01/17/25 14:47 Pulse Rate 56 L 01/17/25 14:47 Respiratory Rate 18 01/17/25 14:47 Blood Pressure 120/68 01/17/25 14:47 Pulse Oximetry 99 01/17/25 14:47 Oxygen Delivery Me thod Room Air 01/17/25 14:47 MDM - Psych Medical Decision Making Medical decision making: Patient's reason for coming to the emergency room: Altered mental status, schizophrenia, concern for safety and wellbeing Social determinants: Patient is disabled. He has currently not been taking his medications. He has been arrested and picked up by the police 2 times. I reviewed the patient's medical record. Patient has a history of chronic inflammatory demyelinating polyneuropathy and DVT and is chronically anticoagulated on Eliquis, methamphetamine abuse, alcohol abuse, cannabis use, and schizophrenia. I also discussed the patient's chart with Dr. Robles. He informed me that the patient had overdosed on his home Clozaril and presented much the same as he is today. I reviewed the patient's current home meds No meds listed here but I did discuss with Dr. Robles and he is on Clozaril at home Alternate historians: Alternate history from EMS. Also from Dr. Robles. Differential diagnosis for patient with reported psychosis with plan for psychiatric admission including but not limited to and based on the above HPI, review of systems and physical exam: concerns for infection, alcohol intoxication, cardiac issues or other medical problems prior to psychiatric admission. Orders placed to evaluate differential diagnosis based on the above differential, HPI and physical exam labwork, ekg ordered to evaluate the pathologies and to clear the patient medically prior to psychiatric admission Lab Review: Laboratory results were reviewed and interpreted by myself the emergency room physician. - Medically cleared. - EKG shows no ischemic changes. - Blood alcohol level is negative, as well as salicylate and Tylenol. - Urinalysis and urine drug screen are pending. Also a Clozaril level was ordered and pending. - No anemia. - BUN and creatinine are within normal limits. Assessment of risk: - Level of risk: High risk. Psychotic patient. He is currently not speaking which makes things more difficult but the fact that he will not say that he is not suicidal or homicidal and that he has been engaged in risky behaviors and wandering is of great concern. - Was hospitalization considered? Yes patient is being placed on a 96-hour hold and admitted. Reexamination: Patient remained stable. No increased work of breathing. When I went back to talk to him he is now speaking but acts confused when I ask many questions about what was going on. He is much more interactive now though. Consultation: I spoke with Dr. Robles. Informed me of some of the patient's previous history as above. He is agreed to admission. He agrees that the patient is a danger to himself and agrees with placing a 96-hour hold Assessment and plan: Psychosis Schizophrenia Medical noncompliance ?96-hour hold placed on the patient. -Admission to neuropsychiatric unit for continued evaluation and treatment. - All lab work was reviewed and interpreted personally by myself, the ER physician - Evaluation and treatment of this problem were appropriate in the emergency setting Lab Data 01/17/25 15:13 01/17/25 15:13 Laboratory Results WBC 8.71 10^3/uL (3.29-11.43) 01/17/25 15:13 RBC 5.27 10^6/uL (3.85-5.65) 01/17/25 15:13 Hgb 16.10 g/dL (11.27-16.99) 01/17/25 15:13 Hct 45.6 % (37-53) 01/17/25 15:13 MCV 86.5 fl (82-101) 01/17/25 15:13 MCH 30.6 pg (27-33) 01/17/25 15:13 MCHC 35.3 g/dL (30-55) 01/17/25 15:13 RDW 13.2 % (12.1-15.1) 01/17/25 15:13 Plt Count 260 10^3/cmm (157-399) 01/17/25 15:13 MPV 9.7 fL (7.4-10.4) 01/17/25 15:13 Neut % (Auto) 65.7 % 01/17/25 15:13 Lymph % (Auto) 24.8 % 01/17/25 15:13 Letcher % (Auto) 8.7 % 01/17/25 15:13 Eos % (Auto) 0.0 % 01/17/25 15:13 Baso % (Auto) 0.5 % 01/17/25 15:13 Neut # (Auto) 5.72 10^3/uL (1.8-7.7) 01/17/25 15:13 Lymph # (Auto) 2.2 10^3/uL (0.8-4.8) 01/17/25 15:13 Letcher # (Auto) 0.8 10^3/uL (0.2-0.9) 01/17/25 15:13 Eos # (Auto) 0.0 10^3/uL (0.0-0.8) 01/17/25 15:13 Baso # (Auto) 0.0 10^3/uL (0.0-0.1) 01/17/25 15:13 Nucleated RBC % (auto) 0 % 01/17/25 15:13 Nucleated RBCs # 0.0 /100WBC 01/17/25 15:13 Sodium 136 mmol/L (136-145) 01/17/25 15:13 Potassium 3.4 mmol/L (3.5-5.1) L 01/17/25 15:13 Chloride 96 mmol/L (98-107) L 01/17/25 15:13 Carbon Dioxide 27 mmol/L (22-29) 01/17/25 15:13 Anion Gap 16.4 (5-19) 01/17/25 15:13 BUN 10 mg/dL (6-20) 01/17/25 15:13 Creatinine 0.7 mg/dL (0.7-1.2) 01/17/25 15:13 GFR Calculation 124.9 mL/min (90-130) 01/17/25 15:13 Glucose 100 mg/dL (65-115) 01/17/25 15:13 Calculated Osmolality 281 mOsm/kg (285-295) L 01/17/25 15:13 Calcium 9.4 mg/dL (8.5-10.5) 01/17/25 15:13 Total Bilirubin 0.6 mg/dL (0.15-1.2) 01/17/25 15:13 AST 23 U/L (0-40) 01/17/25 15:13 ALT 21 U/L (0-41) 01/17/25 15:13 Alkaline Phosphatase 93 U/L (40-130) 01/17/25 15:13 Total Protein 7.5 g/dL (6.6-8.7) 01/17/25 15:13 Albumin 4.4 g/dL (3.5-5.2) 01/17/25 15:13 Globulin 3.1 g/dL (1.3-4.6) 01/17/25 15:13 TSH 0.19 uIU/mL (0.27-4.20) L 01/17/25 15:13 Salicylates < 0.3 mg/dL (3-10) L 01/17/25 15:13 Acetaminophen < 5.0 ug/mL (10-30) L 01/17/25 15:13 Ethyl Alcohol < 10 mg/dL (0-10) 01/17/25 15:13 No radiology studies performed this visit Discharge Plan Discharge Patient Disposition: Admitted As Inpatient Admit Provider: Jay Adame Clinical Impression: Acute psychosis, Chronic schizophrenia, CIDP (chronic inflammatory demyelinating polyneuropathy), Chronic anticoagulation, Medical non-compliance DVT (deep venous thrombosis) Qualifiers: DVT location: lower extremity Affected thrombotic vein of extremity: u nspecified lower extremity proximal vein Chronicity: chronic Laterality: left Q ualified Code(s): I82.5Y2 - Chronic embolism and thrombosis of unspecified deep veins of left proximal lower extremity Condition: Stable Coding Level of Care Code ED Director Biostatistics for Trey Hyman
[2025-01-17 14:47] VITALS: BP 120/68; PULSE 56; RESP 18; TEMP 37.2; O2SAT 99
--- OUTSIDE RECORDS SUMMARY | 2025-01-17 15:05 | XMS_ITS | Clinical Summary ---
Author Organization [facility] Address [address] [facility] Attn: Epic Prelude ADT [place] [address] Care Team Providers Care Aids Nurse Name Role Phone Gabriel Barth DO Primary Care Provider Unava ilable Allergies No known active allergies Medications cloZAPine (CLOZARIL) 100 mg tablet Take 100 mg by mouth see administration instructions 250mg in AM and 300mg in PM . 7 Active propranoloL (INDERAL) 40 mg tablet Take 40 mg by mouth 2 times daily. 7 Active omeprazole (PriLOSEC) 40 mg Capsule, Delayed Release(E.C.) Take 40 mg by mouth daily. 7 Active glycopyrrolate (ROBINUL) 1 mg tablet Take 3 mg by mouth daily at bedtime. 7 Active Immunizations Immunization Administration Dates Next Due (ADACEL/BOOSTRIX)(10 YR UP) TDAP VACCINE, 0.5ML, IM 05/06/2011 Social History Tobacco Use Types Packs/Day Years Used Date Smoking Tobacco: Every Day Cigarettes Alcohol Use Standard Drinks/Week Comments No 0 (1 standard drink = 0.6 oz pur e alcohol) Sex and Gender Information Value Date Recorded Sex Assigned at Not on file Legal Sex Male 4:53 PM CONTACT PERSON Gender Identity Not on file Sexual Orientation Not on file Last Filed Vital Signs Vital Sign Reading Time Taken Comments Blood Pressure 110/70 04/06/2016 9:00 AM CONTACT PERSON Pulse 80 04/06/2016 9:00 AM CONTACT PERSON Temperature 36.2 C (97.2 F) 04/06/2016 9:00 AM CONTACT PERSON Respiratory Rate 16 04/06/2016 9:00 AM CONTACT PERSON Oxygen Saturation - - Inhaled Oxygen Concentration - - Weight 84.1 kg (185 lb 6 oz) 04/06/2016 9:00 AM CONTACT PERSON Height 182.9 cm (6') 04/06/2016 9:00 AM CONTACT PERSON Body Mass Index 25.14 04/06/2016 9:00 AM CONTACT PERSON Plan of Treatment Health Maintenance Due Date Last Done Comments HEPATITIS B VACCINES (1 of 3 - 19+ 3-dose series) 11/2002 HPV VACCINES (1 - 3-dose SCDM series) 2011 DTAP/TDAP/TD VACCINES (2 - Td or Tdap) 05/06/2021 INFLUENZA VACCINE (#1) 2024 Care Teams Aids Nurse Relationship Specialty Start Date End Date Gabriel Barth DO NO ADDRESS ON FILE PCP - General Family Practice 03/07/11
--- OUTSIDE RECORDS SUMMARY | 2025-01-17 15:05 | XMS_ITS | Encounter Summary ---
Author Organization [facility] Address [address] [place] [address] Care Team Providers Care Circus Hand Name Role Phone Gabriel Barth DO Primary Care Provider Unava ilable Encounter Details Date Type Department Care Team (Latest Contact Info) Description 07/25/2000 Outpatient Historical [facility] Medicine[address] [phone] Gabriel Barth DO NO ADDRESS ON FILE Allergic rhinitis, cause unspecified (Primary Dx) Social History Tobacco Use Types Packs/Day Years Used Date Smoking Tobacco: Never Assessed Sex and Gender Information Value Date Recorded Sex Assigned at Not on file 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
--- OUTSIDE RECORDS SUMMARY | 2025-01-17 15:05 | XMS_ITS | Encounter Summary ---
Author Organization [facility] Address [address] [place] [address] Care Team Providers Care Director Regulatory Agency Name Role Phone Gabriel Barth DO Primary Care Provider Unava ilable Encounter Details Date Type Department Care Team (Latest Contact Info) Description 12/21/1999 Outpatient Historical [facility] Medicine[address] [phone] Gabriel Barth DO NO ADDRESS ON FILE Allergic rhinitis, cause unspecified (Primary Dx) Social History Tobacco Use Types Packs/Day Years Used Date Smoking Tobacco: Never Assessed Sex and Gender Information Value Date Recorded Sex Assigned at Not on file 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
--- OUTSIDE RECORDS SUMMARY | 2025-01-17 15:05 | XMS_ITS | Encounter Summary ---
Author Organization [facility] Address [address] [place] [address] Care Team Providers Care Diesel Automotive Technician Name Role Phone Gabriel Barth DO Primary Care Provider Unava ilable Encounter Details Date Type Department Care Team (Latest Contact Info) Description 12/12/2001 Outpatient Historical [facility] Medicine[address] [phone] Gabriel Barth DO NO ADDRESS ON FILE SPRAIN OF ANKLE NOS (Primary Dx); VACCINE FOR TETANUS + DIPHTHERIA Social History Tobacco Use Types Packs/Day Years Used Date Smoking Tobacco: Never Assessed Sex and Gender Information Value Date Recorded Sex Assigned at Not on file 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
--- OUTSIDE RECORDS SUMMARY | 2025-01-17 15:05 | XMS_ITS | Encounter Summary ---
Author Organization [facility] Address [address] [place] [address] Care Team Providers Care Refrigeration Houseman Name Role Phone Gabriel Barth DO Primary Care Provider Unava ilable Encounter Details Date Type Department Care Team (Latest Contact Info) Description 11/13/2002 Outpatient Historical [address] [phone] Gabriel Barth DO NO ADDRESS ON FILE ACNE NEC (Primary Dx); BACTERIA DIS CARRIER,OTHR SPEC Social History Tobacco Use Types Packs/Day Years Used Date Smoking Tobacco: Never Assessed Sex and Gender Information Value Date Recorded Sex Assigned at Not on file Legal 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
--- OUTSIDE RECORDS SUMMARY | 2025-01-17 15:05 | XMS_ITS | Encounter Summary ---
Author Organization [facility] Address [address] [place] [address] Care Team Providers Care Certified Ski Patroller Name Role Phone Gabriel Barth DO Primary Care Provider Unava ilable Encounter Details Date Type Department Care Team (Latest Contact Info) Description 11/09/1999 Outpatient Historical [facility] Medicine[address] [phone] Gabriel Barth DO NO ADDRESS ON FILE Other general medical examination for administrative purposes (Primary Dx) Social History Tobacco Use Types Packs/Day Years Used Date Smoking Tobacco: Never Assessed Sex and Gender Information Value Date Recorded Sex Assigned at Not on file Legal Sex Male 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
--- OUTSIDE RECORDS SUMMARY | 2025-01-17 15:05 | XMS_ITS | Encounter Summary ---
Author Organization [facility] Address [address] [place] [address] Care Team Providers Care Director Clinical Research Name Role Phone Gabriel Barth DO Primary Care Provider Unava ilable Encounter Details Date Type Department Care Team (Latest Contact Info) Description 01/20/2000 Outpatient Historical [facility] Medicine- [address] [phone] Gabriel Barth DO NO ADDRESS ON FILE Allergic rhinitis, cause unspecified (Primary Dx) Social History Tobacco Use Types Packs/Day Years Used Date Smoking Tobacco: Never Assessed Sex and Gender Information Value Date Recorded Sex Assigned at Not on file 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
--- OUTSIDE RECORDS SUMMARY | 2025-01-17 15:05 | XMS_ITS | Encounter Summary ---
Author Organization [facility] Address [address] [place] [address] Care Team Providers Care Compress Machine Operator Name Role Phone Gabriel Barth DO Primary Care Provider Unava ilable Encounter Details Date Type Department Care Team (Latest Contact Info) Description 12/26/2001 Outpatient Historical [facility] Dermatology- [facility] [place] [address] [place] [phone] Silviano Morgan MD NO ADDRESS ON FILE VIRAL WARTS NOS (Primary Dx) Social History Tobacco Use Types Packs/Day Years Used Date Smoking Tobacco: Never Assessed Sex and Gender Information Value Date Recorded Sex Assigned at Not on file Legal Sex Male 3:48 AM BREWING TECHNICIAN Gender Identity Not on file Sexual Orientation Not on file documented as of this encounter Plan of Treatment Not on file documented as of this encounter Visit Diagnoses Diagnosis Viral warts, unspecified- Primary documented in this encounter Care Teams Compress Machine Operator Relationship Specialty Start Date End Date Gabriel Barth DO PCP - General Family Practice 03/07/11 documented as of this encounter
--- OUTSIDE RECORDS SUMMARY | 2025-01-17 15:05 | XMS_ITS | Encounter Summary ---
Author Organization [facility] Address [address] [place] [address] Care Team Providers Care Malt Liquors Sales Representative Name Role Phone Gabriel Barth DO Primary Care Provider Unava ilable Encounter Details Date Type Department Care Team (Latest Contact Info) Description 11/22/2000 Outpatient Historical [facility] Medicine[address] [phone] Gabriel Barth DO NO ADDRESS ON FILE Nausea alone (Primary Dx) Social History Tobacco Use Types Packs/Day Years Used Date Smoking Tobacco: Never Assessed Sex and Gender Information Value Date Recorded Sex Assigned at Not on file Legal 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
--- OUTSIDE RECORDS SUMMARY | 2025-01-17 15:05 | XMS_ITS | Encounter Summary ---
Author Organization [facility] Address [address] [place] [address] Care Team Providers Care Fiberglasser Name Role Phone Gabriel Barth DO Primary Care Provider Unava ilable Encounter Details Date Type Department Care Team (Latest Contact Info) Description 06/06/2000 Outpatient Historical [facility] Medicine[address] [phone] Gabriel Barth DO NO ADDRESS ON FILE Acute upper respiratory infections of unspecified site (Primary Dx); Acute pharyngitis Social History Tobacco Use Types Packs/Day Years Used Date Smoking Tobacco: Never Assessed Sex and Gender Information Value Date Recorded Sex Assigned at Not on file Legal 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
--- OUTSIDE RECORDS SUMMARY | 2025-01-17 15:05 | XMS_ITS | Encounter Summary ---
Author Organization [facility] Address [address] [place] [address] Care Team Providers Care Ethyl Blender Name Role Phone Gabriel Barth DO Primary Care Provider Unava ilable Encounter Details Date Type Department Care Team (Latest Contact Info) Description 01/26/2001 Outpatient Historical [facility] Medicine[address] [phone] Gabriel Barth DO NO ADDRESS ON FILE ACUTE PHARYNGITIS (Primary Dx) Social History Tobacco Use Types Packs/Day Years Used Date Smoking Tobacco: Never Assessed Sex and Gender Information Value Date Recorded Sex Assigned at Not on file 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
--- OUTSIDE RECORDS SUMMARY | 2025-01-17 15:06 | XMS_ITS | Encounter Summary ---
Author Organization [facility] Address [address] [place] [address] Care Team Providers Care Sweat Band Sewer Name Role Phone Gabriel Barth DO Primary Care Provider Unava ilable Encounter Details Date Type Department Care Team (Latest Contact Info) Description 08/04/1999 Outpatient Historical [facility] Medicine[address] [phone] Gabriel Barth DO NO ADDRESS ON FILE Allergic rhinitis, cause unspecified (Primary Dx) Social History Tobacco Use Types Packs/Day Years Used Date Smoking Tobacco: Never Assessed Sex and Gender Information Value Date Recorded Sex Assigned at Not on file 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
--- OUTSIDE RECORDS SUMMARY | 2025-01-17 15:06 | XMS_ITS | Clinical Summary ---
Author Organization [facility] Address [address] [place] [address] Phone Care Team Providers Care Parking Meter Installer Name Role Phone Osminmercy Gabriel Chaim GILLETTE Primary Care Provider Unava ilable Allergies No known active allergies Medications cloZAPine (CLOZARIL) 100 mg tablet Take 100 mg by mouth see administration instructions 250mg in AM and 300mg in PM . Active omeprazole (PriLOSEC) 40 mg Capsule, Delayed Release(E.C.) Take 40 mg by mouth daily. Active propranolol (INDERAL) 40 mg tablet Take 40 mg by mouth 2 times daily. Active glycopyrrolate (ROBINUL) 1 mg tablet Take 3 mg by mouth daily at bedtime. 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 Gender Identity Not on file Sexual Orientation Not on file Last Filed Vital Signs Vital Sign Reading Time Taken Comments Blood Pressure 110/70 04/06/2016 9:00 AM INTERN PRODUCT MARKETING MANAGER Pulse 80 04/06/2016 9:00 AM INTERN PRODUCT MARKETING MANAGER Temperature 36.2 C (97.2 F) 04/06/2016 9:00 AM INTERN PRODUCT MARKETING MANAGER Respiratory Rate 16 04/06/2016 9:00 AM INTERN PRODUCT MARKETING MANAGER Oxygen Saturation 98% 03/07/2011 1:50 AM INTERN PRODUCT MARKETING MANAGER Inhaled Oxygen Concentration - - Weight 84.1 kg (185 lb 6 oz) 04/06/2016 9:00 AM INTERN PRODUCT MARKETING MANAGER Height 182.9 cm (6') 04/06/2016 9:00 AM INTERN PRODUCT MARKETING MANAGER Body Mass Index 25.14 04/06/2016 9:00 AM INTERN PRODUCT MARKETING MANAGER Plan of Treatment Health Maintenance Due Date Last Done Comments HEPATITIS B VACCINES (1 of 3 - 19+ 3-dose series) 11/2002 HPV VACCINES (1 - 3-dose SCDM series) 2011 DTAP/TDAP/TD VACCINES (2 - Td or Tdap) 05/06/2021 INFLUENZA VACCINE (#1) 2024 Insurance MEDICAID [place] Care Teams Parking Meter Installer Relationship Specialty Start Date End Date Gabriel Barth DO PCP - General Family Practice 03/07/11
--- OUTSIDE RECORDS SUMMARY | 2025-01-17 15:06 | XMS_ITS | Encounter Summary ---
Author Organization [facility] Address [address] [place] [address] Care Team Providers Care Merchandise Worker Name Role Phone Gabriel Barth DO Primary Care Provider Unava ilable Encounter Details Date Type Department Care Team (Latest Contact Info) Description 08/18/1999 Outpatient Historical [facility] Medicine[address] [phone] Gabriel Barth DO NO ADDRESS ON FILE Allergic rhinitis, cause unspecified (Primary Dx) Social History Tobacco Use Types Packs/Day Years Used Date Smoking Tobacco: Never Assessed Sex and Gender Information Value Date Recorded Sex Assigned at Not on file Legal 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
--- OUTSIDE RECORDS SUMMARY | 2025-01-17 15:06 | XMS_ITS | Clinical Summary ---
Author Organization [facility] Address [address] [place] [address] Phone Care Team Providers Care Hedis Specialist Name Role Phone Unavailable Primary Care Provider Unavailabl e Social History Tobacco Use Types Packs/Day Years Used Date Smoking Tobacco: Never Assessed Sex and Gender Information Value Date Recorded Sex Assigned at Not on file Legal Sex Male 10:02 AM CDT Gender Identity Not on file Sexual Orientation Not on file Plan of Treatment Health Maintenance Due Date Last Done Comments Depression Screening 1996 Influenza Vaccine (#1) 2024
--- OUTSIDE RECORDS SUMMARY | 2025-01-17 15:06 | XMS_ITS | Encounter Summary ---
Author Organization [facility] Address [address] [place] [address] Care Team Providers Care Head Control Clerk Name Role Phone Gabriel Barth DO Primary Care Provider Unava ilable Encounter Details Date Type Department Care Team (Latest Contact Info) Description 11/10/1998 Outpatient Historical [facility] Medicine- [address] [phone] Gabriel Barth DO NO ADDRESS ON FILE Other general medical examination for administrative purposes (Primary Dx) Social History Tobacco Use Types Packs/Day Years Used Date Smoking Tobacco: Never Assessed Sex and Gender Information Value Date Recorded Sex Assigned at Not on file 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
--- NOTE | 2025-01-17 15:32 | PC.NURSE ---
pt unable to urinate at this time, given water. states will trya again. provided pt with urinal
--- NOTE | 2025-01-17 15:39 | PC.NURSE ---
Pt was read his 96 hour hold rights at this time. Security present
[2025-01-17 15:54] LABS: Hematocrit 45.6 % (37-53); Hemoglobin 16.10 g/dL (11.27-16.99); Mean Corpuscular HGB Conc 35.3 g/dL (30-55); Mean Corpuscular Hemoglobin 30.6 pg (27-33); Mean Corpuscular Volume 86.5 fl (82-101); Nucleated Red Blood Cells % 0 %; Platelet Count 260 10^3/cmm (157-399); Red Blood Count 5.27 10^6/uL (3.85-5.65); White Blood Count 8.71 10^3/uL (3.29-11.43)
--- NOTE | 2025-01-17 15:57 | PC.PHAR ---
pt was unable to verify last home medications he was taking. [facility] records show medications and last fill dates with day supply. Pt states he has not taken in awhile. Last filled in October so should have been out December 08 or so.
[2025-01-17 16:05] LABS: Alanine Aminotransferase 21 U/L (0-41); Albumin Level 4.4 g/dL (3.5-5.2); Alkaline Phosphatase 93 U/L (40-130); Anion Gap 16.4 (5-19); Aspartate Amino Transferase 23 U/L (0-40); Blood Urea Nitrogen 10 mg/dL (6-20); Calcium 9.4 mg/dL (8.5-10.5); Carbon Dioxide 27 mmol/L (22-29); Chloride 96 mmol/L (98-107); Globulin 3.1 g/dL (1.3-4.6); Glucose 100 mg/dL (65-115); Osmolality Calculated 281 mOsm/kg (285-295); Potassium 3.4 mmol/L (3.5-5.1); Sodium 136 mmol/L (136-145); Thyroid Stimulating Hormone 0.19 uIU/mL (0.27-4.20); Total Protein 7.5 g/dL (6.6-8.7)
[2025-01-17 16:10] LABS: Acetaminophen < 5.0 ug/mL (10-30); Alcohol Level < 10 mg/dL (0-10); Salicylate < 0.3 mg/dL (3-10)
[2025-01-17 16:28] VITALS: BP 100/54; PULSE 60; RESP 18; TEMP 37; O2SAT 98
--- NOTE | 2025-01-17 17:47 | ECG_ITS ---
[employer] Test Date: 2025-01-17 Pat Name: Navarro Ring Department: Room: 124 Gender: Male Car Examiner: : 1985 Requested By: Yvonne Brown Order Number: [id number] Dickens MD: Jovany Arredondo M.D. Measurements Intervals [place] Rate: 54 P: 56 NH: 166 QRS: 48 QRSD: 98 T: 66 QT: 429 QTc: 407 Interpretive Statements SINUS BRADYCARDIA Compared to ECG 07/30/2024 16:26:52 Sinus rhythm no longer present Atrial abnormality no longer present Incomplete right bundle-branch block no longer present Electronically Signed On 01-18-2025 15:24:55 CDT by Jovany Arredondo M.D. [email or web address]
[2025-01-17 20:17] VITALS: BP 138/83; PULSE 95; RESP 18; TEMP 36.7; O2SAT 95
--- NOTE | 2025-01-18 06:46 | PC.NURSE ---
pt refused vs, nurse notified, resp 16
[2025-01-18 14:00] VITALS: BP 136/75; PULSE 74; RESP 16; TEMP 36.9; O2SAT 97
--- NOTE | 2025-01-18 14:10 | W.PM.NPUH&PS ---
Providers/Chief Complaint Admitting Physician: Jay Adame MD Primary Care Provider: Robert Michel DO Chief Complaint: mhe HPI NPU History of Present Illness Navarro Ring is a 39 year old male with a history of schizophrenia along with cannabis abuse and methamphetamine abuse who presented to the emergency department with concerns about the patient's wellbeing. The patient had been arrested and placed on a 12-hour hold in a police facility and was released and found to be wandering around and confused on the streets. The patient had been admitted to the neuropsychiatric unit for further evaluation and treatment. The patient on interview stated that he did not need to be here but when questioned he literally became silent and refused to answer any further questions. The patient had been seen by his outpatient psychiatrist, Dr Simon last week for a routine visit and appeared to show evidence of disorganized thinking and indicated to his physician that he had been using methamphetamine that day and had been not adherent with his medication particularly his Clozaril. The patient had indicated last week that he had been feeling suspicious of others stating that they did not have his best interest in mind. He had appeared to nod his head in the affirmative when asked whether he felt that he was being watched or manipulated by others. 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 He did not report any significant changes since his last hospitalization nearly 6 months ago. Psychiatric history: multiple inpatient psychiatric hospitalizations, followed at [facility] by Dr. Simon, previous recent history of overdose on Clozaril. Current medications: Clozapine 100mg in am, 250mg at night, Celexa 20mg daily Medical history: none reported Allergies: nkda Social history: He lives alone in [place] per previous records. He is currently unemployed. Excerpt from NPU discharge summary from 08/03/24 Discharge Diagnosis (1) Schizophrenia: Status: Acute Qualifiers: Schizophrenia type: other Qualified Code(s): F20.89 - Other schizophrenia (2) Suicide attempt by adequate means: Status: Acute (3) Alcohol use disorder, severe, dependence: Status: Acute (4) Cannabis use disorder: Status: Acute (5) Hypertension: Status: Acute (6) Chain smoker: Status: Acute Reason for Visit overdose Brief History: History of Present Illness Navarro Ring is a 39 year old male recently discharged from the neuropsychiatric unit approximately 2-1/2 months ago who presented to the emergency department after admitting to overdose on 15 tablets of 100 mg of Clozaril. The patient had appeared confused and combative and was placed in restraints and ultimately placed on a 96-hour hold. He had spent 1 night in the intensive care unit and was seen today on the medical floor awaiting bed availability on the neuropsychiatric unit. The patient had reported that he had been stressed by his mother and girlfriend and stated that he had been tired of being told what to do. He reports that he often struggles with managing his stress at home stating that he had felt that his girlfriend and mother had unusually high expectations of him and he states that he had been extremely stressed out and decided to take the pills. He had reported that he is not currently suicidal. He denied any feelings of hopelessness or worthlessness. The patient had reported that he becomes depressed from time to time. He had continued to report alcohol use but minimized the significance of his use. He had also acknowledged intermittent use of methamphetamine but reported that he was not addicted to this. The patient's urine drug screen was positive for amphetamines on admission. He had reported no substantiative changes in his current situation with no changes in stressors since his last hospitalization 2 and half months ago. He had denied any paranoia, or auditory or visual hallucinations. He had reported no change in overall motivation. He had reported compliance with his current medication regimen. Patient had admitted to a significant amount of consumption of alcohol on a daily basis with no reports of alcohol related withdrawal symptoms. He had reported drinking approximately a pint of alcohol a day and reported last use of alcohol 2 to 3 days prior to admission. Current medications: Celexa 20 mg daily, Clozaril 50 mg in the morning and 100 mg at night, Eliquis Excerpt from NPU Discharge Summary from 05/21/24 Discharge Diagnosis (1) Alcohol use disorder, severe, dependence: Status: Acute (2) Schizophrenia: Status: Acute (3) Cannabis use disorder: Status: Acute (4) Hypertension: Status: Acute (5) Chain smoker: Status: Acute Reason for Visit SI Brief History: History of Present Illness Navarro Ring is a 39 year old male who presented to the emergency department with the following report: Chief Complaint: Psychiatric Symptoms Stated Complaint: SI Time Seen by Provider: 05/20/24 21:11 History of Present Illness: 39-year-old male patient with a history of schizophrenia and 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 He presents with worsening hallucinations, including visual, auditory and olfactory. He states he stopped taking his medicine a few days ago. He has been drinking alcohol instead. He has had up to 1 L of whiskey over the last 48 hours or so he says. He is currently not homicidal. He is currently not suicidal. He has had suicidal thoughts previously today though. He does not have a plan. He is here because he is seeking help with his psychiatric crisis .He was admitted to the neuropsychiatric unit for definitive treatment of those issues. He is known to [facility] through inpatient psychiatric services about 13 years ago and outpatient services mostly from that hospitalization forward. He presented with a UDS positive for amphetamines and cannabis as well as a blood alcohol of 228. He presented today reporting: Chief complaint Intoxication leading to hospitalization after family concern. History of the present complaint The patient reports a history of heavy alcohol use, which led to the current hospitalization. The patient became heavily intoxicated, prompting their mother to call for an ambulance. The patient has been drinking daily for years, consuming approximately 375 milliliters of Southern [employer]fort, equating to about 8 1/2 shots per day. The patient started drinking alcohol in April 2002, during their last semester of high school, and the consumption has progressively increased over time. The patient expresses a desire to stop drinking and acknowledges the need to move on from alcohol use. The patient has a long-standing history of mental health issues, including a diagnosis of schizophrenia prior to 2012, which was initially labeled as stress-induced. The patient experienced a psychotic break in 2007 while in graduate school, studying mathematics. Symptoms at that time included disorganized thoughts, visual hallucinations, and auditory hallucinations. The patient has been on various antipsychotic medications, including Clozapine, which has helped avoid hospitalizations since 2011, except for one in 2019. The patient has also been on citalopram and Eliquis but stopped taking these medications four to five days before the current encounter. The patient reports a history of depression, including feelings of hopelessness and worthlessness. The patient attempted suicide in 2019 after discontinuing medication for about a month. This period coincided with a significant personal stressor: the patient's grandmother, who had been a lifelong support, suffered a stroke in March 2019. The patient was responsible for her care until she was moved to a fdc, which the patient found very stressful and felt like a personal failure. The patient describes themselves as socially withdrawn and experiences anxiety, particularly in social situations. The patient reports feeling like an imposter in various aspects of life, contributing to their anxiety. The patient denies current suicidal ideation but acknowledges past experiences of severe depression and a suicide attempt. The patient has a family history of mental health issues, including depression, anxiety, schizophrenia, bipolar disorder, ADHD, autism, and PTSD. The patient's uncle, a [place] , has PTSD. The patient also mentions a possible mental illness in a paternal aunt, though details are unclear. The patient has been smoking cigarettes since 2004, consuming about a pack a day. The patient occasionally uses marijuana, which began in June 2002, but reports that it affects their memory of dreams. The patient denies using other drugs such as methamphetamine, opiates, or ecstasy and has never attended rehab or received drug and alcohol treatment. The patient has no history of legal issues related to substance use. The patient grew up in a challenging environment, with their mother being an alcoholic during their childhood. The patient lived with their grandparents from a young age, around 7 years old, due to their mother's alcoholism. The patient has a younger half-brother and a half-sister on their father's side, whom they have never met. The patient has never been and has no confirmed biological children, though there is a possibility of having a child from a past relationship. The patient is currently on disability and lives on property owned by their grandmother's trust. Mental health history Diagnosed with schizophrenia prior to 2012, initially labeled as stress-induced. Experienced a psychotic break in 2007 while in graduate school, studying mathematics, with symptoms including disorganized thoughts, visual and auditory hallucinations. Hospitalized in 2011 and 2019. Attempted suicide in 2019 after stopping medication for an extended period, coinciding with a personal crisis involving the care of his grandmother. Has been under psychiatric care for at least 13 years and has been on various medications, including Clozapine, citalopram, and previously Haldol. Reports feelings of depression, imposter syndrome, and social withdrawal. No current suicidal ideation. Family history includes mental illness on both maternal and paternal sides, with an uncle having PTSD. Social history Lives on grandmother's trust property. Has a history of alcohol use starting in April 2002, with daily consumption until hospitalization, typically 375 milliliters of Southern [place]fort. Smokes about a pack of cigarettes daily since 2004. Occasional cannabis use since June 2002. No history of drug and alcohol treatment or legal issues related to substance use. Lives with numerous pets, including approximately 20 beagles and 6 other pets. Currently on disability. 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 No history of marriage or biological children, though there is a potential child from a past relationship. Identifies as heterosexual. Has a brother 16 years younger and a half-sister on the father's side, whom he has never met. Lived with grandparents from around age 7 due to mother's alcoholism. Socially withdrawn and finds social interactions challenging. Hospital Course Hospital Course He acclimated to the individual, group and milieu therapies provided. He presented with active addiction and being off of his medication including Clozaril. He was challenged by the fact that in the situations things have gone fairly bad for him including suicide attempts when off medication and having psychotic thoughts. He was open to has restarting his medication without incident and with a positive response. He was not on a 96-hour hold and was very resistant to the idea of doing anything beyond getting his medication restarted and returning to his outpatient provider. We contacted his outpatient provider Dr. Simon and he reviewed the case and it was determined that the doctor was open to him being seen very quickly and continuing his management with him and not staying in the hospital any longer. He adjusted well to those medications. He worked with the treatment team to obtain appropriate follow-up and discharge planning. He had significant improvement and was able to contract for safety outside the hospital prior to discharge. The outside hospital, patient had routine laboratory studies which were within normal limits except for few outliers. Additionally there was a general medical evaluation which was also within normal limits and revealed no new acute processes. Discharge Summary: At the time of discharge, he denied psychosis or lethality. And his psychotic symptoms seem to be diminishing. Mood and anxiety were well managed. Patient endorsed a plan to avoid all drugs of abuse and follow-up with the aftercare recommendations of the treatment team. Patient was evaluated and deemed to be absent credible lethality, and had achieved the maximum benefit from an inpatient hospitalization, so was discharged. Hospital Course Hospital Course The patient was originally admitted to the intensive care unit after his overdose on Clozaril. He was eventually stabilized and transferred to the neuropsychiatric unit for further treatment. Medications were eventually resumed with no changes made. The patient was agreeable to continuing psychotherapy and was agreeable to consideration for further treatment regarding his substance abuse issues. During the hospitalization, the patient had routine laboratory studies which were within normal limits except for a few outliers.? Additionally, there was a general medical evaluation which was also within normal limits and revealed no new acute processes.? At the time of discharge, lethality was denied and psychosis was resolving.? Mood and anxiety were well managed.? The patient endorsed a plan to avoid all drugs of abuse and follow up with the aftercare recommendations of the treatment team.? The patient was evaluated and deemed to be absent credible lethality and had achieved the maximum benefit from an inpatient hospitalization, and so was discharged. ? Meds NPU Home Medications ?Medication ?Instructions ?Recorded ?Confirmed ?Last Taken ?Type naloxone 4 mg/actuation nasal 4 mg intranasal Q3M PRN opioid 09/13/24 01/17/25 Unknown Rx spray (Narcan) overdose #2 ea apixaban 2.5 mg tablet (Eliquis) 2.5 mg PO DAILY 01/17/25 01/17/25 Unknown History citalopram 20 mg tablet 20 mg PO DAILY 01/17/25 01/17/25 Unknown History clozapine 100 mg tablet See Rx Instructions .Route .COMPLEX 01/17/25 01/17/25 Unknown History Allergies Allergy/AdvReac Type Severity Reaction Status Date / Time environmental Allergy Unknown Unknown Uncoded 01/10/25 14:47 PFSH NPU PFSH: Medical History (Updated 01/17/25 @ 15:55 by Yvonne Santana MD) 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 No abnormal involuntary motor movements except for mild psychomotor retardation. He was minimally cooperative with exam in moderate distress. Speech was initially present and stopped as he was nonvocal. His mood was not endorsed. His affect was blunted. Thought process was difficult to assess as he was effectively nonverbal. Thought content: Patient did not endorse suicidal or homicidal ideation. There were no delusions reported or noted, he denied any auditory or visual hallucinations. He did appear to be responding to internal stimuli. Attention and concentration appeared impaired. He was alert and oriented to person and place only insight and judgment are poor. Impulse control is poor. Recent and remote memory were difficult to assess. Vitals/I&O/Wt Last Vital Signs Temp 98.0 F 01/17/25 20:17 Pulse 95 01/17/25 20:17 Resp 18 01/17/25 20:17 BP 138/83 01/17/25 20:17 Pulse Ox 95 01/17/25 20:17 O2 Del Method Room Air 01/17/25 20:17 Data NPU 01/17/25 15:13 01/17/25 15:13 A&P Assessment and plan 1. Chronic schizophrenia: 2. Acute psychosis: 3. Methamphetamine intoxication: Plan: This is a 39-year-old male continuing to decompensate over the last year with schizophrenia and now using methamphetamine more frequently currently noncompliant with Clozaril. #1.? Engage patient in individual milieu and group therapy. #2?? Recommend sober living treatment at the highest level of care to which the patient is willing to commit #3??? Restart clozaril at 100mg bid. Will contact Dr. Simon, outpatient provider. If patient refuses, will consider long acting medications. Patient remains here under 96 hour hold. ? #4?? TO-15 minute checks? #5?? Will attempt to gather collateral information PDMP PDMP Reviewed: Not Reviewed Involuntary Hold Information Hold Status: Legal Status: 96 Hour Hold Date/Time Hold Expires: 01/23/25@15:05 Attestations NPU Medical Necessity Statement*: Inpatient hospitalization is medically necessary and the clinically appropriate intervention at this time.Will transfer to NPU when bed is available. We will monitor medications and make changes as indicated. He will be in the hospital for over 2 midnights. Likely length of stay 7-10 days. Coding Level of Care Code Acute Code for Chg Fwd Diagnoses Chronic schizophrenia F20.9 Acute psychosis F23 Methamphetamine intoxication F15.929
[2025-01-18 20:34] VITALS: BP 130/84; PULSE 100; RESP 21; O2SAT 92
[2025-01-19 06:00] VITALS: BP 136/74; PULSE 65; RESP 18; O2SAT 98
--- NOTE | 2025-01-19 13:21 | P.NPUPN_ITS ---
Subjective NPU 2 Subjective: 39-year-old male with a history of schiz ophrenia on Clozaril admitted after an overdose on Clozaril with recent reports of continued alcohol use and intermittent use of methamphetamine. The patient was difficult to arouse this morning as he had hid underneath his sheet and remained nonverbal. He had taken his Clozaril last night as well as in the morning. He continued to isolate himself on the milieu. He had limited oral intake today per staff. He had not been communicating with staff and stayed in his room most of the day. Mental Status Exam 2 MSE Comments: This is a slender but well-developed white male in hospital scrubs with poor grooming and limited eye contact. He was hidden between the blankets and was minimally cooperative on interview. No abnormal involuntary motor movements except for mild psychomotor retardation. He was nonverbal. His mood was not endorsed. His affect was blunted. Thought process was difficult to assess as he was effectively nonverbal. Thought content: Patient did not endorse suicidal or homicidal ideation. There were no delusions reported or noted, he denied any auditory or visual hallucinations. He did not appear to be responding to internal stimuli. Attention and concentration appeared impaired. He was alert and oriented to person and place only insight and judgment are poor. Impulse control is poor. Recent and remote memory were difficult to assess. Vitals/I&O/Wt Last Vital Signs Temp 98.4 F 01/18/25 14:00 Pulse 65 01/19/25 06:00 Resp 18 01/19/25 06:00 BP 136/74 01/19/25 06:00 Pulse Ox 98 01/19/25 06:00 O2 Del Method Room Air 01/19/25 06:00 Data NPU 01/17/25 15:13 01/17/25 15:13 A&P Assessment and plan 1. Chronic schizophrenia: 2. Acute psychosis: 3. Methamphetamine intoxication: Plan: This is a 39-year-old male continuing to decompensate over the last year with schizophrenia and now using methamphetamine more frequently currently noncompliant with Clozaril. #1.? Engage patient in individual milieu and group therapy. #2?? Recommend sober living treatment at the highest level of care to which the patient is willing to commit #3???Continue clozaril at 100mg bid. Consider lety Hawkins. ?? #4?? TO-15 minute checks? #5?? Will attempt to gather collateral information PDMP PDMP Reviewed: Not Reviewed Involuntary Hold Information 2 Hold Status: Legal Status: 96 Hour Hold Date/Time Hold Expires: 01/23/25 @ 15:05 Attestations NPU 2 Medical Necessity Statement*: Inpatient hospitalization is medically necessary and the clinically appropriate intervention at this time.Will transfer to NPU when bed is available. We will monitor medications and make changes as indicated. The patient's likely length of stay is 7-10 days. Coding Level of Care Code Acute Code for Chg Fwd Diagnoses Chronic schizophrenia F20.9 Acute psychosis F23 Methamphetamine intoxication F15.929
[2025-01-19 13:48] VITALS: BP 143/83; PULSE 56; RESP 17; TEMP 36.6; O2SAT 100
[2025-01-19 20:10] VITALS: BP 150/92; PULSE 78; RESP 18; TEMP 36.8; O2SAT 94
[2025-01-20 02:15] VITALS: BMI 21.0
[2025-01-20 06:00] VITALS: BP 134/83; PULSE 70; RESP 17; TEMP 36.7; O2SAT 93
[2025-01-20] MEDS: APIXABAN 2.5 MG TABLET PO (08:22)
[2025-01-20 08:59] LABS: INR 0.87 (0.8-1.2); Prothrombin Time 12.50 SECONDS (12.1-14.9)
--- NOTE | 2025-01-20 16:17 | P.NPUPN_ITS ---
Subjective NPU 2 Subjective: 39-year-old male with a history of schiz ophrenia on Clozaril admitted after an overdose on Clozaril with recent reports of continued alcohol use and intermittent use of methamphetamine. The patient had not taken his Clozaril last night and had not slept at all throughout the night. He continued to state that he wanted to leave here and have a change in his situation. He had described having met a man on the street named Gage Barker who had been apparently trying to prevent the patient from being able to live comfortably. He had stated that he continued to feel that his problems were not due to his noncompliance with his medications. He had stated that he did not wish to be on any medications stating that the medications had actually made his problems worse. He had been agreeable to taking his Eliquis last night. He had denied any depression. Mental Status Exam 2 MSE Comments: This is a slender but well-developed tall white male in hospital scrubs with poor grooming and limited eye contact. He was somewhat guarded on interview but his speech was more productive with normal rate and prosody. His mood was not endorsed. His affect was blunted. His thought process was initially linear but derailed later. His thought content showed no evidence of suicidal or homicidal ideation but active paranoia and some level of grandiosity. He denied any thought broadcasting or thought insertion. There was evidence of ideas of reference. He did not appear to be responding to internal stimuli. Attention and concentration appeared impaired. He was alert and oriented to person, place and time. His insight and judgment are poor. Impulse control is poor. Recent and remote memory were selective and difficult to fully assess. Vitals/I&O/Wt Last Vital Signs Temp 98.1 F 01/20/25 06:00 Pulse 70 01/20/25 06:00 Resp 17 01/20/25 06:00 BP 134/83 01/20/25 06:00 Pulse Ox 93 01/20/25 06:00 O2 Del Method Room Air 01/19/25 20:10 Weight last 48 hrs Weight 70.42 kg Weight 70.42 kg Data NPU 01/17/25 15:13 01/17/25 15:13 A&P Assessment and plan 1. Chronic schizophrenia: 2. Acute psychosis: 3. Methamphetamine intoxication: Plan: This is a 39-year-old male continuing to decompensate over the last year with schizophrenia and now using methamphetamine more frequently currently noncompliant with Clozaril. #1.? Engage patient in individual milieu and group therapy. #2?? Recommend sober living treatment at the highest level of care to which the patient is willing to commit #3???Continue clozaril at 100mg bid. Consider abilifming [place]. ?? #4?? TO-15 minute checks? #5?? Will file for 21 day hold, patient under 96 hour hold but may require forced medications. PDMP PDMP Reviewed: Not Reviewed Involuntary Hold Information 2 Hold Status: Legal Status: 96 Hour Hold Date/Time Hold Expires: 01/23/25 @ 15:05 Attestations NPU 2 Medical Necessity Statement*: Inpatient hospitalization is medically necessary and the clinically appropriate intervention at this time.Will transfer to NPU when bed is available. We will monitor medications and make changes as indicated. The patient's likely length of stay is 7-10 days. Coding Level of Care Code Acute Code for g Fwd Diagnoses Chronic schizophrenia F20.9 Acute psychosis F23 Methamphetamine intoxication F15.929
[2025-01-20 20:25] VITALS: BP 135/87; PULSE 74; RESP 17; TEMP 37.1; O2SAT 96
--- NOTE | 2025-01-21 06:51 | PC.NURSE ---
vs not completed per charge nurse, resp 16
[2025-01-21] MEDS: APIXABAN 2.5 MG TABLET PO (10:53)
[2025-01-21 14:00] VITALS: BP 120/60; PULSE 76; RESP 16; TEMP 37; O2SAT 98
--- NOTE | 2025-01-21 16:23 | P.NPUPN_ITS ---
Subjective NPU 2 Subjective: 39-year-old male with a history of schiz ophrenia on Clozaril admitted after an overdose on Clozaril with recent reports of continued alcohol use and intermittent use of methamphetamine. The patient had been inconsistent with his oral intake of Clozaril. He had requested that another medication be considered to help him with his thoughts. He had minimized the use of methamphetamine at this time. He had apparently taken his nighttime Clozaril as well as his daytime Clozaril. He had continued to report concern about people somehow trying to influence him and reported feeling unsafe in his home situation. He was unable to describe the events that had led him to coming here in the hospital. Mental Status Exam 2 MSE Comments: This is a slender but well-developed tall white male in hospital scrubs with poor grooming and limited eye contact. He was somewhat guarded on interview but his speech was more productive with normal rate and prosody. His mood was described as tired. His affect was blunted. His thought process was more linear today. His thought content showed no evidence of suicidal or homicidal ideation but active paranoia and some level of grandiosity. He denied any thought broadcasting or thought insertion. There was evidence of ideas of reference. He did not appear to be responding to internal stimuli. Attention and concentration appeared impaired. He was alert and oriented to person, place and time. His insight and judgment are poor. Impulse control is poor. Recent and remote memory remained poor. Vitals/I&O/Wt Last Vital Signs Temp 98.6 F 01/21/25 14:00 Pulse 76 01/21/25 14:00 Resp 16 01/21/25 14:00 BP 120/60 01/21/25 14:00 Pulse Ox 98 01/21/25 14:00 O2 Del Method Room Air 01/20/25 20:25 Weight last 48 hrs Weight 70.42 kg Weight 70.42 kg Data NPU 01/17/25 15:13 01/17/25 15:13 A&P Assessment and plan 1. Chronic schizophrenia: 2. Acute psychosis: 3. Methamphetamine intoxication: Plan: This is a 39-year-old male continuing to decompensate over the last year with schizophrenia and now using methamphetamine more frequently currently noncompliant with Clozaril. #1.? Engage patient in individual milieu and group therapy. #2?? Recommend sober living treatment at the highest level of care to which the patient is willing to commit #3???Continue clozaril at 100mg bid. Will add oral abilify 10mg today and if tolerated, begin abilify IM Maintena. ?? #4?? TO-15 minute checks? #5?? Will file for 21 day hold today. Patient under 96 hour hold but may require forced medications. PDMP PDMP Reviewed: Not Reviewed Involuntary Hold Information 2 Hold Status: Legal Status: 96 Hour Hold Date/Time Hold Expires: 01/23/25 @ 15:05 Attestations NPU 2 Medical Necessity Statement*: Inpatient hospitalization is medically necessary and the clinically appropriate intervention at this time. We will monitor medications and make changes as indicated. The patient's likely length of stay is 7-10 days. Coding Level of Care Code Acute Code for [facility] Fwd Diagnoses Chronic schizophrenia F20.9 Acute psychosis F23 Methamphetamine intoxication F15.929
[2025-01-21 19:21] VITALS: BP 147/93; PULSE 90; RESP 18; TEMP 37.1; O2SAT 98
[2025-01-22 06:00] VITALS: BP 147/87; PULSE 102; RESP 18; TEMP 37.2; O2SAT 98
[2025-01-22] MEDS: APIXABAN 2.5 MG TABLET PO (08:16)
[2025-01-22 10:00] LABS: Clozapine Result <25 mcg/L; Norclozapine Results <25 mcg/L (25-400)
[2025-01-22 13:53] VITALS: BP 133/88; PULSE 120; RESP 18; TEMP 37.3; O2SAT 99
--- NOTE | 2025-01-22 15:07 | W.PM.NPUPNS ---
Subjective NPU Subjective: 39-year-old male with a history of schizophrenia on Clozaril admitted after an overdose on Clozaril with recent reports of continued alcohol use and intermittent use of methamphetamine. The patient had continued to report that he was tired of being in [facility]. He had struggled at times with refusing to take the medication and stated that taking Clozaril had been a burden to him on a regular basis. He had reported that it had made him sleepy. He had continued to remain somewhat hesitant about discussing the use of methamphetamine that had been described in an outpatient note. He continued at times to be paranoid and stated that he would rather talk in the dark and wanted to speak more privately. Mental Status Exam MSE Comments: This is a slender but well-developed tall white male in hospital scrubs with poor grooming and limited eye contact. He appeared hypervigilant. He was somewhat guarded on interview but his speech was more productive with normal rate and prosody. His mood was described as okay. His affect was blunted and mood incongruent. His thought process was more linear today. His thought content showed no evidence of suicidal or homicidal ideation but active paranoia and some level of grandiosity. He denied any thought broadcasting or thought insertion. There was evidence of ideas of reference. He did not appear to be responding to internal stimuli. Attention and concentration appeared impaired. He was alert and oriented to person, place and time. His insight and judgment are poor. Impulse control is poor. Recent and remote memory remained poor. Vitals/I&O/Wt Last Vital Signs Temp 99.1 F 01/22/25 13:53 Pulse 120 H 01/22/25 13:53 Resp 18 01/22/25 13:53 BP 133/88 01/22/25 13:53 Pulse Ox 99 01/22/25 13:53 O2 Del Method Room Air 01/22/25 13:53 Data NPU 01/17/25 15:13 01/17/25 15:13 A&P Assessment and plan 1. Chronic schizophrenia: 2. Acute psychosis: 3. Methamphetamine intoxication: Plan: This is a 39-year-old male continuing to decompensate over the last year with schizophrenia and now using methamphetamine more frequently currently noncompliant with Clozaril. #1.? Engage patient in individual milieu and group therapy. #2?? Recommend sober living treatment at the highest level of care to which the patient is willing to commit #3???Continue clozaril at 100mg bid. Continue abilify 10mg today and begin abilify IM Maintena. ?? #4?? TO-15 minute checks? #5?? Will file for 21 day hold today. Patient under 96 hour hold but may require forced medications. PDMP PDMP Reviewed: Not Reviewed Involuntary Hold Information Hold Status: Legal Status: 96 Hour Hold Date/Time Hold Expires: 01/23/25 @ 15:05 Attestations NPU Medical Necessity Statement*: Inpatient hospitalization is medically necessary and the clinically appropriate intervention at this time. We will monitor medications and make changes as indicated. The patient's likely length of stay is 7-10 days. Coding Level of Care Code Acute Code for Chg Fwd Diagnoses Chronic schizophrenia F20.9 Acute psychosis F23 Methamphetamine intoxication F15.929
--- NOTE | 2025-01-22 17:15 | PC.NURSE ---
Pt. was asked to take his medication. Pt. pondered on it a while staring at it saying he only wanted to take the necessary medication and that he was wasting every ones time including his own. Signee gave pt. many opportunities to take the medication and tried to encourage pt. to take it, but pt. refused to take the medication. Medication was properly wasted.
[2025-01-22 20:03] VITALS: BP 173/113; PULSE 84; RESP 16; TEMP 36.6; O2SAT 98
[2025-01-23 06:00] VITALS: BP 136/80; PULSE 84; RESP 18; TEMP 37; O2SAT 98
[2025-01-23] MEDS: APIXABAN 2.5 MG TABLET PO (09:10)
--- NOTE | 2025-01-23 10:50 | PC.NURSE ---
Pt's appointed opinion polls survey worker came on the unit to visit with pt before the court hearing. length of stay was 20 minutes.
--- NOTE | 2025-01-23 11:56 | PC.NURSE ---
Pt stated to this nurse that his mother could be added to the contact list and that she was able to receive pt updates.
[2025-01-23 13:54] VITALS: BP 168/104; PULSE 87; RESP 17; TEMP 36.8; O2SAT 96
--- NOTE | 2025-01-23 14:13 | PC.NURSE ---
Pt is off the unit as of 1404 to attend his 21 day hearing
--- NOTE | 2025-01-23 14:42 | PC.NURSE ---
Pt returned onto the unit at [address].
--- NOTE | 2025-01-23 15:54 | P.NPUPN_ITS ---
Subjective NPU 2 Subjective: 39-year-old male with a history of schiz ophrenia on Clozaril admitted after an overdose on Clozaril with recent reports of continued alcohol use and intermittent use of methamphetamine. The patient had reported feeling overly sedated on the Clazuril prior to this time. He was placed on a 21-day hold after a court hearing today. The patient had reported no side effects from his oral Abilify. He had refused the morning Clozaril. He had reported that he had not been sleeping well. He had continued to report that he was tired of living in his current situation at home and did not wish to return there. He remained somewhat unrevealing regarding the issues at home that had led to his hospitalization. He continued to require redirection and prompting for completion of activities of daily living. Mental Status Exam 2 MSE Comments: This is a well-developed tall white male in hospital scrubs with poor grooming and limited eye contact. He appeared easily startled. He was somewhat guarded on interview but his speech was more productive with normal rate and prosody but appeared to be whispering at times. His mood was described as okay. His affect was blunted and mood incongruent. His thought process was more linear today. His thought content showed no evidence of suicidal or homicidal ideation but active paranoia and some level of grandiosity. He denied any thought broadcasting or thought insertion. There was evidence of ideas of reference. He did appear to be responding to internal stimuli. Attention and concentration appeared impaired. He was alert and oriented to person, place and time. His insight and judgment are poor. Impulse control is poor. Recent and remote memory remained poor. Vitals/I&O/Wt Last Vital Signs Temp 98.3 F 01/23/25 13:54 Pulse 87 01/23/25 13:54 Resp 17 01/23/25 13:54 BP 168/104 01/23/25 13:54 Pulse Ox 96 01/23/25 13:54 O2 Del Method Room Air 01/23/25 06:00 Data NPU 01/17/25 15:13 01/17/25 15:13 A&P Assessment and plan 1. Chronic schizophrenia: 2. Acute psychosis: 3. Methamphetamine intoxication: Plan: This is a 39-year-old male continuing to decompensate over the last year with schizophrenia and now using methamphetamine more frequently currently noncompliant with Clozaril. #1.? Engage patient in individual milieu and group therapy. #2?? Recommend sober living treatment at the highest level of care to which the patient is willing to commit #3???Continue clozaril at 100mg bid. Continue abilify 10mg today and begin abilify IM Maintena 400mg when available today. ?? #4?? TO-15 minute checks? #5?? Patient now on 21 day hold. Continuing to refuse clozaril intermittently. PDMP PDMP Reviewed: Not Reviewed Involuntary Hold Information 2 Hold Status: Legal Status: 96 Hour Hold Date/Time Hold Expires: 02/13/2025 Attestations NPU 2 Medical Necessity Statement*: Inpatient hospitalization is medically necessary and the clinically appropriate intervention at this time. We will monitor medications and make changes as indicated. The patient's likely length of stay is 7-10 days. Coding Level of Care Code Acute Code for [facility] Fwd Diagnoses Chronic schizophrenia F20.9 Acute psychosis F23 Methamphetamine intoxication F15.929
[2025-01-23] MEDS: ARIPiprazole Maintena 400 MG IM (17:03)
--- NOTE | 2025-01-23 17:20 | PC.NURSE ---
Spoke with pt after he received his abilify injection. He voices not liking the clozaril because it makes him too sleepy. he wants all of his meds just simplified as possible. He states that he needs to be able to get them all in one spot due to money and limited resources.
[2025-01-23 20:08] VITALS: BP 145/90; PULSE 78; RESP 18; TEMP 37.1; O2SAT 100
[2025-01-24 06:00] VITALS: BP 145/76; PULSE 68; RESP 16; TEMP 36.7; O2SAT 99
[2025-01-24] MEDS: APIXABAN 2.5 MG TABLET PO (10:53)
--- NOTE | 2025-01-24 13:30 | P.NPUPN_ITS ---
Subjective NPU 2 Subjective: 39-year-old male with a history of schiz ophrenia admitted with disorganized behavior and disorganized speech. Patient continued to struggle with taking Clozaril in the morning. He had been relatively quiet and at times nearly nonverbal. He had required some prompting to complete activities of daily living. He had continued to complain about being excessively sedated on the Clozaril but was agreeable to the initiation of a new medication that was less sedating. He reported no side effects from the Abilify at this time. Mental Status Exam 2 MSE Comments: This is a well-developed tall white male in hospital scrubs with poor grooming and limited eye contact. He appeared easily startled lying in bed. He was somewhat guarded on interview but his speech was diminished in rate and volume. His mood was described as okay. His affect was blunted and mood incongruent. His thought process was more linear today. His thought content showed no evidence of suicidal or homicidal ideation but active paranoia and some level of grandiosity. There was a poverty of content appreciated. He denied any thought broadcasting or thought insertion. There was evidence of ideas of reference. He did appear to be responding to internal stimuli. Attention and concentration appeared impaired. He was alert and oriented to person, place and time. His insight and judgment are poor. Impulse control is poor. Recent and remote memory remained poor. Vitals/I&O/Wt Last Vital Signs Temp 98.1 F 01/24/25 06:00 Pulse 68 01/24/25 06:00 Resp 16 01/24/25 06:00 BP 145/76 01/24/25 06:00 Pulse Ox 99 01/24/25 06:00 O2 Del Method Room Air 01/24/25 06:00 Data NPU 01/17/25 15:13 01/17/25 15:13 A&P Assessment and plan 1. Chronic schizophrenia: 2. Acute psychosis: 3. Methamphetamine intoxication: Plan: This is a 39-year-old male continuing to decompensate over the last year with schizophrenia and now using methamphetamine more frequently currently noncompliant with Clozaril. #1.? Engage patient in individual milieu and group therapy. #2?? Recommend sober living treatment at the highest level of care to which the patient is willing to commit #3??Shift clozaril to 50mg in am, 150mg at night. Increase abilify to 15mg today and abilify IM Maintena 400mg given on 01/23/25. #4?? TO-15 minute checks? #5?? Patient now on 21 day hold. PDMP PDMP Reviewed: Not Reviewed Involuntary Hold Information 2 Hold Status: Legal Status: 96 Hour Hold Date/Time Hold Expires: 02/13/2025 Attestations NPU 2 Medical Necessity Statement*: Inpatient hospitalization is medically necessary and the clinically appropriate intervention at this time. We will monitor medications and make changes as indicated. The patient's likely length of stay is 7-10 days. Coding Level of Care Code Acute Code for g Fwd Diagnoses Chronic schizophrenia F20.9 Acute psychosis F23 Methamphetamine intoxication F15.929
[2025-01-24 14:00] VITALS: BP 142/92; PULSE 104; RESP 17; O2SAT 100
[2025-01-24 20:11] VITALS: BP 149/110; PULSE 109; RESP 18; TEMP 36.6; O2SAT 100
[2025-01-24 22:28] VITALS: BP 139/97; PULSE 111; RESP 18; TEMP 36.6; O2SAT 98
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
[2025-01-25 06:00] VITALS: BP 133/81; PULSE 77; RESP 16; TEMP 36.8; O2SAT 98
[2025-01-25] MEDS: APIXABAN 2.5 MG TABLET PO (08:09)
[2025-01-25 14:00] VITALS: BP 138/98; PULSE 106; RESP 18; TEMP 37.2; O2SAT 98
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
[2025-01-25 21:34] VITALS: BP 145/97; PULSE 100; RESP 18; TEMP 36.9; O2SAT 99
[2025-01-26 06:00] VITALS: BP 140/96; PULSE 100; RESP 17; TEMP 36.8; O2SAT 98
[2025-01-26] MEDS: APIXABAN 2.5 MG TABLET PO (08:50)
[2025-01-26 14:00] VITALS: BP 142/92; PULSE 108; RESP 18; TEMP 36.8; O2SAT 100
--- NOTE | 2025-01-26 15:39 | W.PM.NPUPNS ---
Subjective NPU Subjective: Patient presented today reporting that he is feeling fine overall but feeling under the weather. He was struggling to manage the energy of the unit reporting that people being agitated towards this appeals writer was making him fairly nervous. We discussed the fact that this appeals writer would be fine and that I am quite accustomed to people being angry with me or frustrated or wanting to go home and unhappy with my physician that they cannot. We discussed him continuing to take the medication and have the slow but steady improvement that we have seen. He denied any side effects to the medication. Mental Status Exam MSE Comments: This is a well-developed tall white male in hospital scrubs with poor grooming and limited eye contact. He appeared easily startled lying in bed. He was somewhat guarded on interview but his speech was diminished in rate and volume. His mood was described as okay. His affect was blunted and mood incongruent. His thought process was more linear today. His thought content showed no evidence of suicidal or homicidal ideation but active paranoia and some level of grandiosity. There was a poverty of content appreciated. He denied any thought broadcasting or thought insertion. There was evidence of ideas of reference. He did appear to be responding to internal stimuli. Attention and concentration appeared impaired. He was alert and oriented to person, place and time. His insight and judgment are poor. Impulse control is poor. Recent and remote memory remained poor. Vitals/I&O/Wt Last Vital Signs Temp 98.3 F 01/26/25 14:00 Pulse 108 H 01/26/25 14:00 Resp 18 01/26/25 14:00 BP 142/92 01/26/25 14:00 Pulse Ox 100 01/26/25 14:00 O2 Del Method Room Air 01/26/25 14:00 Data NPU 01/26/25 16:09 01/17/25 15:13 A&P Assessment and plan 1. Chronic schizophrenia: 2. Acute psychosis: 3. Methamphetamine intoxication: Plan: This is a 39-year-old male continuing to decompensate over the last year with schizophrenia and now using methamphetamine more frequently currently noncompliant with Clozaril. #1.? Engage patient in individual milieu and group therapy. #2?? Recommend sober living treatment at the highest level of care to which the patient is willing to commit #3??Shifted clozaril to 50mg in am, 150mg at night. Increase abilify to 15mg today and abilify IM Maintena 400mg given on 01/23/25. #4?? TO-15 minute checks? #5?? Patient now on 21 day hold. PDMP PDMP Reviewed: Not Reviewed Involuntary Hold Information Hold Status: Legal Status: 96 Hour Hold Date/Time Hold Expires: 02/13/2025 Attestations NPU Medical Necessity Statement*: Inpatient hospitalization is medically necessary and the clinically appropriate intervention at this time. We will monitor medications and make changes as indicated. The patient's likely length of stay is 6-9 days. Coding Level of Care Code Acute Code for [facility] Fwd Diagnoses Chronic schizophrenia F20.9 Acute psychosis F23 Methamphetamine intoxication F15.929
[2025-01-26 16:19] LABS: Hematocrit 44.8 % (37-53); Hemoglobin 15.50 g/dL (11.27-16.99); Mean Corpuscular HGB Conc 34.6 g/dL (30-55); Mean Corpuscular Hemoglobin 30.1 pg (27-33); Mean Corpuscular Volume 87.0 fl (82-101); Nucleated Red Blood Cells % 0 %; Platelet Count 248 10^3/cmm (157-399); Red Blood Count 5.15 10^6/uL (3.85-5.65); White Blood Count 7.19 10^3/uL (3.29-11.43)
[2025-01-26] MEDS: guaiFENesin-dextromethorphan UDC 10 mL PO (21:06)
[2025-01-26 21:44] VITALS: BP 148/94; PULSE 106; RESP 17; TEMP 37.1; O2SAT 99
--- NOTE | 2025-01-27 01:06 | PC.NURSE ---
15 minute rounding appears duplicate due to daylight savings from [id number]
[2025-01-27 06:00] VITALS: BP 155/104; PULSE 89; RESP 17; TEMP 36.5; O2SAT 100; BMI 21.3
[2025-01-27] MEDS: APIXABAN 2.5 MG TABLET PO (08:10)
[2025-01-27 14:00] VITALS: BP 156/90; PULSE 84; RESP 16; TEMP 37.1; O2SAT 99
--- NOTE | 2025-01-27 17:27 | P.NPUPN_ITS ---
Subjective NPU 2 Subjective: Better. He reports he is not feeling as much under the weather anymore. He discussed being hopeful that he could be discharged possibly at the end of the week. We discussed taking it a day at a time and looking at his previous Clozaril dose to see if there was likely a higher dose required previously for effective management. He denied any side effects to his medication. Mental Status Exam 2 MSE Comments: This is a well-developed tall white male in hospital scrubs with poor grooming and limited eye contact. He appeared easily startled lying in bed. He was somewhat guarded on interview but his speech was diminished in rate and volume. His mood was described as okay. His affect was blunted and mood incongruent. His thought process was more linear today. His thought content showed no evidence of suicidal or homicidal ideation but active paranoia and some level of grandiosity. There was a poverty of content appreciated. He denied any thought broadcasting or thought insertion. There was evidence of ideas of reference. He did appear to be responding to internal stimuli. Attention and concentration appeared impaired. He was alert and oriented to person, place and time. His insight and judgment are poor. Impulse control is poor. Recent and remote memory remained poor. Vitals/I&O/Wt Last Vital Signs Temp 97.6 F 01/27/25 21:17 Pulse 94 01/27/25 21:17 Resp 19 H 01/27/25 21:17 BP 145/96 01/27/25 21:17 Pulse Ox 98 01/27/25 21:17 O2 Del Method Room Air 01/27/25 21:17 Weight last 48 hrs Weight 71.271 kg Data NPU 01/26/25 16:09 01/17/25 15:13 A&P Assessment and plan 1. Chronic schizophrenia: 2. Acute psychosis: 3. Methamphetamine intoxication: Plan: This is a 39-year-old male continuing to decompensate over the last year with schizophrenia and now using methamphetamine more frequently currently noncompliant with Clozaril. #1.? Engage patient in individual milieu and group therapy. #2?? Recommend sober living treatment at the highest level of care to which the patient is willing to commit #3??Shifted clozaril to 50mg in am, 150mg at night. Increase abilify to 15mg today and abilify IM Maintena 400mg given on 01/23/25. Will likely increase Clozaril after determining what his previous effective dose was. #4?? TO-15 minute checks? #5?? Patient now on 21 day hold. PDMP PDMP Reviewed: Not Reviewed Involuntary Hold Information 2 Hold Status: Legal Status: 96 Hour Hold Date/Time Hold Expires: 02/13/2025 Attestations NPU 2 Medical Necessity Statement*: Inpatient hospitalization is medically necessary and the clinically appropriate intervention at this time. We will monitor medications and make changes as indicated. The patient's likely length of stay is 6-9 days. Coding Level of Care Code Acute Code for [facility] Fwd Diagnoses Chronic schizophrenia F20.9 Acute psychosis F23 Methamphetamine intoxication F15.929
[2025-01-27 21:17] VITALS: BP 145/96; PULSE 94; RESP 19; TEMP 36.4; O2SAT 98
[2025-01-28 06:00] VITALS: BP 133/94; PULSE 75; RESP 18; TEMP 37.2; O2SAT 98
[2025-01-28] MEDS: APIXABAN 2.5 MG TABLET PO (08:26)
[2025-01-28 14:00] VITALS: BP 154/116; PULSE 98; RESP 18; TEMP 37.1; O2SAT 99
[2025-01-28 14:41] VITALS: BP 155/120
--- NOTE | 2025-01-28 17:40 | PC.NURSE ---
Pt.'s BP was 155/[address] Ring informed. Dr. Ring to consult with medicine.
--- NOTE | 2025-01-28 18:29 | P.NPUPN_ITS ---
Subjective NPU 2 Subjective: Patient presented today reporting that he is doing better. He talked about his previous dosing of Clozaril and we discussed how things seem to be moving forward in an appropriate fashion. We discussed starting to get a understanding of his outpatient reality so that we can make sure that he is returning to a suitable situation given his challenges and his level of mental health disability given his schizophrenia. He denied any side effects to his medication. Mental Status Exam 2 MSE Comments: This is a well-nourished well-developed white male in hospital scrubs with improving grooming and eye contact. No abnormal movements except for mild psychomotor retardation that appears resolving. Cooperative with exam in mild distress. Speech was slightly decreased rate and volume. Mood described as better, affect less robotic and subdued. Thought process organized. Thought content: Patient denies suicidal or homicidal ideation, there were no delusions reported and resolving paranoia and grandiosity noted. He denied auditory or visual hallucinations. Attention and concentration were improving and memory appeared more reliable but none were formally tested. He is alert and oriented x 3. Insight and judgment are improving and impulse control is limited but improving. Vitals/I&O/Wt Last Vital Signs Temp 98.2 F 01/28/25 19:41 Pulse 97 01/28/25 19:41 Resp 18 01/28/25 19:41 BP 156/104 01/28/25 19:41 Pulse Ox 100 01/28/25 19:41 O2 Del Method Room Air 01/28/25 19:41 Data NPU 01/26/25 16:09 01/17/25 15:13 A&P Assessment and plan 1. Chronic schizophrenia: 2. Acute psychosis: 3. Methamphetamine intoxication: Plan: This is a 39-year-old male continuing to decompensate over the last year with schizophrenia and now using methamphetamine more frequently currently noncompliant with Clozaril. #1.? Engage patient in individual milieu and group therapy. #2?? Recommend sober living treatment at the highest level of care to which the patient is willing to commit #3??Shifted clozaril to 50mg in am, 150mg at night. Increase abilify to 15mg today and abilify IM Maintena 400mg given on 01/23/25. Will likely increase Clozaril after determining what his previous effective dose was. #4?? TO-15 minute checks? #5?? Patient now on 21 day hold. PDMP PDMP Reviewed: Not Reviewed Involuntary Hold Information 2 Hold Status: Legal Status: 21 Day Hold Date/Time Hold Expires: 21 day ^02/13/2025 Attestations NPU 2 Medical Necessity Statement*: Inpatient hospitalization is medically necessary and the clinically appropriate intervention at this time. We will monitor medications and make changes as indicated. The patient's likely length of stay is 5-7 days. Coding Level of Care Code Acute Code for Chg Fwd Diagnoses Chronic schizophrenia F20.9 Acute psychosis F23 Methamphetamine intoxication F15.929
[2025-01-28 19:41] VITALS: BP 156/104; PULSE 97; RESP 18; TEMP 36.8; O2SAT 100
[2025-01-29 06:00] VITALS: BP 153/101; PULSE 88; RESP 16; TEMP 36.4; O2SAT 100
[2025-01-29] MEDS: APIXABAN 2.5 MG TABLET PO (08:20)
[2025-01-29 12:42] VITALS: BP 149/97; PULSE 107; RESP 16; TEMP 36.8; O2SAT 100
--- NOTE | 2025-01-29 17:18 | P.NPUPN_ITS ---
Subjective NPU 2 Subjective: Patient presented today reporting that he is starting to feel more like himself. We discussed the likelihood of discharge by Tuesday and possibly in the next 48 hours. This made him happy with him reporting that he understands he really needs to maintain his medications if he is going to avoid a repeat of the situation. We discussed working with his outpatient team to make sure that we have supports in place to promote his success. He denied any side effects to the medication. Mental Status Exam 2 MSE Comments: This is a well-nourished well-developed white male in hospital scrubs with improving grooming and eye contact. No abnormal movements except for mild psychomotor retardation that appears resolving. Cooperative with exam in mild distress. Speech was slightly decreased rate and volume. Mood described as better, affect less robotic and subdued. Thought process organized. Thought content: Patient denies suicidal or homicidal ideation, there were no delusions reported and resolving paranoia and grandiosity noted. He denied auditory or visual hallucinations. Attention and concentration were improving and memory appeared more reliable but none were formally tested. He is alert and oriented x 3. Insight and judgment are improving and impulse control is limited but improving. Vitals/I&O/Wt Last Vital Signs Temp 98.6 F 01/29/25 20:30 Pulse 101 H 01/29/25 20:30 Resp 16 01/29/25 20:30 BP 148/96 01/29/25 20:30 Pulse Ox 98 01/29/25 20:30 O2 Del Method Room Air 01/29/25 20:30 Data NPU 01/26/25 16:09 01/17/25 15:13 A&P Assessment and plan 1. Chronic schizophrenia: 2. Acute psychosis: 3. Methamphetamine intoxication: Plan: This is a 39-year-old male continuing to decompensate over the last year with schizophrenia and now using methamphetamine more frequently currently noncompliant with Clozaril. #1.? Engage patient in individual milieu and group therapy. #2?? Recommend sober living treatment at the highest level of care to which the patient is willing to commit #3??Shifted clozaril to 50mg in am, 150mg at night. Increase abilify to 15mg today and abilify IM Maintena 400mg given on 01/23/25. Will likely increase Clozaril after determining what his previous effective dose was. #4?? TO-15 minute checks? #5?? Patient now on 21 day hold. PDMP PDMP Reviewed: Not Reviewed Involuntary Hold Information 2 Hold Status: Legal Status: 21 Day Hold Date/Time Hold Expires: ^02/13/2025 Attestations NPU 2 Medical Necessity Statement*: Inpatient hospitalization is medically necessary and the clinically appropriate intervention at this time. We will monitor medications and make changes as indicated. The patient's likely length of stay is 2-4 days. Coding Level of Care Code Acute Code for Chg Fwd Diagnoses Chronic schizophrenia F20.9 Acute psychosis F23 Methamphetamine intoxication F15.929
[2025-01-29 20:30] VITALS: BP 148/96; PULSE 101; RESP 16; TEMP 37; O2SAT 98
[2025-01-30 06:00] VITALS: BP 134/71; PULSE 112; RESP 16; TEMP 37; O2SAT 96
[2025-01-30] MEDS: APIXABAN 2.5 MG TABLET PO (08:38)
--- NOTE | 2025-01-30 11:07 | P.NPUPN_ITS ---
Subjective NPU 2 Subjective: Patient presented today reporting that things are all right. He endorsed appreciating that he is getting better and not having any challenges. There is some question about his living arrangement and we agreed that we would clarify some issues and in the event that he does have a safe place to go without any concerns we discussed the tentative plan for discharge tomorrow but plan to do it for short the next 48 hours. He denied any side effects to his medications. Mental Status Exam 2 MSE Comments: This is a well-nourished well-developed white male in hospital scrubs with improving grooming and eye contact. No abnormal movements except for mild psychomotor retardation that appears resolving. Cooperative with exam in mild distress. Speech was slightly decreased rate and volume. Mood described as better, affect less robotic and subdued. Thought process organized. Thought content: Patient denies suicidal or homicidal ideation, there were no delusions reported and resolving paranoia and grandiosity noted. He denied auditory or visual hallucinations. Attention and concentration were improving and memory appeared more reliable but none were formally tested. He is alert and oriented x 3. Insight and judgment are improving and impulse control is limited but improving. Vitals/I&O/Wt Last Vital Signs Temp 98.6 F 01/30/25 06:00 Pulse 112 H 01/30/25 06:00 Resp 16 01/30/25 06:00 BP 134/71 01/30/25 06:00 Pulse Ox 96 01/30/25 06:00 O2 Del Method Room Air 01/30/25 06:00 Data NPU 01/26/25 16:09 01/17/25 15:13 A&P Assessment and plan 1. Chronic schizophrenia: 2. Acute psychosis: 3. Methamphetamine intoxication: Plan: This is a 39-year-old male continuing to decompensate over the last year with schizophrenia and now using methamphetamine more frequently currently noncompliant with Clozaril. #1.? Engage patient in individual milieu and group therapy. #2?? Recommend sober living treatment at the highest level of care to which the patient is willing to commit #3??Shifted clozaril to 50mg in am, 150mg at night. Increase abilify to 15mg today and abilify IM Maintena 400mg given on 01/23/25. Will likely increase Clozaril after determining what his previous effective dose was. #4?? TO-15 minute checks? #5?? Patient now on 21 day hold. PDMP PDMP Reviewed: Not Reviewed Involuntary Hold Information 2 Hold Status: Legal Status: 21 Day Hold Date/Time Hold Expires: ^02/13/2025 Attestations NPU 2 Medical Necessity Statement*: Inpatient hospitalization is medically necessary and the clinically appropriate intervention at this time. We will monitor medications and make changes as indicated. The patient's likely length of stay is 1-3 days. Coding Level of Care Code Acute Code for Chg Fwd Diagnoses Chronic schizophrenia F20.9 Acute psychosis F23 Methamphetamine intoxication F15.929
[2025-01-30 14:00] VITALS: BP 161/105; PULSE 113; RESP 16; TEMP 37.4; O2SAT 99
[2025-01-30 20:16] VITALS: BP 148/104; PULSE 104; RESP 17; TEMP 37.1; O2SAT 99
[2025-01-31 06:00] VITALS: BP 131/92; PULSE 99; RESP 17; TEMP 37.2; O2SAT 99
[2025-01-31] MEDS: APIXABAN 2.5 MG TABLET PO (08:10)
--- NOTE | 2025-01-31 11:33 | P.NPUDS_ITS ---
Diagnoses at Discharge Discharge Diagnosis 1. Chronic schizophrenia: 2. Acute psychosis: 3. Methamphetamine intoxication: Reason for Visit Reason for Visit: mhe Brief History: HPI NPU History of Present Illness Navarro Ring is a 39 year old male with a history of schizophrenia along with cannabis abuse and methamphetamine abuse who presented to the emergency department with concerns about the patient's wellbeing. The patient had been arrested and placed on a 12-hour hold in a police facility and was released and found to be wandering around and confused on the streets. The patient had been admitted to the neuropsychiatric unit for further evaluation and treatment. The patient on interview stated that he did not need to be here but when questioned he literally became silent and refused to answer any further questions. The patient had been seen by his outpatient psychiatrist, Dr Simon last week for a routine visit and appeared to show evidence of disorganized thinking and indicated to his physician that he had been using methamphetamine that day and had been not adherent with his medication particularly his Clozaril. The patient had indicated last week that he had been feeling suspicious of others stating that they did not have his best interest in mind. He had appeared to nod his head in the affirmative when asked whether he felt that he was being watched or manipulated by others. 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 He did not report any significant changes since his last hospitalization nearly 6 months ago. Psychiatric history: multiple inpatient psychiatric hospitalizations, followed at [facility] [place] by Dr. Simon, previous recent history of overdose on Clozaril. Current medications: Clozapine 100mg in am, 250mg at night, Celexa 20mg daily Medical history: none reported Allergies: nkda Social history: He lives alone in [place] per previous records. He is currently unemployed. Excerpt from NPU discharge summary from 08/03/24 Discharge Diagnosis (1) Schizophrenia: Status: Acute Qualifiers: Schizophrenia type: other Qualified Code(s): F20.89 - Other schizophrenia (2) Suicide attempt by adequate means: Status: Acute (3) Alcohol use disorder, severe, depend ence: Status: Acute (4) Cannabis use disorder: Status: Acute (5) Hypertension: Status: Acute (6) Chain smoker: Status: Acute Reason for Visit overdose Brief History: History of Present Illness Navarro Ring is a 39 year old male recently discharged from the neuropsychiatric unit approximately 2-1/2 months ago who presented to the emergency department after admitting to overdose on 15 tablets of 100 mg of Clozaril. The patient had appeared confused and combative and was placed in restraints and ultimately placed on a 96-hour hold. He had spent 1 night in the intensive care unit and was seen today on the medical floor awaiting bed availability on the neuropsychiatric unit. The patient had reported that he had been stressed by his mother and girlfriend and stated that he had been tired of being told what to do. He reports that he often struggles with managing his stress at home stating that he had felt that his girlfriend and mother had unusually high expectations of him and he states that he had been extremely stressed out and decided to take the pills. He had reported that he is not currently suicidal. He denied any feelings of hopelessness or worthlessness. The patient had reported that he becomes depressed from time to time. He had continued to report alcohol use but minimized the significance of his use. He had also acknowledged intermittent use of methamphetamine but reported that he was not addicted to this. The patient's urine drug screen was positive for amphetamines on admission. He had reported no substantiative changes in his current situation with no changes in stressors since his last hospitalization 2 and half months ago. He had denied any paranoia, or auditory or visual hallucinations. He had reported no change in overall motivation. He had reported compliance with his current medication regimen. Patient had admitted to a significant amount of consumption of alcohol on a daily basis with no reports of alcohol related withdrawal symptoms. He had reported drinking approximately a pint of alcohol a day and reported last use of alcohol 2 to 3 days prior to admission. Current medications: Celexa 20 mg daily, Clozaril 50 mg in the morning and 100 mg at night, Eliquis Excerpt from NPU Discharge Summary from 05/21/24 Discharge Diagnosis (1) Alcohol use disorder, severe, depend ence: Status: Acute (2) Schizophrenia: Status: Acute (3) Cannabis use disorder: Status: Acute (4) Hypertension: Status: Acute (5) Chain smoker: Status: Acute Reason for Visit SI Brief History: History of Present Illness Navarro Ring is a 39 year old male who presented to the emergency department with the following report: Chief Complaint: Psychiatric Symptoms Stated Complaint: SI Time Seen by Provider: 05/20/24 21:11 History of Present Illness: 39-year-old male patient with a history of schizophrenia and 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 He presents with worsening hallucinations, including visual, auditory and olfactory. He states he stopped taking his medicine a few days ago. He has been drinking alcohol instead. He has had up to 1 L of whiskey over the last 48 hours or so he says. He is currently not homicidal. He is currently not suicidal. He has had suicidal thoughts previously today though. He does not have a plan. He is here because he is seeking help with his psychiatric crisis .He was admitted to the neuropsychiatric unit for definitive treatment of those issues. He is known to [facility] through inpatient psychiatric services about 13 years ago and outpatient services mostly from that hospitalization forward. He presented with a UDS positive for amphetamines and cannabis as well as a blood alcohol of 228. He presented today reporting: Chief complaint Intoxication leading to hospitalization after family concern. History of the present complaint The patient reports a history of heavy alcohol use, which led to the current hospitalization. The patient became heavily intoxicated, prompting their mother to call for an ambulance. The patient has been drinking daily for years, consuming approximately 375 milliliters of [place], equating to about 8 1/2 shots per day. The patient started drinking alcohol in April 2002, during their last semester of high school, and the consumption has progressively increased over time. The patient expresses a desire to stop drinking and acknowledges the need to move on from alcohol use. The patient has a long-standing history of mental health issues, including a diagnosis of schizophrenia prior to 2012, which was initially labeled as stress- induced. The patient experienced a psychotic break in 2007 while in graduate school, studying mathematics. Symptoms at that time included disorganized thoughts, visual hallucinations, and auditory hallucinations. The patient has been on various antipsychotic medications, including Clozapine, which has helped avoid hospitalizations since 2011, except for one in 2019. The patient has also been on citalopram and Eliquis but stopped taking these medications four to five days before the current encounter. The patient reports a history of depression, including feelings of hopelessness and worthlessness. The patient attempted suicide in 2019 after discontinuing medication for about a month. This period coincided with a significant personal stressor: the patient's grandmother, who had been a lifelong support, suffered a stroke in March 2019. The patient was responsible for her care until she was moved to a jail, which the patient found very stressful and felt like a personal failure. The patient describes themselves as socially withdrawn and experiences anxiety, particularly in social situations. The patient reports feeling like an imposter in various aspects of life, contributing to their anxiety. The patient denies current suicidal ideation but acknowledges past experiences of severe depression and a suicide attempt. The patient has a family history of mental health issues, including depression, anxiety, schizophrenia, bipolar disorder, ADHD, autism, and PTSD. The patient's uncle, a [place] , has PTSD. The patient also mentions a possible mental illness in a paternal aunt, though details are unclear. The patient has been smoking cigarettes since 2004, consuming about a pack a day. The patient occasionally uses marijuana, which began in June 2002, but reports that it affects their memory of dreams. The patient denies using other drugs such as methamphetamine, opiates, or ecstasy and has never attended rehab or received drug and alcohol treatment. The patient has no history of legal issues related to substance use. The patient grew up in a challenging environment, with their mother being an alcoholic during their childhood. The patient lived with their grandparents from a young age, around 7 years old, due to their mother's alcoholism. The patient has a younger half-brother and a half-sister on their father's side, whom they have never met. The patient has never been and has no confirmed biological children, though there is a possibility of having a child from a past relationship. The patient is currently on disability and lives on property owned by their grandmother's trust. Mental health history Diagnosed with schizophrenia prior to 2012, initially labeled as stress-induced. Experienced a psychotic break in 2007 while in graduate school, studying mathematics, with symptoms including disorganized thoughts, visual and auditory hallucinations. Hospitalized in 2011 and 2019. Attempted suicide in 2019 after stopping medication for an extended period, coinciding with a personal crisis involving the care of his grandmother. Has been under psychiatric care for at least 13 years and has been on various medications, including Clozapine, citalopram, and previously Haldol. Reports feelings of depression, imposter syndrome, and social withdrawal. No current suicidal ideation. Family history includes mental illness on both maternal and paternal sides, with an uncle having PTSD. Social history Lives on grandmother's trust property. Has a history of alcohol use starting in April 2002, with daily consumption until hospitalization, typically 375 milliliters of [place]fort. Smokes about a pack of cigarettes daily since 2004. Occasional cannabis use since June 2002. No history of drug and alcohol treatment or legal issues related to substance use. Lives with numerous pets, including approximately 20 beagles and 6 other pets. Currently on disability. 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 No history of marriage or biological children, though there is a potential child from a past relationship. Identifies as heterosexual. Has a brother 16 years younger and a half-sister on the father's side, whom he has never met. Lived with grandparents from around age 7 due to mother's alcoholism. Socially withdrawn and finds social interactions challenging. Hospital Course Hospital Course He slowly acclimated to the individual, group and milieu therapies provided. He presented with confusion and psychosis with a history of addiction being positive for amphetamines at his last hospitalization in July and being off of his medication including Clozaril. There was not a drug screen done during the hospitalization so it is unclear if his addiction played a role in the situation. He was open to has restarting his medication without incident. He was on a 96-hour hold which became a 21-day hold. The absence of any drugs of abuse, restarting his medication including the Clozaril, having access to as needed medication and being in the treatment milieu led to a positive response. He adjusted well to those medications. He worked with the social work team team to obtain appropriate follow-up and discharge planning. He had significant improvement and was able to contract for safety outside the hospital prior to discharge. The outside hospital, patient had routine laboratory studies which were within normal limits except for few outliers. Additionally there was a general medical evaluation which was also within normal limits and revealed no n ew acute processes. Discharge Summary: At the time of discharge, he denied psychosis or lethality and his psychotic symptoms improved. Mood and anxiety were well managed. Patient endorsed a plan to avoid all drugs of abuse and follow-up with the aftercare recommendations of the treatment team. Patient was evaluated and deemed to be absent credible lethality, and had achieved the maximum benefit from an inpatient hospitalization, so was discharged. Involuntary Hold Information Hold Status: Legal Status: 21 Day Hold Date/Time Hold Expires: 21 ^02/13/2025 Mental Status Exam MSE Comments: This is a well-nourished well-developed white male in hospital scrubs with improving grooming and eye contact. No abnormal movements except for mild psychomotor retardation that appears resolving. Cooperative with exam in mild distress. Speech was slightly decreased rate and volume. Mood described as better, affect less robotic and subdued. Thought process organized. Thought content: Patient denies suicidal or homicidal ideation, there were no delusions reported and resolving paranoia and grandiosity noted. He denied auditory or visual hallucinations. Attention and concentration were improving and memory appeared more reliable but none were formally tested. He is alert and oriented x 3. Insight and judgment are improving and impulse control is limited but impr oving. Discharge Data Studies Completed and Pending: Pending at discharge Category Date Time Status CBC Auto Diff [Co mplete Blood Count w/Auto] Routine Lab 02/02/25 15:00 Ordered Laboratory Results WBC 7.19 10^3/uL (3.2 9-11.43) 01/26/25 16:09 RBC 5.15 10^6/uL (3.8 5-5.65) 01/26/25 16:09 Hgb 15.50 g/dL (11.27 -16.99) 01/26/25 16:09 Hct 44.8 % (37-53) 01/26/25 16:09 MCV 87.0 fl (82-101) 01/26/25 16:09 MCH 30.1 pg (27-33) 01/26/25 16:09 MCHC 34.6 g/dL (30-55) 01/26/25 16:09 RDW 13.0 % (12.1-15.1 ) 01/26/25 16:09 Plt Count 248 10^3/cmm (157 -399) 01/26/25 16:09 MPV 9.0 fL (7.4-10.4) 01/26/25 16:09 Neut % (Auto) 56.8 % 01/26/25 16:09 Lymph % (Auto) 31.7 % 01/26/25 16:09 [place] % (Auto) 7.9 % 01/26/25 16:09 Eos % (Auto) 2.5 % 01/26/25 16:09 Baso % (Auto) 0.7 % 01/26/25 16:09 Neut # (Auto) 4.08 10^3/uL (1.8 -7.7) 01/26/25 16:09 Lymph # (Auto) 2.3 10^3/uL (0.8- 4.8) 01/26/25 16:09 [place] # (Auto) 0.6 10^3/uL (0.2- 0.9) 01/26/25 16:09 Eos # (Auto) 0.2 10^3/uL (0.0- 0.8) 01/26/25 16:09 Baso # (Auto) 0.1 10^3/uL (0.0- 0.1) 01/26/25 16:09 Nucleated RBC % (a uto) 0 % 01/26/25 16:09 Nucleated RBCs # 0.0 /100WBC 01/26/25 16:09 PT 12.50 SECONDS (12 .1-14.9) 01/20/25 08:35 INR 0.87 (0.8-1.2) 01/20/25 08:35 Sodium 136 mmol/L (136-1 45) 01/17/25 15:13 Potassium 3.4 mmol/L (3.5-5 .1) L 01/17/25 15:13 Chloride 96 mmol/L (98-107 ) L 01/17/25 15:13 Carbon Dioxide 27 mmol/L (22-29) 01/17/25 15:13 Anion Gap 16.4 (5-19) 01/17/25 15:13 BUN 10 mg/dL (6-20) 01/17/25 15:13 Creatinine 0.7 mg/dL (0.7-1. 2) 01/17/25 15:13 GFR Calculation 124.9 mL/min (90- 130) 01/17/25 15:13 Glucose 100 mg/dL (65-115 ) 01/17/25 15:13 Calculated Osmolal ity 281 mOsm/kg (285- 295) L 01/17/25 15:13 Calcium 9.4 mg/dL (8.5-10 .5) 01/17/25 15:13 Total Bilirubin 0.6 mg/dL (0.15-1 .2) 01/17/25 15:13 AST 23 U/L (0-40) 01/17/25 15:13 ALT 21 U/L (0-41) 01/17/25 15:13 Alkaline Phosphata se 93 U/L (40-130) 01/17/25 15:13 Total Protein 7.5 g/dL (6.6-8.7 ) 01/17/25 15:13 Albumin 4.4 g/dL (3.5-5.2 ) 01/17/25 15:13 Globulin 3.1 g/dL (1.3-4.6 ) 01/17/25 15:13 TSH 0.19 uIU/mL (0.27 -4.20) L 01/17/25 15:13 Salicylates < 0.3 mg/dL (3-10 ) L 01/17/25 15:13 Acetaminophen < 5.0 ug/mL (10-3 0) L 01/17/25 15:13 Clozapine <25 mcg/L 01/17/25 15:13 Norclozapine <25 mcg/L (25-400 ) L 01/17/25 15:13 Ethyl Alcohol < 10 mg/dL (0-10) 01/17/25 15:13 Vitals: Last Vital Signs Temp 99.0 F 01/31/25 06:00 Pulse 99 01/31/25 06:00 Resp 17 01/31/25 06:00 BP 131/92 01/31/25 06:00 Pulse Ox 99 01/31/25 06:00 O2 Del Method Room Air 01/31/25 06:00 Discharge Plan Discharge Patient Disposition: Home Condition: Stable Prescriptions: Continued naloxone [Narcan] 4 mg/actuation spray,non-aerosol 4 mg intranasal Q3M PRN (Reason: opioid overdose) Qty: 2 0RF Rx Instructions: spray 1 dose into ONE nostril; alternate nostrils w each dose until help arrives Eliquis 2.5 mg tablet 2.5 mg PO DAILY 30 Days Qty: 30 1RF Discontinued clozapine 100 mg tablet See Rx Instructions .ROUTE .COMPLEX Rx Instructions: TAKE ONE TABLET IN THE MORNING AND TWO TABLETS AT NIGHT. citalopram 20 mg tablet 20 mg PO DAILY No Action clozapine 100 mg tablet See Rx Instructions PO .COMPLEX Qty: 90 11RF Rx Instructions: Take one tab in the morning and 2 tabs at night. clozapine 50 mg tablet 50 mg PO .qhs Qty: 30 11RF Discharge Order = DC NOW: Discharge Order (Routine); Ordered 01/31/25 Ordered By: John Ring Referrals: Robert Michel DO [Primary Care Provider, Family Practice] - 02/07/25 1:15 pm Referral Note: Follow up Partha Simon DO [Staff Physician, Psychiatry] - 02/06/25 2:15 pm Referral Note: Follow up Discharge Diet: Regular Discharge Activity: Resume usual activity Patient Instructions: Clozapine (By mouth), Aripiprazole (By mouth), Schizophrenia (DC), Opioid Safety, Patient Portal & [facility] Instructions Discharge Attestations NPU Time Spent in Discharge Care*: less than 30 min Specific Discharge Activities: Specific discharge activities: educating patient, discussing with employment case manager/social workers/dc planners, documenting/other paperwork and evaluating patient/reviewing data Coding Level of Care Code Acute Code for Chg Fwd Diagnoses Chronic schizophrenia F20.9 Acute psychosis F23 Methamphetamine intoxication F15.929
[2025-01-31 13:03] VITALS: BP 155/100; PULSE 109; RESP 16; TEMP 36.9; O2SAT 98
== END 2025-01-31 14:42 | disposition home or self-care (01) | DRG 750 ==
LOC: ER 15:55 → NP 16:05
PROVIDERS: Psychiatry & Neurology Psychiatry; Admitting Provider Psychiatry & Neurology Psychiatry; Emergency Provider Emergency Medicine; PCP Family Medicine; Visit Provider Psychiatry & Neurology Psychiatry
DX: F20.9 Schizophrenia, unspecified (principal); G61.81 Chronic inflammatory demyelinating polyneuritis; Z91.148 Patient's other noncompliance with medication regimen for other reason; Z79.01 Long term (current) use of anticoagulants; F15.129 Other stimulant abuse with intoxication, unspecified; Y90.0 Blood alcohol level of less than 20 mg/100 ml; Z86.718 Personal history of other venous thrombosis and embolism; Z81.8 Family history of other mental and behavioral disorders; F17.210 Nicotine dependence, cigarettes, uncomplicated; Z91.51 Personal history of suicidal behavior; F10.20 Alcohol dependence, uncomplicated; I10 Essential (primary) hypertension; F41.9 Anxiety disorder, unspecified; F12.10 Cannabis abuse, uncomplicated
CPT/HCPCS: 36415; 80053; 80159; 80307; 84443; 85025; 85610; 93005; 96372; 97150; 97165; 99285; J9999

== ENCOUNTER → 2025-02-26 14:18 | Outpatient (BNVA) | payer OTHER, SELFPAY ==
[2024-03-19 14:44] VITALS: BP 145/88
[2024-03-19 14:46] VITALS: BMI 21.7
== END ==
PROVIDERS: PCP Family Medicine; Visit Provider Psychiatry & Neurology Psychiatry
DX: F20.89 Other schizophrenia (principal); Z79.899 Other long term (current) drug therapy
CPT/HCPCS: 85007; 85027